=== PATIENT | female | born 2005 | race Caucasian/White ===

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

== ENCOUNTER 2025-02-22 10:50 | Emergency (ER) | payer OTHER, SELFPAY ==
[2025-02-22 10:57] VITALS: BP 148/92; PULSE 100; TEMP 36.8; O2SAT 99; BMI 28.1
--- NOTE | 2025-02-22 11:06 | ED.GENADUL1 ---
HPI HPI - General Adult General Chief complaint: Wound/Laceration Stated complaint: c left thumb puncture, & possible allergic react Time Seen by Provider: 02/22/25 10:55 History of Present Illness HPI narrative: 20-year-old female presents for an injury to her left thumb. She sustained an injury from a sharp metallic blade which she was grinding at work. This happened this morning. Her last tetanus shot was 8 years ago. Related Data Previous Rx's ?Medication ?Instructions ?Recorded cephalexin 250 mg capsule 250 mg PO Q8H #15 caps 02/22/25 Allergies Allergy/AdvReac Type Severity Reaction Status Date / Time codeine Allergy Severe Swelling Verified 02/22/25 10:57 of Lip/Tongue/Throat latex AdvReac Mild Hives Verified 02/22/25 10:57 Opioid HPI Opioid Management Most Recent Opioid Data: Last Pain Scale 7 08/29/24, 06:16 Review of Systems ROS Narrative A ten point review of systems is negative except as noted above. PFSH PFSH Social History Little interest or pleasure in doing things: not at all Feeling down, depressed, or hopeless: not at all Exam Narrative Exam Narrative: Nurses note and vital signs reviewed and patient is not hypoxic. General: The patient appears well and in no apparent distress. Patient is resting comfortably on cart. Skin: Warm, dry, no pallor noted. There is no rash noted. Head: Normocephalic, atraumatic Eye: Normal conjunctiva, no drainage Ears, Nose, Mouth, and Throat: oral mucosa is moist. Nares patent. Cardiovascular: Regular Rate and Rhythm Respiratory: Patient is in no distress, no accessory muscle use Back: non-tender GI: Nontender Musculoskeletal: The left thumb is examined there is a punctate wound at the distal tip. IP joint has intact motion. Neurological: A&O, normal speech Psychiatric: Cooperative Constitutional Vital Signs, click to edit/add: Last Vital Signs Temp 98.3 F 02/22/25 10:57 Pulse 100 H 02/22/25 10:57 Resp 16 02/22/25 10:57 BP 148/92 H 02/22/25 10:57 Pulse Ox 99 02/22/25 10:57 O2 Del Method Room Air 02/22/25 10:57 Course Vital Signs Vital signs: Vital Signs Temperature 98.3 F 02/22/25 10:57 Pulse Rate 100 H 02/22/25 10:57 Respiratory Rate 16 02/22/25 10:57 Blood Pressure 148/92 H 02/22/25 10:57 Pulse Oximetry 99 02/22/25 10:57 Oxygen Delivery Method Room Air 02/22/25 10:57 Temperature 98.3 F 02/22/25 10:57 Pulse Rate 100 H 02/22/25 10:57 Respiratory Rate 16 02/22/25 10:57 Blood Pressure 148/92 H 02/22/25 10:57 Pulse Oximetry 99 02/22/25 10:57 Oxygen Delivery Method Room Air 02/22/25 10:57 Medical Decision Making MDM Narrative Medical decision making narrative: X-ray my interpretation shows no foreign body. Tetanus status is up-to-date and she is placed on a short course of prophylactic Keflex. Treatment diagnosis and follow-up were discussed with the patient. Differential Diagnosis Differential Diagnosis: Puncture wound, 1 by Imaging Data Left hand x-ray: My impression: No foreign body Discharge Plan Discharge Chief Complaint: Wound/Laceration Clinical Impression: Puncture wound Patient Disposition: Home, Self-Care Time of Disposition Decision: 11:31 Condition: Good Mode of Transportation: Private Vehicle Prescriptions / Home Meds: New cephalexin 250 mg capsule 250 mg PO Q8H Qty: 15 0RF Print Language: Citizen Of [place] Instructions: Puncture Wound (ED) Referrals: Physician,Non-Staff, MD [Primary Care Provider] - 1 week
== END 2025-02-22 12:04 | disposition home or self-care (01) ==
PROVIDERS: Emergency Provider Emergency Medicine
DX: S61.032A Puncture wound without foreign body of left thumb without damage to nail, initial encounter (principal); W45.8XXA Other foreign body or object entering through skin, initial encounter
CPT/HCPCS: 73130; 99283

== ENCOUNTER 2025-08-20 08:55 | Emergency (ER) | payer BC, SELFPAY ==
[2025-08-20 09:02] VITALS: BP 156/89; PULSE 104; TEMP 36.7; O2SAT 99; BMI 28.1
--- NOTE | 2025-08-20 09:14 | ED_ITS ---
HPI - Female Genitourinary General Chief complaint: Urogenital-Female Stated complaint: symptoms of UTI Time Seen by Provider: 08/20/25 09:00 Source: patient Mode of arrival: walk-in History of Present Illness HPI Narrative: cc - urinary symptoms Symptoms started yesterday. Pt is about 8 weeks . She has dysuria and frequency and urine was dark, possibly blood in it. Mild suprapubic cramping. No vaginal bleeding or spotting. , LMP 06/25/25, EDC 04/01/26. Related Data Home Medications ?Medication ?Instructions ?Recorded ?Confirmed Vitamin PO DAILY 08/20/25 Previous Rx's ?Medication ?Instructions ?Recorded cephalexin 500 mg capsule 500 mg PO BID 7 days #14 cap s 08/20/25 Allergies Allergy/AdvReac Type Severity Reaction Status Date / Time codeine Allergy Severe Swelling Verified 08/20/25 09:01 of Lip/Tongue/Throat latex AdvReac Mild Hives Verified 08/20/25 09:01 PFSH PFSH Social History Little interest or pleasure in doing things: not at all Feeling down, depressed, or hopeless: not at all Exam Narrative Exam Narrative: Nurses notes and vital signs reviewed and patient is not hypoxic. afebrile General: Well-appearing and in no apparent distress. Skin: Warm, dry, no pallor noted. Eye: Pupils are equal, round and EOMI. No scleral icterus. Ears, Nose, Mouth, and Throat: Oral mucosa is moist Cardiovascular: Regular Rate and Rhythm without murmur, gallop or rub. Respiratory: No accessory muscle use or respiratory distress. Lungs are clear to auscultation, no wheezing, rales or rhonchi Back: No CVA tenderness Musculoskeletal: normal ROM GI: Abdomen is soft, non-distended. Normal bowel sounds. No suprapubic tenderness to palpation. No rebound, guarding, or rigidity noted. Neurological: A&O x4. No cranial nerve dysfunction observed. No truncal ataxia. Moves all extremities. Sensation intact. Psychiatric: Cooperative and interactive. Normal mood and affect. Constitutional Vital Signs, click to edit/add: Last Vital Signs Temp 98.1 F 08/20/25 09:02 Pulse 104 H 08/20/25 09:02 Resp 18 08/20/25 09:02 BP 156/89 H 08/20/25 09:02 Pulse Ox 99 08/20/25 09:02 O2 Del Method Room Air 08/20/25 09:02 Course Vital Signs Vital signs: Vital Signs Temperature 98.1 F 08/20/25 09:02 Pulse Rate 104 H 08/20/25 09:02 Respiratory Rate 18 08/20/25 09:02 Blood Pressure 156/89 H 08/20/25 09:02 Pulse Oximetry 99 08/20/25 09:02 Oxygen Delivery Method Room Air 08/20/25 09:02 Temperature 98.1 F 08/20/25 09:02 Pulse Rate 104 H 08/20/25 09:02 Respiratory Rate 18 08/20/25 09:02 Blood Pressure 156/89 H 08/20/25 09:02 Pulse Oximetry 99 08/20/25 09:02 Oxygen Delivery Method Room Air 08/20/25 09:02 MDM - Female Genitourinary MDM Narrative Medical decision making narrative: Urine obtained and sent for testing. UA reveals findings consistent with acute urinary tract infection. Urine cultu res pending. Patient was discharged home with a prescription for Keflex 500 mg twice daily for 1 week. She will follow-up with her finding fastener. Lab Data Attestation: I reviewed the patient's lab results. Labs: Lab Results 08/20/25 Range/Units 09:00 Urine Color Lt. yellow (YELLOW) Urine Clarity Clear (CLEAR) Urine pH 7.0 (5.0-9.0) Ur Specific [place] 1.010 (1.005-1.025) Urine Protein Negative (NEG/TRACE) mg/dL Urine Glucose (UA) Negative (NEGATIVE) mg/dL Urine Ketones Negative (NEGATIVE) mg/dL Urine Occult Blood Moderate A (NEGATIVE) Urine Nitrite Negative (NEGATIVE) Urine Bilirubin Negative (NEGATIVE) Urine Urobilinogen 1.0 (0.2-1.0) EU/dL Ur Leukocyte Esterase Small A (NEGATIVE) Urine RBC 5-10 A (0-2) #/HPF Urine WBC 2-5 A (NONE SEEN) #/HPF Ur Squamous Epith Cells Few A (NONE/RARE) #/LPF Urine Crystals None seen (None Seen) #/HPF Urine Bacteria Trace A (NONE SEEN) #/HPF Urine Casts None seen (NONE SEEN) #/LPF Urine Mucus None seen (NONE SEEN) Ur Culture Indicated? Yes-[facility] [place] Discharge Plan Discharge Chief Complaint: Urogenital-Female Clinical Impression: Urinary tract infection Patient Disposition: Home, Self-Care Time of Disposition Decision: 09:58 Prescriptions / Home Meds: New cephalexin 500 mg capsule 500 mg PO BID 7 Days Qty: 14 0RF No Action Vitamin tablet PO DAILY Print Language: [place] Instructions: Urinary Tract Infection in (ED) Referrals: Physician,Non-Staff, MD [Primary Care Provider] - 1 week
--- OUTSIDE RECORDS SUMMARY | 2025-08-20 09:16 | XMS_ITS | Patient Health Record ---
Author Organization [facility] in [place] Address [address] [place] [address] Support Name Relationship Address Phone Bassam Padron Emergency Contact Unknown Madie Padron Guarantor Unknown Reason For Referral No Information Plan Of Treatment No Information Insurance Providers Payer Name Payer Address Payer Phone Subscriber Number Group Number Insured Name Patient Relationship to Insured Coverage Start Date Coverage End Date SELF PAY ON PATIENT [employer] Jose Padronelf - patient is the [id number]/[id number]
--- OUTSIDE RECORDS SUMMARY | 2025-08-20 09:16 | XMS_ITS | Clinical Summary ---
Author Organization [facility] Address [address] [place] [address] Care Team Providers Care Supervisor Correspondence Section Name Role Phone Unavailable Primary Care Provider Unavailabl e Family History RelationNameStatusCommentsFatherAliveMotherAlive Social History Tobacco UseTypesPacks/DayYears UsedDateSmoking Tobacco: Never Tobacco Cessation:Counseling Given: Not Answered Alcohol UseStandard Drinks/WeekCommentsNever0 (1 standard drink = 0.6 oz pure alcohol)CommentsUnknownSex and Gender InformationValueDate RecordedSex Assigned at BirthNot on fileLegal OxyHyrztm76/15/2023 7:15 PM EDTGender Identity Not on fileSexual OrientationNot on file Last Filed Vital Signs Vital SignReadingTime TakenCommentsBlood Pressure--Pulse--Temperature-- Respiratory Rate--Oxygen Saturation--Inhaled Oxygen Concentration--Amkiaa44.1 kg (170 lb)02/21/2020 12:00 PM ISEOjoira176.3 cm (5' 9 )02/21/2020 12:00 PM EDTBody Mass Index25. 12:00 PM EDT Plan of Treatment DateTypeDepartmentCare Team (Latest Contact Info)Ywtgaryajnr31/07/2025 9:30 AM ESTAncillary [place] [address] 08/25/2025 10:00 [place] [address] Insurance
--- OUTSIDE RECORDS SUMMARY | 2025-08-20 09:16 | XMS_ITS | CCD ---
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 above:Performed By: #### CDP, BMP #### [facility] [address] [place] [address] Internet Marketing Director: Dionicio Bojorquez MDGFR/1.73 sq M.predicted among non-blacks MDRD (S/P/Bld) [Vol rate/Area]mL/min/{1.73_m2}Normal>60[facility] Community HospitalComment on above:Result Comment: These results are not intended for use in patients <18 years of age. eGFR results are calculated without a race factor using the 2020 CKD-EPI equation. Careful clinical correlation is recommended, particularly when comparing to results calculated using previous equations. The CKD-EPI equation is less accurate in patients with extremes of muscle mass, extra-renal metabolism of creatine, excessive creatine ingestion, or following therapy that affects renal tubular secretion.Performed By: #### CDP, BMP #### [facility] [address] [place] [address] Internet Marketing Director: Dionicio Bojorquez MDGlucose [Mass/Vol]124 mg/sKFmij48-24AfahuEnloe Medical CenterComment on above:Performed By: #### CDP, BMP #### [facility] [address] [place] [address] Internet Marketing Director: FRANCISCA Mayootassium [Moles/Vol]4.7 mmol/LNormal3.7-5.3 [facility] Community HospitalComment on above:Result Comment: Specimen hemolysis has exceeded the interference as defined by Michelle. Value may be falsely increased. Suggest recollection if clinically indicated.Performed By: #### CDP, BMP #### [facility] [address] [place] [address] Internet Marketing Director: HAROLDO Mayoodium [Moles/Vol]138 mmol/UFcuuuh450-493AbpbxHarrison Community HospitalComment on above:Performed By: #### CDP, BMP #### [facility] [address] [place] [address] Internet Marketing Director: Dionicio Bojorquez MDUrea nitrogen [Mass/Vol]16 mg/dLNormal6-20[facility] HospitalComment on above:Performed By: #### CDP, BMP #### [facility] [address] [place] [address] Internet Marketing Director: Dionicio Bojorquez [facility] with Auto Differentialon 02-33-3159Uicpnyerg (Bld) [#/Vol][facility] HealthBasophils/100 WBC (Bld)0 %0 - 2 %[facility] HealthEosinophils (Bld) [#/Vol][facility] Eosinophils/100 WBC (Bld)0 %Low1 - 4 %[facility] HealthErythrocyte distribution width (RBC) [Ratio]13.4 %11.8 - 14.4 %[facility] Hematocrit (Bld) [Volume fraction]37.9 %36.3 - 47.1 %[facility] Hemoglobin (Bld) [Mass/Vol]12.8 g/dL11.9 - 15.1 g/dLBon Secours [facility] Immature granulocytes (Bld) [#/Vol]0.05 10*3/uLBon Secours Mercy HealthImmature granulocytes/100 WBC (Bld)0 %0[facility] HealthInterpretation and review of laboratory resultsAbnormalBon Secours Mercy HealthLymphocytes/100 WBC (Bld)12 %Low25 - 45 %[facility] SecMain Campus Medical CenterLymphocytes/100 WBC (Bld)1.50 %[facility] SecOhioHealth Hardin Memorial HospitalH (RBC) [Entitic mass]28.5 pg25.2 - 33.5 pgBon SecOhioHealth Hardin Memorial HospitalHC (RBC) [Mass/Vol]33.8 g/dL28.4 - 34.8 g/dLBon SecOhioHealth Hardin Memorial HospitalV (RBC) [Entitic vol]84.4 fL82.6 - 102.9 fLBon SecHuey P. Long Medical Center HealthMonocytes/100 WBC (Bld)3 %2 - 8 %[facility] SecMain Campus Medical CenterMonocytes/100 WBC (Bld)0.38 %Bon SecMain Campus Medical CenterNeutrophils/100 WBC (Bld)85 %High34 - 64 %Bon SecMain Campus Medical CenterNucleated RBC/100 WBC (Bld) [Ratio]0.0 %0.0 per 100 WBCBon [facility] HealthPlatelet mean volume (Bld) [Entitic vol]10.3 fL8.1 - 13.5 fLBon SecHuey P. Long Medical Center HealthPlatelets (Bld) [#/Vol]248 10*3/uLBon SecHuey P. Long Medical Center HealthRBC (Bld) [#/Vol]4.49 10*6/uL3.95 - 5.11 m/uLBon [facility] Ment[facility] HospitalSegmented neutrophils/100 WBC (Bld)10.19 %HighBon [facility] Clinic [facility] HospitalWBC other (Bld) [#/Vol]12.1Bon SecAscension All Saints Hospital SatelliteCBC with Diffon [id number]. Basophil<0.69Qzbqao6.00-0.20[facility] Comment on above:Performed By: #### CDP, BMP #### [facility] [address] [place] [address] Internet Marketing Director: Boy Mayo. Eosinophil<0.02Hhmufj2.00-0.44Harrison Community HospitalComment on above:Performed By: #### CDP, BMP #### [facility] [address] [place] [address] Internet Marketing Director: MDAbs. Maria EstherImm.Granulocyte0.05 k/uLNormal0.00-0.30[facility] Community HospitalComment on above:Performed By: #### CDP, BMP #### [address] [address] Internet Marketing Director: Boy Mayo.Neutrophil (Seg)10.19 k/uLHigh1.80-8.00Harrison Community HospitalComment on above:Performed By: #### CDP, BMP #### [address] [address] Internet Marketing Director: Dionicio Bojorquez MDBasophils/100 WBC (Bld)0 %Normal0-2MEnloe Medical CenterComment on above:Performed By: #### AMELIE, BMP #### [address] [address] Internet Marketing Director: Dionicio Bojorquez MDEosinophils/100 WBC (Bld)0 %Low1-4[facility] Community HospitalComment on above:Performed By: #### AMELIE, BMP #### [address] [address] Internet Marketing Director: Dionicio Bojorquez MDErythrocyte distribution width (RBC) [Ratio]13.4 %Gmmmib04.8-14.4[facility] Community HospitalComment on above:Performed By: #### CDP, BMP #### [facility] [address] [place] [address] Internet Marketing Director: Dionicio Bojorquez MDHematocrit (Bld) [Volume fraction]37.9 %Normal 36.3-47.1MEnloe Medical CenterComment on above:Performed By: #### CDP, BMP #### [address] [address] Internet Marketing Director: Dionicio Bojorquez MDHemoglobin (Bld) [Mass/Vol]12.8 g/dLNormal 11.9-15.1MEnloe Medical CenterComment on above:Performed By: #### AMELIE, BMP #### [address] [address] Internet Marketing Director: Dionicio Bojorquez MDImmature granulocytes/100 WBC (Bld)0 %Normal0 Harrison Community HospitalComment on above:Performed By: #### AMELIE, BMP #### [address] [address] Internet Marketing Director: Dionicio Bojorquez MDLymphocytes (Bld) [#/Vol]1.50 10*3/uLNormal 1.20-5.20[facility] HospitalComment on above:Performed By: #### AMELIE, BMP #### [address] [address] Internet Marketing Director: Ruddy Mayomphocytes/100 WBC (Bld)12 %Erk16-57ImpalHarrison Community HospitalComment on above:Performed By: #### AMELIE, BMP #### [address] [address] Internet Marketing Director: THANH MayoCH (RBC) [Entitic mass]28.5 mbAdrigy11.2-33.5 [facility] Community HospitalComment on above:Performed By: #### AMELIE, BMP #### [address] [address] Internet Marketing Director: THANH MayoCHC (RBC) [Mass/Vol]33.8 g/xSGpkkyh68.4-34.8 [facility] HospitalComment on above:Performed By: #### CDP, BMP #### [address] [address] Internet Marketing Director: HTANH MayoCV (RBC) [Entitic vol]84.4 dRKhabwo47.6-102.9 [facility] HospitalComment on above:Performed By: #### CDP, BMP #### [address] [address] Internet Marketing Director: Dionicio Bojorquez MDMonocytes (Bld) [#/Vol]0.38 10*3/uLNormal 0.10-1.40[facility] Community HospitalComment on above:Performed By: #### CDP, BMP #### [address] [address] Internet Marketing Director: THANH Mayoonocytes/100 WBC (Bld)3 %Normal2-8[facility] Community HospitalComment on above:Performed By: #### AMELIE, BMP #### [place] [address] Internet Marketing Director: Michelle Mayoophil (Seg)85 %Zofv15-93BpihoHarrison Community HospitalComment on above:Performed By: #### AMELIE, BMP #### [address] [address] Internet Marketing Director: Dionicio Bojorquez MDNRBC Automated0.0 per 100 WBCNormal0.0H[facility] Community HospitalComment on above:Performed By: #### AMELIE, BMP #### [place] [address] Internet Marketing Director: Brooks Mayotelet mean volume (Bld) [Entitic vol]10.3 fL Normal8.1-13.5H[facility] Community HospitalComment on above:Performed By: #### CDP, BMP #### [address] [address] Internet Marketing Director: Dionicio Bojorquez MDPlatelets (Bld) [#/Vol]248 10*3/nZKwcovd315-198 [facility] HospitalComment on above:Performed By: #### AMELIE, BMP #### [facility] [address] [place] [address] Internet Marketing Director: OLLIE Mayo ([facility]) [#/Vol]4.49 10*6/uLNormal3.95-5.11 [facility] HospitalComment on above:Performed By: #### AMELIE, BMP #### [facility] [address] [place] [address] Internet Marketing Director: GLEN Mayo ([facility]) [#/Vol]12.1 10*3/uLNormal4.5-13.5[facility] HospitalComment on above:Performed By: #### AMELIE, BMP #### [facility] [address] [place] [address] Internet Marketing Director: Lashonda Mayo Panel InformationOrdered By: Radha Ortega on 69-13-5155Csrqf Strep (POC)[facility] HospitalCOVID + FLU Quick Testingon [id number]-CoV-2 (COVID-19) RNA OSCAR+probe Ql (Unsp spec)Negative [employer] Other COVID + FLU Quick TestingNegativeHenderson ClientShow Other Quick Strepon 10-26-2023S. pyogenes Org specific cx Ql (Throat)NegativeHenderson ClientShow Other Quick StrepTopTechPhoto ClientShow Other CARDIAC MATIAS ADMITon [id number] [Catalytic activity/Vol]200 U/LCritically xowq50-072MizMercy Health Urbana HospitalComment on above: Performed By: #### TOM RAMOS #### [facility] [address] [place], [place] [address] Dr. Alex Savage.MB [Mass/Vol]1.00 ng/mLNormal<=3.60The [facility] Comment on above:Performed By: #### TOM RAMOS #### [facility] [address] [place] [address] [address] Alex DuqueOP<4.7Ezkqsq3.0-51.3The [facility] HospitalComment on above: Result Comment: CUT-OFF POINTS HAVE BEEN ESTABLISHED BASED ON THE FOURTH UNIVERSAL DEFINITIONS OF MYOCARDIAL INFARCTION. THE UPPER REFERENCE LIMIT (URL) OF TROPONIN, DEFINED THE 99TH PERCENTILE OF cTnI DISTRIBUTION IN A REFERENCE POPULATION, HAS BEEN CONFIRMED THE DECISION THRESHOLD FOR SD DIAGNOSIS.Performed By: #### BMP, CMADM #### [facility] [address] [place] [address] Dr. Alex NamMYO37 ng/mLNormal9-82The [facility] HospitalComment on above: Performed By: #### BMP, CMADM #### [facility] [address] [place] [address] Dr. Alex Barber AUTO DIFFon [id number] #0.0 103/ulNormal0.0-0.1The [facility] HospitalComment on above:Performed By: #### CBC #### [facility] [address] [place] [address] Dr. Alex Obandosophils/100 WBC (Bld)0.4 %Normal0.2-2.0The [facility] Comment on above:Performed By: #### CBC #### [facility] [address] [place] [address] Dr. Alex Stayc #0.1 103/ulNormal0.0-0.7The [facility] HospitalComment on above: Performed By: #### CBC #### [facility] [address] [place] [address] Dr. Alex Nicoleosinophils/100 WBC (Bld)0.5 %Critically low0.9-7.0The [facility] HospitalComment on above:Performed By: #### CBC #### [facility] [address] [place] [address] Dr. Alex Nicolerythrocyte distribution width (RBC) [Ratio]12.9 %Vgzfbd81.0-15.0 The [facility] HospitalComment on above:Performed By: #### CBC #### [facility] [address] [place] [address] Dr. Alex Finkatocrit (Bld) [Volume fraction]43.5 %Csnpyx56.0-48.0The [facility] HospitalComment on above:Performed By: #### CBC #### [facility] [address] [place] [address] Dr. Alex NamHemoglobin (Bld) [Mass/Vol]13.6 g/jAAgnytt87.0-16.0The [facility] HospitalComment on above:Performed By: #### CBC #### [facility] [address] [place] [address] Dr. Alex Haji #0.03 10e3/ulNormal0.00-0.03The [facility] HospitalComment on above:Performed By: #### CBC #### [facility] [address] [place] [address] Dr. Alex Haji %0.3 %Normal0.0-0.5The [facility] HospitalComment on above: Performed By: #### CBC #### [facility] [address] [place] [address] Dr. Alex Gipson #3.7 103/ulNormal1.2-3.8The [facility] HospitalComharper university hospital on above:Performed By: #### CBC #### [facility] [address] [place] [address] Dr. Alex Molinamphocytes/100 WBC (Bld)37.8 %Ufvkvw50.5-60.0The [facility] HospitalComment on above:Performed By: #### CBC #### [facility] [address] [place] [address] Dr. Alex ReardonUAL DIFF REQNONormalThe [facility] HospitalComment on above: Performed By: #### CBC #### [facility] [address] [place] [address] Dr. Alex Chu (RBC) [Entitic mass]28.5 nuUxaxde74.7-34.0The [facility] HospitalComment on above:Performed By: #### CBC #### [facility] [address] [address] [address] Alex BenitoHC (RBC) [Mass/Vol]31.3 g/zERhqakg23.9-35.2The [facility] HospitalComment on above:Performed By: #### CBC #### [facility] [address] [place] [address] Dr. Alex BenitoV (RBC) [Entitic vol]91.2 yKYckocw02.1-95.6The [facility] HospitalComment on above:Performed By: #### CBC #### [facility] [address] [place] [address] Dr. Alex Javed #0.9 103/ulCritically high0.3-0.8The [facility] Comment on above:Performed By: #### CBC #### [facility] [address] [place] [address] Dr. Alex Denisocytes/100 WBC (Bld)8.9 %Normal1.7-12.0The [facility] Comment on above:Performed By: #### CBC #### [facility] [address] [place] [address] Dr. Alex Foreman #5.1 103/ulNormal1.4-6.5The [facility] HospitalComment on above:Performed By: #### CBC #### [facility] [address] [place] [address] Dr. Alex Anayautrophils/100 WBC (Bld)52.1 %Wfzybv94.0-75.0The [facility] HospitalComment on above:Performed By: #### CBC #### [facility] [address] [place] [address] Dr. Alex Balet mean volume (Bld) [Entitic vol]10.2 fLNormal9.5-13.5The [facility] HospitalComment on above:Performed By: #### CBC #### [facility] [address] [place] [address] Dr. Alex NamPLT288 103/cxTkpkcf822-850Hbc [facility] HospitalComment on above: Performed By: #### CBC #### [facility] [address] [place] [address] [address] Alex NamRBC4.77 106/ulNormal3.40-5.30The [facility] Hospitalment on above:Performed By: #### CBC #### [facility] [address] [place] [address] [address] Alex NamWBC9.8 103/ulNormal4.0-11.0The [facility] HospitalComment on above: Performed By: #### CBC #### [facility] [address] [address] [address] Alex Macario-19 PCR ([facility])on [id number]-CoV-2 (COVID-19) RNA OSCAR+probe Ql (Unsp spec)Not detectedNormalNOT DETECTEDThe [facility] Comment on above:Result Comment: This test is not yet approved or cleared by the [place] FDA. When there are no FDA-approved or cleared tests available, and other criteria are met, FDA can make tests available under an emergency access mechanism called an Emergency Use Authorization (EUA). The EUA for this test is supported by the [place] of Health and Human Service's (HHS's) declaration that circumstances exist to justify the emergency use of in vitro diagnostics for the detection and/or diagnosis of the virus that causes COVID- 19. This EUA will remain in effect (meaning [...] of clinical signs and symptoms consistent with SARS-CoV-2.Performed By: #### DDIM #### [facility] [address] [place] [address] Dr. Alex Garrido-DIMERon [id number]-DIMER<0.19Normal<=0.59[facility] Comment on above:Performed By: #### DDIM #### [facility] [address] [place] [address] Dr. Alex Moore [facility] on above:Result Comment: Increases in D-Dimer concentration observed with thromboembolic events [...] stress, and generalized hospitalization. Performed By: #### DDIM #### [facility] [address] [place] [address] Dr. Alex Buenrostro AND B AGon [id number] North Health Center on above:Result Comment: Negative for Flu A protein angiten. Infection due to Flu A cannot be ruled out. FluA angiten in the sample may be below the detection limit of the test.Performed By: #### DDIM #### [facility] [address] [place] [address] Dr. Alex MooreUBNEGSamaritan North Health Center on above: Result Comment: Negative for Flu B protein antigen. Infection due to Flu B cannot be ruled out. FluB antigen in the sample may be below the detection limit of the test.Performed By: #### DDIM #### [facility] [address] [place] [address] Dr. Alex Buenrostro AGNegativeNormalNEGATIVE SEE COMMENTThe [facility] on above:Performed By: #### DDIM #### [facility] [address] [place] [address] Dr. Alex Cruz AGNegativeNormalNEGATIVE SEE COMMENTThe [facility] on above:Performed By: #### DDIM #### [facility] [address] [place] [address] Dr. Alex Marinelli URon [id number], QUALNegativeNormalNEGATIVEThe [facility] HospitalComment on above:Performed By: #### PREGU #### [facility] [address] [place] [address] [address] Alex Odom CHEM 8 (BAS METB)on [id number] [facility] Comment on above:Performed By: #### BMP, CMADM #### [facility] [address] [place] [address] [address] Alex Hayon gap [Moles/Vol]11.6 mmol/LNormalMercy Health Urbana Hospital Comment on above:Performed By: #### BMP, CMADM #### [facility] [address] [place] [address] Dr. Alex NamCalcium [Mass/Vol]9.9 mg/dLNormal8.5-10.1[facility] Comment on above:Performed By: #### BMP, CMADM #### [facility] [address] [place] [address] [address] Alex NamChloride [Moles/Vol]103 mmol/PHxbiuf23-111QitMercy Health Urbana Hospital Comment on above:Performed By: #### BMP, CMADM #### [facility] [address] [place] [address] Dr. Alex NamCO2 [Moles/Vol]29.2 mmol/YUpkmok09.0-32.0The [facility] Comment on above:Performed By: #### BMP, CMADM #### [facility] [address] [place] [address] Dr. Alex NamCreatinine [Mass/Vol]0.94 mg/dLNormal0.55-1.02The [facility] HospitalComment on above:Performed By: #### BMP, CMADM #### [facility] [address] [place] [address] Dr. Alex NicoleGFR-AF AMERICANNormal>=60The [facility] HospitalComment on above: Performed By: #### BMP, CMADM #### [facility] [address] [place] [address] Dr. Alex NicoleGFR-NON AF AMERICANNormal>=60The [facility] HospitalComment on above:Performed By: #### BMP, CMADM #### [facility] [address] [place] [address] [address] Alex NamGlucose [Mass/Vol]95 mg/sGKbhktz29-702FnnMercy Health Urbana Hospital Comment on above:Performed By: #### BMP, CMADM #### [facility] [address] [place] [address] [address] Alex NamPotassium [Moles/Vol]3.8 mmol/LNormal3.5-5.1[facility] Comment on above:Performed By: #### RICHARD, CMADM #### [facility] [address] [place] [address] Dr. Alex NamSodium [Moles/Vol]140 mmol/RObengv006-337EcnMercy Health Urbana Hospital Comment on above:Performed By: #### RICHARD, CMADM #### [facility] [address] [place] [address] Dr. Alex NamUrea nitrogen [Mass/Vol]18.0 mg/dLNormal6.4-19.3TKettering Health TroyComment on above:Performed By: #### RICHARD, CMADM #### [facility] [address] [place] [address] Dr. Alex Kirkland nitrogen/Creatinine [Mass ratio]19.1 mg/mgNoDayton Osteopathic HospitalComment on above:Performed By: #### RICHARD, CMADM #### [facility] [address] [place] [address] Dr. Alex NamXR CHEST 1 Von [id number] CHEST 1 VEXAMINATION: XR CHEST 1 V HISTORY: Shortness of breath COMPARISON: None available. TECHNIQUE: Portable chest FINDINGS: The lung parenchyma is free of consolidation or infiltrate. No pneumothorax or pleural effusion. The cardiac, mediastinal and hilar contours are normal. The visualized osseous structures exhibit no gross abnormality. IMPRESSION: No acute cardiopulmonary abnormality. Electronically authenticated by: CHRIS WONG Date: 2022-11-12 22:43[facility] - DublinCULTURE URINEon [id number] URINEIsolate 1 Escherichia coli >100,000 cfu/mL of ORGANISM 1 Escherichia coli ANTIBIOTIC M.I.C RX STATUS Ampicillin 4 S F Ampicillin/Sulbactam <=2 S F Piperacillin/Tazobactam <=4 S F Cefazolin <=4 S F Ceftazidime <=1 S F Ceftriaxone <=1 S F Ertapenem <=0.5 S F Imipenem <=0.25 S F Amikacin <=2 S F Gentamicin <=1 S F Tobramycin <=1 S F Ciprofloxacin <=0.25 S F Levofloxacin <=0.12 S F Nitrofurantoin <=16 S F Trimethoprim/Sulfamethoxazole <=20 S FNormalMercy Health Urbana HospitalComment on above:Performed By: #### URCX #### [facility] [address] [place] [address] Dr. Alex Watson URINE PROFILEon [id number] Ql (U)NegativeNormal NEGATIVEMercy Health Urbana HospitalComment on above:Performed By: #### UMICRO, ERUR, PREGU #### [facility] [address] [place] [address] Dr. Alex Bowles (U)CLEARNormalCLEARMercy Health Urbana HospitalComharper university hospital on above: Performed By: #### UMICRO, ERUR, PREGU #### [facility] [address] [place] [address] Dr. Alex Gasca (U)YELLOWNormalYELLOWMercy Health Urbana HospitalComment on above: Performed By: #### UMICRO, ERUR, PREGU #### [facility] [address] [place] [address] Dr. Alex Vang micrscopic examination will be performed if indicated. NormalMercy Health Urbana HospitalComment on above:Performed By: #### UMICRO, ERUR, PREGU #### [facility] [address] [place] [address] Dr. Alex Mendozaose Ql (U)NegativeNormalNEGATIVEMercy Health Urbana HospitalComment on above:Performed By: #### UMICRO, ERUR, PREGU #### [facility] [address] [place] [address] [address] Alex NamHemoglobin Ql (U)NegativeNormalNEGATIVEMercy Health Urbana Hospital Comment on above:Performed By: #### UMICRO, ERUR, PREGU #### [facility] [address] [place] [address] [address] Alex NamKetones Ql (U)NegativeNormalNEGATIVEThe [facility] HospitalComment on above:Performed By: #### UMICRO, ERUR, PREGU #### [facility] [address] [place] [address] [address] Alex NamLEUKOCYTESNegativeNormalNEGATIVEMercy Health Urbana HospitalComment on above:Performed By: #### UMICRO, ERUR, PREGU #### [facility] [address] [place] [address] Dr. Alex NamNitrite Ql (U)PositiveAbnormalNEGATIVEMercy Health Urbana Hospital Comment on above:Performed By: #### UMICRO, ERUR, PREGU #### [facility] [address] [place] [address] Dr. Alex NampH (U)7.5 [pH]Normal5-9The [facility] HospitalComment on above: Performed By: #### UMICRO, ERUR, PREGU #### [facility] [address] [place] [address] Dr. Alex NamSPEC GRAVITY1.864Hqokdp3.005-<=1.025The [facility] HospitalComment on above:Performed By: #### UMICRO, ERUR, PREGU #### [facility] [address] [address] [address] Alex NamUA PROTEINNegativeNormalNEGATIVE/ TRACEMercy [facility] Comment on above:Performed By: #### UMICRO, ERUR, PREGU #### [facility] [address] [address] [address] Alex NamUR MICRO INDINDICATEDNormalThe [facility] HospitalComment on above: Performed By: #### UMICRO, ERUR, PREGU #### [facility] [address] [place] [address] Dr. Alex Grigsby Qn (U)1.0 {Colin'U}/dLNormal0.2 - 1.0The [facility] Hospitalment on above:Performed By: #### UMICRO, ERUR, PREGU #### [facility] [address] [place] [address] Dr. Alex WilsonGNANCY URon 44-41-9703MEFKMIHSM, QUALNegativeNormalNEGATIVEThe [facility] HospitalComment on above:Performed By: #### UMICRO, ERUR, PREGU #### [facility] [address] [place] [address] Dr. Alex Hamlin MICROSCOPIC ONLYon 74-97-1961XYMOLQFHEOLLRBwnzbxliRRSO SEEN The [facility] HospitalComharper university hospital on above:Performed By: #### UMICRO, ERUR, PREGU #### [facility] [address] [place] [address] Dr. Alex Gary identified Cx Nom (U)INDICATEDSt. Louis Va Medical CenteralThParkview Health Bryan HospitalComharper university hospital on above:Performed By: #### UMICRO, ERUR, PREGU #### [facility] [address] [place] [address] Dr. Alex Valencia SEENNormalNONE SEENMercy Health Urbana HospitalComharper university hospital on above:Performed By: #### UMICRO, ERUR, PREGU #### [facility] [address] [place] [address] Dr. Alex Bess LM Nom (Urine sed)NONE SEENNormalNONE SEENMercy Health Urbana HospitalComharper university hospital on above:Performed By: #### UMICRO, ERUR, PREGU #### [facility] [address] [place] [address] Dr. Johnson ChangEpithelial cells LM Ql (Urine sed)FEWAbnormalNONE SEEN /RAREThe [facility] HospitalComment on above:Performed By: #### UMICRO, ERUR, PREGU #### [facility] [address] [place], [place] [address] Dr. Alex NamMUCOUSTRACEAbnormalNONE SEENMercy Health Urbana HospitalComment on above:Performed By: #### UMICINA, ERUR, PREGU #### [facility] [address] [place], [place] [address] Dr. Alex NamRBCNONE SEENAbnormal0-2[facility] HospitalComment on above: Performed By: #### UMICINA, ERUR, PREGU #### [facility] [address] [place], [place] [address] Dr. Alex NamWBC5-10AbnormalNONE SEENThe [facility] HospitalComment on above: Performed By: #### BELEMICINA, ERUR, PREGU #### [facility] [address] [place], [place] [address] Dr. Alex Nam Vital Signs Date TimeVital SignValuePerforming HgxznaftyWxoiamkf79-47-2186 11:00-0500Body wldkhefoanx06.9 [degF]Manjit Frey MD Work Phone: [facility]01-06-2025 11:00-0500Diastolic blood odjsrayp19 mm[Hg]Manjit Frey MD Work Phone: [facility]01-06-2025 11:00-0500Heart rate90 /Uli Frey MD Work Phone: [facility]01-06-2025 11:00-0500 Respiratory rate16 /minManjit Frey MD Work Phone: [facility]01-06-2025 11:00-9429YiG0% (BldA) [Mass fraction]99 %Manjit Frey MD Work Phone: Bon [facility]01-06-2025 11:00-0500Systolic blood mm[Hg]Manjit Frey MD Work Phone: [facility]01-06-2025 07:53-0500Body .3 cmCameron Tk MD Work Phone: [facility]ronT2 BiosystemsLeovmi02-32-9650 07:53-0500Body mass index (BMI) [Ratio]28.06 kg/u6OjrtuqiManjit Frey MD Work Phone: [facility]ronT2 BiosystemsUrdmqk70-26-3695 07:53-0500Body iyxach08.18 kgManjit Frey MD Work Phone: [facility]ronT2 BiosystemsXawzvd12-22-2267 07:22-0500Body ttovkbbgsuu98.7 [degF]Angelica Arora I, DO Work Phone: [facility]ronT2 BiosystemsKdsdll37-98-2028 07:22-0500Diastolic blood nmkacibq07 mm[Hg]Angelica Arora I, DO Work Phone: [facility]ronT2 BiosystemsGafyfy04-69-9017 07:22-0500Heart rate51 /Carlajadon Maite Barboza, DO Work Phone: [facility] [employer]11-12-2024 07:22-0500 Respiratory rate18 /Kelsey Arora I, DO Work Phone: [facility]ronT2 BiosystemsHndoix03-07-1034 07:22-5978GrS3% (BldA) [Mass fraction]99 %Angelica Arora I, DO Work Phone: [facility]ronT2 BiosystemsIqehix17-60-3638 07:22-0500Systolic blood uyfrezol016 mm[Hg]Angelica Arora I, DO Work Phone: [facility] [employer] [facility]ronT2 BiosystemsHhrefk29-20-0546 08:00-0500Body kdzwac839 cmAlejandracitlallijadon Grantdionicioawilda I, DO Work Phone: [facility]ronT2 BiosystemsXtxouh95-32-0730 08:00-0500Body mass index (BMI) [Ratio]30.11 kg/c7Nleojvat Grantdionicioawilda Barboza, DO Work Phone: [facility]11-11-2024 08:00-0500Body uvwhtm78.11 kgMoeusebio Arora I, DO Work Phone: bon [facility]09-14-2024 12:12-0400Body xvinrr407.48 cmC[facility]09-14-2024 12:12-0400Body mass index (BMI) [Percentile] Per age and sex84.7 %[facility] 07-02-2024 12:12-0400Body mass index (BMI) [Ratio]26.2 kg/y3UnhbpcrfzC[facility] Clinic [facility]09-14-2024 12:12-0400Body vlaikhofefr23.2 [degF][facility]09-14-2024 12:12-0400Body pylgyk27.09 kgC[facility]09-14-2024 12:12-0400Diastolic blood xohhbhri67 mm[Hg][facility]09-14-2024 12:12-0400Heart llhp845 /[facility]09-14-2024 12:12-0400Respiratory rate16 /[facility]09-14-2024 12:12-6284CrC4% (BldA) [Mass fraction]99 %[facility]09-14-2024 12:12-0400Systolic blood dfdnzsju521 mm[Hg] [facility]01-08-2024 15:40-0500Body cehauq515.72 Charles Nicole Other [employer] Other 01-08-2024 15:40-0500Body mass index (BMI) [Ratio] 36.18 kg/x5FynxumMireille Nicole Other [employer] Other 01-08-2024 15:40-0500Body jvgglgwgdji111 [degF]Mireille Nicole Other [employer] Other 01-08-2024 15:40-0500Body ujqtpg409.96 kgMireille Nicole Other [employer] Other 01-08-2024 15:40-0500Respiratory rate18 /minAleklandonasif Bonnie Other [employer] Other 01-08-2024 15:40-4515PgS9% (BldA) [Mass fraction]98 % Mireille Tilleymond Other [employer] Other Encounters Encounter DateEncounter TypeCare ProviderFacilityStart: 04-16-2025 End: 18-94-0168Mwonoythn department patient visitNO PCP NO PCPProMedica St. [facility] Medical Centertart: 10-24-2024 End: 60-51-6053symumlenraLPYIDZE C [facility] Hospitaltart: 10-24-2024 End: 55-62-3104Gqyiotjfdd hospital visit by physicianManjit Frey MD Work Phone: stvz ORComment on above:Post-op pain (Primary Dx); Recurrent peritonsillar abscessStart: 04-28-5459vrhjmligunLIGDHKA C SHEEHANFirelands Regional Medical Centertart: 08-29-2024 End: 00-25-9219Pgmpcbxkfw and management of inpatientMohammad Maite DO Work Phone: stvz Observation UnitStart: 77-29-8923Hfkwbfhfhy and management of inpatientSLANRE OVALLEFirelands Regional Medical Centertart: 07-02-2024 End: 65-98-0959njghuaryscWapfdvkliUK [facility] Work Phone: Start: 07-02-2024 End: 94-14-5747Zyjinns encounter procedurePending Sale To [facility] Suraj Work Phone: Start: 10-26-2023 End: 53-76-9316mqhbnmkwqwEmdzrk Dymond Other [facility] [employer] Other Start: 15-71-6694Fsyybg outpatient new 20 minutes Mireille NicoleMERRILLG Urgent Care ClydeStart: 11-12-2022 End: 21-97-3703wwabekyxxeJCUDHC DIABFacility:O6Aceuh: 02-21-2022 End: 02-14-5058synfjujqlzPQ KANU G REINECKFacility:N5Hdduk: 01-17-2022 End: 24-91-8290xuootjjfsvDE KANU G REINECKFacility:H1 Procedures DateProcedureProcedure DetailPerforming ClinicianStart: 48-97-4317Wlyqm test visual color cmprsn Mira Frey MD Work Phone: Start: 77-07-7908Tzc prsmptv pthgnc organism scrn w/colony estimjSlanre Ovalle MD Work Phone: Start: 52-14-5523Rymiy metabolic panel calcium total Mark Ovalle MD Work Phone: Start: 61-40-7535Ugced Strep (POC) Plan of Treatment DateCare ActivityDetailAuthorStart: 44-01-1631CAcP/Tdap/Td vaccine (2 - Td or Tdap)DTaP/Tdap/Td vaccine (2 - Td or Tdap)[facility] CenterStart: 10-24-2024 End: 08-04-4978Unavilcutdjsn & adenoidectomyTONSILLECTOMY ADENOIDECTOMY Recurrent peritonsillar abscess 10/24/2024 9:13 AM [facility] Troytart: 54-06-2715TGZRF-19 Vaccine ( season)COVID-19 Vaccine ( season)[facility] CenterStart: 66-38-2352Plxcbvalx vaccinationFlu vaccine (#1)[facility] CenterStart: 27-77-4331Flnitsyhi B vaccine (1 of 3 - 19+ 3-dose series)Hepatitis B vaccine (1 of 3 - 19+ 3-dose series)[facility]BreakTheCrates.comR[place]: 93-79-4898Iykkpdqez C screeningHepatitis C screenBon [facility]: 91-43-2204Rinfbqrqz for Chlamydia trachomatisChlamydia/GC screenReston Hospital Center [employer]: 32-03-3662CFK vaccine (2 - 3-dose series)HPV vaccine (2 - 3-dose series)[facility] HospitalBreakTheCrates.comR[place]: 27-52-6357EWC screeningHIV [facility] [employer]: 95-80-3881Adzfbwkjs vaccine (1 of 2 - 13+ 2-dose series)Varicella vaccine (1 of 2 - 13+ 2-dose series)[facility] HospitalBreakTheCrates.comR[place]: 01-53-5972Xmfgobxxkq Screen Depression [facility] HospitalBreakTheCrates.comBlue Ridge Regional Hospitaltinuous pulse oximetryPulse oximetry, continuous Respiratory Care Routine Every 4hr until discontinued starting 08/29/2024 FrontstartComment on above:Every 4hr until discontinued starting 08/29/2024 End: 59-45-8928Jqqqkkw, Anaerobic and AerobicRiverside Walter Reed HospitalWidespace Phone: comment on above:One Time for 1 Occurrences starting 08/29/2024 until 08/29/2024 End: 70-40-9856OPBLAXDH PACU OXYGEN THERAPY PROTOCOLInitiate PACU Oxygen Therapy Protocol Respiratory Care Routine Continuous until discontinued starting 10/24/2024 [facility] Phone: comment on above:Continuous until discontinued starting 10/24/2024Oxygen therapy [Minimum Data Set]Initiate Oxygen Therapy Protocol Respiratory Care Routine As Needed until discontinued starting 08/19 [facility] Phone: Comment on above:As Needed until discontinued starting 08/29/2024athology studySurgical Pathology Lab Routine Recurrent peritonsillar abscess Release Upon Ordering for 1 Occurrences starting 10/24/2024 [facility] Phone: Comment on above:Release Upon Ordering for 1 Occurrences starting 10/24/2024 End: 55-93-3959JFBPJGDC PATHOLOGY REPORTSURGICAL PATHOLOGY REPORT Lab Routine Once for 1 Occurrences starting 10/24/2024 until 10/24/2024on [facility]3 HealthComment on above:Once for 1 Occurrences starting 10/24/2024 until 10/24/2024Vaginal pathogens panel - Vaginal fluid by OSCAR with probe detection [facility] Payers DatePayer CategoryPayerPolicy [id number] Cross Blue [id number] [id number] [id number] Social History DateTypeDetailFacilityUnknown if ever smokedNost. luke's hospital ClientShow Other Start: 08-29-2024 End: 11-90-0919Kxu Assigned At [facility] HospitalCuralate [facility] AkronDigit Wireless [facility] CenterStart: 07-02-2024 End: 72-73-8695Nztfely smoking status NHISNever smoked tobacco (finding) [facility] Hospitaltart: 49-25-9490Izc Assigned At [facility] HospitalTobacco smoking status NHISTobacco smoking consumption unknownBon [facility]sonOpt[facility]3 [facility] CenterStart: 08-29-2024 End: 82-77-1945Dcikmxo of Social functionBon [facility]sonCuralate [facility] HealthPhysical abuse DeniesRiverside [facility] Reed HospitalCuralate [facility] AkronDigit Wireless HealthStart: 77-26-0253Wxg assigned at birthNot on file [facility] CenterStart: 67-07-2043Xyyafat use and exposureSmokeless tobacco non-userJohn Randolph Medical CenterStart: 98-79-4703Xxqnmbyqk beverage intakeLifetime non-drinker (finding)[facility] CenterNEGATED: Highlighted rowStart: NINFHistory of tobacco usePassive smokerJohn Randolph Medical Center History of Present illness Narrative 10-24-2024 Note Date & LawwOefzMovftjiz95-32-2622 History of Present illness Narrative* Marla Mejia RN - 10/24/2024 10:41 AM EST Patient tolerating ice water and popsicle PO. Ambulated to restroom and voided spontaneously. OK todischarge per anesthesia so long as she tolerates PO pain medication prescribed on discharge. Family and patient informed of plan. * Corina Arias RN - 10/24/2024 7:28 AM EST Utility Aircrew[employer] reached out to patient. She is on her way. documented in this encounterJohn Randolph Medical Center Hospital Discharge instructions 09-23-2024 Note Date & KpiyHhejQkjpxhnm85-83-3310 Hospital Discharge instructions* Discharge Instructions* Angela Tabares APRN - CNP - 09/23/2024 12:10 AM EST ENT ~ Discharge Instructions You have undergone a TOTAL TONSILLECTOMY What to Expect During Recovery: - You will: - have a sore throat that can last up to 14 days - have bad breath that can last up to 14 days - You may: - snore - have ear pain and nasal congestion - have a low grade fever (100-101 F) for 1-3 days - have mild nausea/vomiting for 1-3 days - The area where your tonsils were removed will appear duran/ashen in color for 10-14 days after surgery - You may experience an increase in pain between days 5-10. This is typically when the scabs fall away from their throat. This may require more frequent pain medications during this time. The throat should appear pink (without bleeding) once the scabs fall off. When to Call ENT Nurse Line: - If you: - have a nosebleed that will not stop - show signs of dehydration such as dark colored urine or dry lips - have excessive vomiting that lasts more than 12 hours - have a fever higher than 101 F - If you have any questions about medications or your recovery When to Come to the Emergency Room or Call 911: - If you are bleeding from their mouth or throat (up to 14 days after surgery) - If you are having difficulty breathing - If you are not able to stay awake - If your become very sick and feel that you need immediate medical attention Return to Work and Activity Restrictions: - Home: quiet activities for 7 days after surgery - Work: may return in 7 days - Sports Participation or strenuous activity: no participation until 14 days after surgery - NO flying or long-distance travel away from home for 2 weeks Diet: - Regular diet. Foods that are crunchy may be uncomfortable but may be consumed if desired. Medications: Pain: - Tylenol (acetaminophen) & Motrin (ibuprofen) have been prescribed. - We recommend alternating pain medications so that you receive a dose every 3 hours for the first 2 days after surgery. For example: Take Tylenol at 8 am. Then 3 hours later administer Motrin at 11am. Then 3 hours later administer Tylenol at 2pm. Then 3 hours later administer Motrin at 5pm. After 2 days, you may administer the medications as needed. Tramadol, 50mg every 6 hours as needed for pain for up to 7 days - Common side effects of opioid medications are nausea, vomiting, and constipation. - Opioids may also cause sleepiness and slowed breathing. Slowed breathing (respiratory depression)is a serious side effect and may be life threatening. If you think that this is happening to you, call 911 immediately. - Opioid medicines can be addictive. They should be used only to control your pain. Do not share this medicine with others. Do not keep left over medicine. - As soon as you no longer need opioid pain medicine, you should discard the remainder. Prior to disposing, you should mix it in used coffee grounds or old rony litter. You may also return it to your pharmacy or to a shadow graph weight operator's office for disposal if they have a medication drop box. If these options are not available, the remaining opioid medication can be poured down the sink. - NEVER take more than the prescribed dose of your medication. - ALWAYS follow instructions on the label. - As needed: Saline [place] may be purchased uzme-doo-rfyzjkl for congestion and secretions in your nose. You can use 1-2 sprays or drops to each nostril as needed. Follow-up: You will be contacted by the ENT nurses following surgery to evaluate your recovery in approximately 4-6 weeks. If you have any questions, please call the numbers below Useful Numbers: ENT Nurse triage line [phone] option 3 (ENT-related questions or concerns, 8am-4pm, Thursday through Thursday) Main Office [phone] (to schedule routine appointments) After hours contact number [phone] (After 4pm Thursday through Thursday and weekends; ask to speakwith ENT provider secondary english teacher) documented in this encounterBon [facility] Evaluation note 10-26-2023 Note Date & XvgvGjybJkgarslv49-03-3318 Evaluation note* Encounter Date Diagnosis Assessment Notes Treatment Notes Treatment Clinical Notes Oct, Sore throat (ICD-10 - J02.9) Oct,cute sinusitis, recurrence not specified, unspecified location (ICD-10 - J01.90)Drink plenty fluids, get plenty of rest. Take the amoxicillin with clavulanate and prednisone as prescribed until gone. Use the fluticasone nasal spray until your symptoms improved. You may take Mucinex and/or Sudafed for congestion. Take Tylenol or Motrin for aches pains or fevers. Follow-up with your family physician if no improvement in 2 to 3 days [employer] Other Evaluation note Note Date & TypeNoteFacilityEvaluation noteNo assessment information available [facility] Work Phone: Evaluation note Note Date & TypeNoteFacilityEvaluation note* Diagnosis Peritonsillar abscess- Primary Obesity Obesity, unspecified documented in this encounter [facility] Access Information Management [facility] Evaluation note Note Date & TypeNoteFacilityEvaluation note* Diagnosis Recurrent peritonsillar abscess- Primary Post-op pain Other acute postoperative pain documented in this encounter [place] History general Narrative - Reported Note Date & TypeNoteFacilityHistory general Narrative - Reported* Type Description Date Medical History Primary insomnia Medical HistoryAttention deficit hyperactivity disorder (ADHD), unspecified ADHD typeSurgical HistoryPE tubesSurgical Historycyst removalHospitalization History see above [employer] Other Summary Purpose Family History No Family History Records FoundNo Family History Records FoundNo Family History Records FoundNo Family History Records Found Advance Directives No Advanced Directives Records Found Advance Directive Response Recorded Date/ Time Advance Directives No June 11:54am Date ActivatedDate VixygvcxsslRuhvwhnq08/11/2024 9:25 AMDate ActivatedDate BhhwfvkvsziAqjzqqft58/11/2024 9:25 AM08/30/2024 2:34 PM Chief Complaint and Reason for Visit Chief Complaint sore throat Additional Source Comments INFORMATION SOURCE (unrecogn ized section and content) DATE CREATED AUTHOR 11/14/2022 [facility] DATE CREATED AUTHOR AUTHOR'S ORGANIZ ATION 10/30/2024 [facility] DATE CREATED AUTHOR AUTHOR'S ORGANIZ ATION 01/23/2025 [facility] DATE CREATED AUTHOR AUTHOR'S ORGANIZ ATION 04/17/2025 [facility] REASON FOR VISIT (unrecogniz ed section and content) SpecialtyDiagnoses / ProceduresReferred By ContactReferred To Contact Diagnoses 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 [J36] Procedures [place] TONSILLECTOMY & ADENOIDECTOMY <AGE 12 TOTAL TONSILLECTOMY Manjit Frey MD [address] [address] [facility] [address] [place] [address] Referral IDStatusReasonStart DateExpiration DateVisits RequestedVisits [id number] Care Teams (unrecognized sec tion and content) Team Status: Active Member Role Status Dates PHYSICIAN NO FAMILY Primary Care Provider Active Team Status: Inactive Member Role Status Dates PHYSICIAN NO FAMILY Primary Care Provider Active Start: July 02, 2024 End: July 02, 2024Ki Arrington ProviderActiveStart: July 02, 2024 End: July 02, 2024Team MemberRelationshipSpecialtyStart DateEnd Date No, Pcp PCP - General07/04/24Team MemberRelationshipSpecialtyStart DateEnd Date No, Pcp PCP - General07/04/24 Goals (unrecognized section and content) Goals may be documented in a n alternate section Ordered Prescriptions (unrec ognized section and content) PrescriptionSigDispensedRefillsStart DateEnd Date amoxicillin-clavulanate (AUGMENTIN) 875-125 MG per tablet Take 1 tablet by mouth 2 times daily for 14 days 28 tablet rescriptionSigDispensedRefillsStart DateEnd Date traMADol (ULTRAM) 50 MG tablet Indications:Post-op painTake 1 tablet by mouth every 6 hours as needed for Pain for up to 7 days. Intended supply: 5 days. Take lowest dose possible to manage pain Max Daily Amount: 200 mg 20 tablet Scheduled Active and Recently Administ ered Medications (unrecognized section and content) Medication Order ampicillin-sulbactam (UNASYN) 3,000 mg in sodium chloride 0.9 % 100 mL IVPB (mini-bag) 3,000 mg, IntraVENous, EVERY 6 HOURS, First dose on Thu08/29/24 at 0945, Until Discontinued, Antimicrobial Indications: Skin and Soft Tissue Infection, Skin duration of therapy: 7 days * 1058 (New Bag - Provider: Michaela Jacobs RN - Comment: med not avail) * 1130 (Stopped - Provider: Michaela Jacobs RN) * 1656 (New Bag - Provider: Michaela Jacobs RN) * 1726 (Stopped - Provider: Michaela Jacobs RN) * 2200 (New Bag - Provider: Julianna Brown RN) * 2230 (Stopped - Provider: Julianna Brown RN) * 0355 (New Bag - Provider: Julianna Brown RN) * 0728 (Stopped - Provider: Julianna Brown RN) * 0820 (New Bag - Provider: Ray Mayer, PACO) * 0953 (Stopped - Provider: Ray Mayer RN) * 1545 (Due) * 2145 (Due) lidocaine-EPINEPHrine 1 %-1:888429 injection 20 mL (COMPLETED) 20 mL, IntraDERmal, ONCE, 1 dose, On Thu08/29/24 at 1145 * 1227 (Given - Provider: Michaela Jacobs RN - Comment: throat/Procedure) sodium chloride flush 0.9 % injection 5-40 mL 5-40 mL, IntraVENous, EVERY 12 HOURS SCHEDULED (2 times per day), First dose on Thu08/29/24 at 0945, Until Discontinued, For Line Patency: Peripheral IV = 5 mL; Midline or Central Line = 10 mL/lumen. If following IV push medication, administer flush at same rate as the IV push. Flush volume is determined by type of infusion therapy being given. For non-viscous solutions use: Peripheral IV = 5 mLMidline or Central Line = 10 mL/lumen For viscous solutions (i.e. blood components, parenteral nutrition, contrast media, or after obtaining blood sample) use: Peripheral IV = 10 mL Midline or Central Line = 20 mL/lumen * 0931 (Given - Provider: Michaela Jacobs RN) * 2201 (Given - Provider: Julianna Brown RN) * 0821 (Given - Provider: Ray Mayer, PACO) * 2100 (Due) Medication Order 0.9 % sodium chloride infusion IntraVENous, at 5-250 mL/hr, PRN, if patient receiving piggyback infusions and maintenance fluids are not ordered, Starting on Thu08/29/24 at 0925, For piggyback infusion, administer at same rate aspiggyback for a total of 25 mL. Enter 25 mL into dose field and piggyback rate into rate field of order. If piggyback is infusing at a rate less than 100 mL/hr, enter 25 mL into dose field and 100 mL/hr into rate field of order. * 0939 (New Bag - Provider: Michaela Jacobs RN) acetaminophen (TYLENOL) suppository 650 mg(Linked Group 1) 650 mg, Rectal, EVERY 6 HOURS PRN, Starting on Thu08/29/24 at 0925, Until Discontinued, Pain Mild (1-3), Fever, For temp greater than 100.4 F (38 C), Administer if oral route cannot be used. acetaminophen (TYLENOL) tablet 650 mg(Linked Group 1) 650 mg, Oral, EVERY 6 HOURS PRN, Starting on Thu08/29/24 at 0925, Until Discontinued, Pain Mild (1-3), Fever, For temp greater than 100.4 F (38 C), Maximum dose of acetaminophen is 4000 mg from all sources in 24 hours. magnesium sulfate 1000 mg in dextrose 5% 100 mL IVPB 1,000 mg, IntraVENous, at 100 mL/hr, Administer over 1 Hours, PRN, Other, Per IV Magnesium Replacement Protocol, Starting on Thu08/29/24 at 0925, Mg Lab Replacement Action 1.4-1.6 1 gram IVPB x 2 doses (2 gram Total) 1.0-1.3 1 gram IVPB x 4 doses (4 gram Total) <1.0 CALL PHYSICIAN and 1 gram IVPB x 4 doses (4 gram Total) Infuse at 1 gram/hr Repeat Mag level next AM Protocol not for use in Patients with CrCl<30ml/min morphine (PF) injection 2 mg 2 mg, IntraVENous, EVERY 4 HOURS PRN, Starting on Thu08/29/24 at 1221, Until Discontinued, Pain Moderate (4-6), Pain Severe (7-10), If oral and IV narcotics ordered, use oral first and only use IV if oral is ineffective or cannot take oral. Do Not give oral and IV within 1 hour of each other unless specifically ordered. * 1239 (Given - Provider: Michaela Jacobs, RN) * 1656 (Given - Provider: Michaela Jacobs, PACO) * 2201 (Given - Provider: Julianna Brown RN) ondansetron (ZOFRAN) injection 4 mg(Linked Group 2) 4 mg, IntraVENous, EVERY 6 HOURS PRN, Starting on Thu08/29/24 at 0925, Until Discontinued, Nausea,Vomiting, Administer if oral route cannot be used. * 0942 (Given - Provider: Michaela Jacobs RN) ondansetron (ZOFRAN-ODT) disintegrating tablet 4 mg(Linked Group 2) 4 mg, Oral, EVERY 8 HOURS PRN, Starting on Thu08/29/24 at 0925, Until Discontinued, Nausea, Vomiting * 0942 (See Alternative - Provider: Michaela Jacobs RN) polyethylene glycol (GLYCOLAX) packet 17 g 17 g, Oral, DAILY PRN, Starting on Thu08/29/24 at 0925, Until Discontinued, Constipation, First line therapy for constipation potassium bicarb-citric acid (EFFER-K) effervescent tablet 40 mEq(Linked Group 3) 40 mEq, Oral, PRN, Starting on Thu08/29/24 at 0925, Until Discontinued, Per Potassium Replacement Protocol, Administer as alternative if patient unable to tolerate oral tablet. K Lab Replacement Action 3.1 to 3.5 40 mEq ORAL x 1 Under 3.1 Refer to IV replacement protocol Recheck K level in AM. Protocol not for use in patients with CrCl less than 30 mL/min. Do not chew or crush. Dissolve flavoredtablets completely in 3 to 4 ounces of cold water; unflavored tablets may be dissolved in 3 to 4 ounces of cold juice. Patient to sip slowly over a 5 to 10 minute period. May further dilute if GI adverse effects occur. potassium chloride (KLOR-CON M) extended release tablet 40 mEq(Linked Group 3) 40 mEq, Oral, PRN, Starting on Thu08/29/24 at 0925, Until Discontinued, Potassium Replacement, Maygive alternative linked oral order (ordered as effervescent, packet, or liquid solution) if patientunable to tolerate tablet. K Lab Replacement Action 3.1 to 3.5 40 mEq ORAL x 1 Under 3.1 Refer to IV replacement protocol Recheck K level in AM. Protocol not for use in patients with CrCl less than 30 mL/min. Do not crush, chew, or suck on tablet. Tablet may also be broken in half and each half swallowed separately. potassium chloride 10 mEq/100 mL IVPB (Peripheral Line)(Linked Group 3) 10 mEq, IntraVENous, PRN, Starting on Thu08/29/24 at 0925, Until Discontinued, at 100 mL/hr, Potassium Replacement, K Lab Replacement Action 2.7-3.0 10 mEq IVPB x 6 doses (60 mEq Total) < 2.7 CALL PHYSICIAN and 10 mEq IVPB x 6 doses (60 mEq Total) Infuse at 10 mEq/hr Repeat Potassium lab 1 hourafter final administration. Not for use in patients with CrCl less than 30 mL/min. sodium chloride flush 0.9 % injection 10 mL 10 mL, IntraVENous, PRN, Starting on Thu08/29/24 at 0925, Until Discontinued, Line Care, After every IV line use Order Group 1: acetaminophen (TYLENOL) tablet 650 mgJump to med 650 mg, Oral, EVERY 6 HOURS PRN, Starting on Thu08/29/24 at 0925, Until Discontinued, Pain Mild (1-3), Fever, For temp greater than 100.4 F (38 C), Maximum dose of acetaminophen is 4000 mg from all sources in 24 hours. Or acetaminophen (TYLENOL) suppository 650 mgJump to med 650 mg, Rectal, EVERY 6 HOURS PRN, Starting on Thu08/29/24 at 0925, Until Discontinued, Pain Mild (1-3), Fever, For temp greater than 100.4 F (38 C), Administer if oral route cannot be used. Group 2: ondansetron (ZOFRAN-ODT) disintegrating tablet 4 mgJump to med 4 mg, Oral, EVERY 8 HOURS PRN, Starting on Thu08/29/24 at 0925, Until Discontinued, Nausea, Vomiting Or ondansetron (ZOFRAN) injection 4 mgJump to med 4 mg, IntraVENous, EVERY 6 HOURS PRN, Starting on Thu08/29/24 at 0925, Until Discontinued, Nausea,Vomiting, Administer if oral route cannot be used. Group 3: potassium chloride (KLOR-CON M) extended release tablet 40 mEqJump to med 40 mEq, Oral, PRN, Starting on Thu08/29/24 at 0925, Until Discontinued, Potassium Replacement, Maygive alternative linked oral order (ordered as effervescent, packet, or liquid solution) if patientunable to tolerate tablet. K Lab Replacement Action 3.1 to 3.5 40 mEq ORAL x 1 Under 3.1 Refer to IV replacement protocol Recheck K level in AM. Protocol not for use in patients with CrCl less than 30 mL/min. Do not crush, chew, or suck on tablet. Tablet may also be broken in half and each half swallowed separately. Or potassium bicarb-citric acid (EFFER-K) effervescent tablet 40 mEqJump to med 40 mEq, Oral, PRN, Starting on Thu08/29/24 at 0925, Until Discontinued, Per Potassium Replacement Protocol, Administer as alternative if patient unable to tolerate oral tablet. K Lab Replacement Action 3.1 to 3.5 40 mEq ORAL x 1 Under 3.1 Refer to IV replacement protocol Recheck K level in AM. Protocol not for use in patients with CrCl less than 30 mL/min. Do not chew or crush. Dissolve flavoredtablets completely in 3 to 4 ounces of cold water; unflavored tablets may be dissolved in 3 to 4 ounces of cold juice. Patient to sip slowly over a 5 to 10 minute period. May further dilute if GI adverse effects occur. Or potassium chloride 10 mEq/100 mL IVPB (Peripheral Line)Jump to med 10 mEq, IntraVENous, PRN, Starting on Thu08/29/24 at 0925, Until Discontinued, at 100 mL/hr, Potassium Replacement, K Lab Replacement Action 2.7-3.0 10 mEq IVPB x 6 doses (60 mEq Total) < 2.7 CALL PHYSICIAN and 10 mEq IVPB x 6 doses (60 mEq Total) Infuse at 10 mEq/hr Repeat Potassium lab 1 hourafter final administration. Not for use in patients with CrCl less than 30 mL/min. Medication Order/ scopolamine (TRANSDERM-SCOP) transdermal patch 1 patch 1 patch, TransDERmal, Administer over 72 Hours, EVERY 72 HOURS, First dose on Thu10/24/24 at 0930, delivers 1 mg over 3 days. Apply patch to hairless area behind the ear. * 0834 (Patch Applied - Provider: Corina Arias, PACO) sodium chloride flush 0.9 % injection 5-40 mL 5-40 mL, IntraVENous, EVERY 12 HOURS SCHEDULED (2 times per day), First dose on Thu10/24/24 at 1015,Until Discontinued, For Line Patency: Peripheral IV = 5 mL; Midline or Central Line = 10 mL/lumen. If following IV push medication, administer flush at same rate as the IV push. Flush volume is determined by type of infusion therapy being given. For non-viscous solutions use: Peripheral IV = 5 mL Midline or Central Line = 10 mL/lumen For viscous solutions (i.e. blood components, parenteral nutrition, contrast media, or after obtaining blood sample) use: Peripheral IV = 10 mL Midline or Central Line = 20 mL/lumen, PACU only * 1015 (Due) * 2100 (Due) traMADol (ULTRAM) tablet 50 mg (COMPLETED) 50 mg, Oral, ONCE, 1 dose, On Thu10/24/24 at 1045, PACU only * 1046 (Given - Provider: Marla Mejia RN) Medication Order/ 0.9 % sodium chloride infusion IntraVENous, at 5-250 mL/hr, PRN, if patient receiving piggyback infusions and maintenance fluids are not ordered OR KVO fluids to protect IV site / prevent frequent line interruptions/ long duration, Starting on Thu10/24/24 at 0949, For piggyback infusion, administer at same rate as piggyback for atotal of 25 mL. Enter 25 mL into dose field and piggyback rate into rate field of order. If piggyback is infusing at a rate less than 100 mL/hr, enter 25 mL into dose field and 100 mL/hr into rate field of order. For KVO fluids, enter rate of 20 mL/hr or less into rate field of order., PACU only hydrALAZINE (APRESOLINE) injection 10 mg(Linked Group 1) 10 mg, IntraVENous, EVERY 15 MIN PRN, 2 doses, Starting on Thu10/24/24 at 0949, Until Discontinued, for SBP greater than 180 mmHg for 2 consecutive measurements taken from different sites, If heart rate is greater than 60 bpm, hold hydralazine and use labetalol if ordered, otherwise contact provider. Inform provider if SBP is still greater than 180 mmHg 10 minutes after second antihypertensive dose is administered., PACU only HYDROmorphone (DILAUDID) injection 0.25 mg 0.25 mg, IntraVENous, EVERY 5 MIN PRN, 2 doses, Starting on Thu10/24/24 at 0949, Until Discontinued,Pain Moderate (4-6), For Phase I. If Phase II oral narcotics have been administered in the last 60 minutes, do not administer IV narcotics unless specifically approved by provider., PACU only HYDROmorphone (DILAUDID) injection 0.5 mg 0.5 mg, IntraVENous, EVERY 5 MIN PRN, 2 doses, Starting on Thu10/24/24 at 0949, Until Discontinued, Pain Severe (7-10), For Phase I. If Phase II oral narcotics have been administered in the last 60 minutes, do not administer IV narcotics unless specifically approved by provider., PACU only labetalol (NORMODYNE;TRANDATE) injection 10 mg(Linked Group 1) 10 mg, IntraVENous, EVERY 15 MIN PRN, 2 doses, Starting on Thu10/24/24 at 0949, Until Discontinued, High Blood Pressure, for SBP greater than 180 mmHg for 2 consecutive measurements taken from different sites., If heart rate is 60 bpm or less hold labetalol and use hydralazine if ordered, otherwise contact provider. Inform provider if SBP is still greater than 180 mmHg, 10 minutes after second antihypertensive dose is administered., PACU only naloxone 0.4 mg in 10 mL sodium chloride syringe IntraVENous, PRN, Opioid Reversal, Starting on Thu10/24/24 at 0949, PRN if respiratory rate is less than 6/min and patient is difficult to arouse then notify physician STAT. Mix 9 mL of sodium chloride 0.9% with 0.4 mg (1 mL) of naloxone (NARCAN) in 10 mL syringe. (Note: dilution is 0.04 mg/mL) Give0.08 mg (2 mL of special dilution), slow IV push, repeat up to 0.4 mg (10 mL) or until patient is responsive to physical stimulation and respiratory rate is equal to or greater than 6 breaths/min. Continue to observe, if no response within 3 minutes of administration of 0.4 mg (10 mL) total, repeatdose (0.4 mg as administered previously). Concentration 0.04 mg/mL, PACU only ondansetron (ZOFRAN) injection 4 mg 4 mg, IntraVENous, ONCE PRN, 1 dose, Starting on Thu10/24/24 at 0949, Until Thu10/25/24 at 0949, Nausea, Initial antiemetic therapy., PACU only oxymetazoline (AFRIN) 0.05 % nasal spray (CANCELED) PRN, Starting on Thu10/24/24 at 0933, Until Thu10/24/24 at 0949, Intra-op * 0933 (Given - Provider: Manjit Frey MD - Comment: POURED TO BACK TABLE) sod chloride IRR soln 0.9 % irrigation (CANCELED) CONTINUOUS PRN, Starting on Thu10/24/24 at 0932, Intra-op * 0932 (New Bag - Provider: Manjit Frey MD - Comment: POURED TO BACK TABLE) sodium chloride flush 0.9 % injection 5-40 mL 5-40 mL, IntraVENous, PRN, Starting on Thu10/24/24 at 0949, Until Discontinued, Line Care, After every IV line use, For Line Patency: Peripheral IV = 5 mL; Midline or Central Line = 10 mL/lumen. If following IV push medication, administer flush at same rate as the IV push. Flush volume is determinedby type of infusion therapy being given. For non-viscous solutions use: Peripheral IV = 5 mL Midline or Central Line = 10 mL/lumen For viscous solutions (i.e. blood components, parenteral nutrition, contrast media, or after obtaining blood sample) use: Peripheral IV = 10 mL Midline or Central Line = 20 mL/lumen, PACU only Order Group 1: labetalol (NORMODYNE;TRANDATE) injection 10 mgJump to med 10 mg, IntraVENous, EVERY 15 MIN PRN, 2 doses, Starting on Thu10/24/24 at 0949, Until Discontinued, High Blood Pressure, for SBP greater than 180 mmHg for 2 consecutive measurements taken from different sites., If heart rate is 60 bpm or less hold labetalol and use hydralazine if ordered, otherwise contact provider. Inform provider if SBP is still greater than 180 mmHg, 10 minutes after second antihypertensive dose is administered., PACU only Or hydrALAZINE (APRESOLINE) injection 10 mgJump to med 10 mg, IntraVENous, EVERY 15 MIN PRN, 2 doses, Starting on Thu10/24/24 at 0949, Until Discontinued, for SBP greater than 180 mmHg for 2 consecutive measurements taken from different sites, If heart rate is greater than 60 bpm, hold hydralazine and use labetalol if ordered, otherwise contact provider. Inform provider if SBP is still greater than 180 mmHg 10 minutes after second antihypertensive dose is administered., PACU only FOR RECORDS PERTAINING TO PATIENTS WHO ARE [...] BE BASED ON THE PRIMARY CLINICAL RECORDS. [employer] [facility]. provides no warranty or guarantee of the accuracy or completeness of information in this document.
[2025-08-20 09:18] LABS: Glucose Urine UA NEGATIVE (NEGATIVE)
[2025-08-20 09:26] LABS: Cast Seen? NONE SEEN #/LPF (NONE SEEN); Crystals Seen? None Seen #/HPF (None Seen); Urine Culture Indicated YES-FRMC
== END 2025-08-20 10:13 | disposition home or self-care (01) ==
PROVIDERS: Emergency Provider Emergency Medicine
DX: O23.41 Unspecified infection of urinary tract in pregnancy, first trimester (principal); N39.0 Urinary tract infection, site not specified; Z3A.08 8 weeks gestation of pregnancy
CPT/HCPCS: 81001; 84703; 87086; 99283

== ENCOUNTER 2025-09-21 15:39 | Outpatient (OUT) | payer BC, SELFPAY ==
--- OUTSIDE RECORDS SUMMARY | 2025-09-12 08:02 | XMS_ITS | CCD ---
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 MDHemoglobin (Bld) [Mass/Vol]12.8 g/dLNormal 11.9-15.1MKentfield HospitalComment on above:Performed By: #### CDP, BMP #### [address] [address] Bake Room Worker: Dionicio Bojorquez MDImmature granulocytes/100 WBC (Bld)0 %Normal0 [facility] ShawComment on above:Performed By: #### CDP, BMP #### [address] [place] [address] Bake Room Worker: Ruddy Mayomphocytes (Bld) [#/Vol]1.50 10*3/uLNormal 1.20-5.20[facility] ShawComment on above:Performed By: #### CDP, BMP #### [address] [address] Bake Room Worker: Janice Mayohocytes/100 WBC (Bld)12 %Nex27-58UlrofSelect Medical Cleveland Clinic Rehabilitation Hospital, Edwin ShawComment on above:Performed By: #### AMELIE, BMP #### [place] [address] Bake Room Worker: THANH MayoCH (RBC) [Entitic mass]28.5 wqUuvbkq80.2-33.5 [facility] ShawComment on above:Performed By: #### AMELIE, BMP #### [place] [address] Bake Room Worker: THANH MayoCHC (RBC) [Mass/Vol]33.8 g/sWJbuqll73.4-34.8 [facility] ShawComment on above:Performed By: #### AMELIE, BMP #### [place] [address] Bake Room Worker: THANH MayoCV (RBC) [Entitic vol]84.4 gPOxpmhq28.6-102.9 [facility] ShawComment on above:Performed By: #### CDP, BMP #### [place] [address] Bake Room Worker: THANH Mayoonocytes (Bld) [#/Vol]0.38 10*3/uLNormal 0.10-1.40[facility] ShawComment on above:Performed By: #### CDP, BMP #### [address] [place] [address] Bake Room Worker: THANH Mayoonocytes/100 WBC (Bld)3 %Normal2-8[facility] ShawComment on above:Performed By: #### CDP, BMP #### [address] [address] Bake Room Worker: Dionicio Bojorquez MDNeutrophil (Seg)85 %Hznv61-31PtaokSelect Medical Cleveland Clinic Rehabilitation Hospital, Edwin ShawComment on above:Performed By: #### CDP, BMP #### [address] [address] Bake Room Worker: Dionicio Bojorquez MDNRBC Automated0.0 per 100 WBCNormal0.0[facility] ShawComment on above:Performed By: #### CDP, BMP #### [address] [address] Bake Room Worker: Brooks Mayotelet mean volume (Bld) [Entitic vol]10.3 fL Normal8.1-13.5[facility] ShawComment on above:Performed By: #### CDP, BMP #### [address] [address] Bake Room Worker: FRANCISCA Mayolatelets (Bld) [#/Vol]248 10*3/yWHubjut259-702 [facility] ShawComment on above:Performed By: #### CDP, BMP #### [address] [address] Bake Room Worker: Dionicio Bojorquez MDRBC (Bld) [#/Vol]4.49 10*6/uLNormal3.95-5.11 [facility] ShawComment on above:Performed By: #### CDP, BMP #### [address] [address] Bake Room Worker: GLEN Mayo (Bld) [#/Vol]12.1 10*3/uLNormal4.5-13.5[facility] ShawComment on above:Performed By: #### RICHARD KINSEY #### [facility] [address] [place] [address] Bake Room Worker: Lashonda Mayo Panel InformationOrdered By: Radha Ortega on 29-54-5068Gzcrk Strep (POC)[facility] HospitalCOVID + FLU Quick Testingon [id number]-CoV-2 (COVID-19) RNA OSCAR+probe Ql (Unsp spec)Negative [facility] [employer] Other COVID + FLU Quick TestingNegativeSwedish Medical Center [facility] Other Quick Strepon 10-26-2023S. pyogenes Org specific cx Ql (Throat)NegativeSwedish Medical Center [facility] Other Quick StrepNoFirst [facility] [employer] Other CARDIAC MATIAS ADMITon [id number] [Catalytic activity/Vol]200 U/LCritically ktbq85-636WnqMount St. Mary HospitalComment on above: Performed By: #### RICHARD, CMADM #### [facility] [address] [place] [address] Dr. Alex Savage.MB [Mass/Vol]1.00 ng/mLNormal<=3.60[facility] Comment on above:Performed By: #### RICHARD, CMADM #### [facility] [address] [address] [address] Alex Valenzuela<4.4Cmxfrt6.0-51.3The [facility] HospitalComment on above: Result Comment: CUT-OFF POINTS HAVE BEEN ESTABLISHED BASED ON THE FOURTH UNIVERSAL DEFINITIONS OF MYOCARDIAL INFARCTION. THE UPPER REFERENCE LIMIT (URL) OF TROPONIN, DEFINED THE 99TH PERCENTILE OF cTnI DISTRIBUTION IN A REFERENCE POPULATION, HAS BEEN CONFIRMED THE DECISION THRESHOLD FOR OR DIAGNOSIS.Performed By: #### RICHARD, CMADM #### [facility] [address] [address] [address] Alex NamMYO37 ng/mLNormal9-82The [facility] on above: Performed By: #### BMP, CMADM #### [facility] [address] [address] [address] Alex Barber AUTO DIFFon [id number] #0.0 103/ulNormal0.0-0.1The [facility] HospitalComment on above:Performed By: #### CBC #### [facility] [address] [address] [address] Alex NamBasophils/100 WBC (Bld)0.4 %Normal0.2-2.0The [facility] Comment on above:Performed By: #### CBC #### [facility] [address] [place] [address] Dr. Alex Stacy #0.1 103/ulNormal0.0-0.7The [facility] HospitalComment on above: Performed By: #### CBC #### [facility] [address] [address] [address] Alex Nicoleosinophils/100 WBC (Bld)0.5 %Critically low0.9-7.0The [facility] on above:Performed By: #### CBC #### [facility] [address] [place] [address] Dr. Alex Nicolerythrocyte distribution width (RBC) [Ratio]12.9 %Lvbkvm56.0-15.0 The [facility] HospitalComment on above:Performed By: #### CBC #### [facility] [address] [place] [address] Dr. Alex NamHematocrit (Bld) [Volume fraction]43.5 %Imeyeh40.0-48.0The [facility] on above:Performed By: #### CBC #### [facility] [address] [place] [address] Dr. Alex NamHemoglobin (Bld) [Mass/Vol]13.6 g/sYOzakvd85.0-16.0The [facility] Hospitalment on above:Performed By: #### CBC #### [facility] [address] [address] [address] Alex Haji #0.03 10e3/ulNormal0.00-0.03The [facility] on above:Performed By: #### CBC #### [facility] [address] [place] [address] Dr. Alex Haji %0.3 %Normal0.0-0.5The [facility] HospitalComment on above: Performed By: #### CBC #### [facility] [address] [place] [address] Dr. Alex Gipson #3.7 103/ulNormal1.2-3.8The [facility] HospitalComselect specialty hospital-[facility] on above:Performed By: #### CBC #### [facility] [address] [place] [address] Dr. Alex Swartzhocytes/100 WBC (Bld)37.8 %Tgyblx61.5-60.0The [facility] on above:Performed By: #### CBC #### [facility] [address] [place] [address] Dr. Alex ReardonUAL DIFF REQNONormalThe [facility] HospitalComment on above: Performed By: #### CBC #### [facility] [address] [place] [address] Dr. Alex Benito (RBC) [Entitic mass]28.5 ecIqmphn31.7-34.0The [facility] HospitalComment on above:Performed By: #### CBC #### [facility] [address] [place] [address] Dr. Alex Benito (RBC) [Mass/Vol]31.3 g/sFFdfpnr04.9-35.2The [facility] HospitalComment on above:Performed By: #### CBC #### [facility] [address] [place] [address] Dr. Alex Benito (RBC) [Entitic vol]91.2 pYKnyaqh53.1-95.6The [facility] HospitalComment on above:Performed By: #### CBC #### [facility] [address] [address] [address] Alex Javed #0.9 103/ulCritically high0.3-0.8The [facility] Comment on above:Performed By: #### CBC #### [facility] [address] [address] [address] Alex Denisocytes/100 WBC (Bld)8.9 %Normal1.7-12.0The [facility] Comment on above:Performed By: #### CBC #### [facility] [address] [place] [address] Dr. Alex Foreman #5.1 103/ulNormal1.4-6.5The [facility] HospitalComment on above:Performed By: #### CBC #### [facility] [address] [place] [address] Dr. Alex Anayautrophils/100 WBC (Bld)52.1 %Tqchap31.0-75.0The [facility] HospitalComment on above:Performed By: #### CBC #### [facility] [address] [place] [address] Dr. Alex Gallegos mean volume (Bld) [Entitic vol]10.2 fLNormal9.5-13.5The [facility] HospitalComment on above:Performed By: #### CBC #### [facility] [address] [place] [address] Dr. Alex NamPLT288 103/qrXlusmh984-552Iey [facility] HospitalComment on above: Performed By: #### CBC #### [facility] [address] [place] [address] Dr. Alex NamRBC4.77 106/ulNormal3.40-5.30The [facility] HospitalComment on above:Performed By: #### CBC #### [facility] [address] [place] [address] Dr. Alex NamWBC9.8 103/ulNormal4.0-11.0The [facility] HospitalComment on above: Performed By: #### CBC #### [facility] [address] [place], [place] [address] Dr. Alex Macario-19 PCR ([facility])on 72-91-7106HUSA-CoV-2 (COVID-19) RNA OSCAR+probe Ql (Unsp spec)Not detectedNormalNOT DETECTEDMount St. Mary Hospital Comment on above:Result Comment: This test is not yet approved or cleared by the [place] FDA. When there are no FDA-approved or cleared tests available, and other criteria are met, FDA can make tests available under an emergency access mechanism called an Emergency Use Authorization (EUA). The EUA for this test is supported by the Logistics System Engineer of Health and Human Service's (HHS's) declaration [...] consistent with SARS-CoV-2.Performed By: #### DDIM #### [facility] [address] [place], [place] [address] Dr. Alex Garrido-DIMERon 61-33-0544E-DIMER<0.19Normal<=0.59[facility] Comment on above:Performed By: #### DDIM #### [facility] [address] [place], [place] [address] Dr. Alex Garrido-DIMER COMMENTSSEE BELOWNormalThSouthwest General Health CenterComment on above:Result Comment: Increases in D-Dimer concentration [...] generalized hospitalization. Performed By: #### DDIM #### [facility] [address] [place] [address] Dr. Alex Buenrostro AND B AGon 33-91-7692TACPIOPNFMDSSCentervilleComment on above:Result Comment: Negative for Flu A protein angiten. Infection due to Flu A cannot be ruled out. FluA angiten in the sample may be below the detection limit of the test.Performed By: #### DDIM #### [facility] [address] [place] [address] Dr. Alex GuerinNEGJOSÉ MIGUEL [facility]itan HospitalComment on above: Result Comment: Negative for Flu B protein antigen. Infection due to Flu B cannot be ruled out. FluB antigen in the sample may be below the detection limit of the test.Performed By: #### DDIM #### [facility] [address] [place] [address] Dr. Alex Buenrostro AGNegativeNormalNEGATIVE SEE COMMENTThe [facility] HospitalComment on above:Performed By: #### DDIM #### [facility] [address] [place] [address] Dr. Alex Cruz AGNegativeNormalNEGATIVE SEE COMMENTThe [facility] HospitalComment on above:Performed By: #### DDIM #### [facility] [address] [place] [address] Dr. Alex GaoANCY URon [id number], QUALNegativeNormalNEGATIVEThe [facility] HospitalComment on above:Performed By: #### PREGU #### [facility] [address] [place] [address] Dr. Alex Odom CHEM 8 (BAS METB)on [id number] [facility] Comment on above:Performed By: #### BMP, CMADM #### [facility] [address] [place] [address] Dr. Yilan ChangAnion gap [Moles/Vol]11.6 mmol/LNormalMount St. Mary Hospital Comment on above:Performed By: #### BMP, CMADM #### [facility] [address] [address] [address] Alex NamCalcium [Mass/Vol]9.9 mg/dLNormal8.5-10.1The [facility] Comment on above:Performed By: #### BMP, CMADM #### [facility] [address] [address] [address] Alex NamChloride [Moles/Vol]103 mmol/NJjuxsb31-092Fko [facility] Comment on above:Performed By: #### BMP, CMADM #### [facility] [address] [place] [address] Dr. Alex NamCO2 [Moles/Vol]29.2 mmol/TQrcdmq96.0-32.0[facility] Comment on above:Performed By: #### BMP, CMADM #### [facility] [address] [place] [address] Dr. Alex NamCreatinine [Mass/Vol]0.94 mg/dLNormal0.55-1.02The [facility] HospitalComment on above:Performed By: #### RICHARD, CMADM #### [facility] [address] [place] [address] Dr. Alex NicoleGFR-AF AMERICANNormal>=60The [facility] HospitalComment on above: Performed By: #### BMP, CMADM #### [facility] [address] [place] [address] Dr. Alex NicoleGFR-NON AF AMERICANNormal>=60The [facility] HospitalComment on above:Performed By: #### BMP, CMADM #### [facility] [address] [place] [address] Dr. Alex NamGlucose [Mass/Vol]95 mg/iTEmpcqn16-748JbpMount St. Mary Hospital Comment on above:Performed By: #### BMP, CMADM #### [facility] [address] [place] [address] Dr. Alex NamPotassium [Moles/Vol]3.8 mmol/LNormal3.5-5.1[facility] Comment on above:Performed By: #### BMP, CMADM #### [facility] [address] [address] [address] Alex NamSodium [Moles/Vol]140 mmol/VVesklc718-796WbvMount St. Mary Hospital Comment on above:Performed By: #### BMP, CMADM #### [facility] [address] [address] [address] Alex aNmUrea nitrogen [Mass/Vol]18.0 mg/dLNormal6.4-19.3TKettering Health Greene MemorialComment on above:Performed By: #### BMP, CMADM #### [facility] [address] [place] [address] Dr. Alex Kirkland nitrogen/Creatinine [Mass ratio]19.1 mg/mgNoPaulding County HospitalComment on above:Performed By: #### RICHARD, CMADM #### [facility] [address] [place] [address] Dr. Alex NamXR CHEST 1 Von [id number] CHEST 1 VEXAMINATION: XR CHEST 1 V HISTORY: Shortness of breath COMPARISON: None available. TECHNIQUE: Portable chest FINDINGS: The lung parenchyma is free of consolidation or infiltrate. No pneumothorax or pleural effusion. The cardiac, mediastinal and hilar contours are normal. The visualized osseous structures exhibit no gross abnormality. IMPRESSION: No acute cardiopulmonary abnormality. Electronically authenticated by: CHRIS WONG Date: 2022-11-12 22:43NoPaulding County HospitalCULTURE URINEon [id number] URINEIsolate 1 Escherichia coli >100,000 cfu/mL of [...] Nitrofurantoin <=16 S F Trimethoprim/Sulfamethoxazole <=[address] Mary HospitalComment on above:Performed By: #### URCX #### [facility] [address] [place] [address] Dr. Alex Watson URINE PROFILEon [id number] Ql (U)NegativeNormal NEGATIVEMount St. Mary HospitalComment on above:Performed By: #### UMICRO, ERUR, PREGU #### [facility] [address] [place] [address] Dr. Alex NamClarity (U)CLEARNormalCLEARMount St. Mary HospitalComment on above: Performed By: #### UMICRO, ERUR, PREGU #### [facility] [address] [place] [address] Dr. Alex Aragonlor (U)YELLOWNormalYELLOWMount St. Mary HospitalComment on above: Performed By: #### UMICRO, ERUR, PREGU #### [facility] [address] [place] [address] Dr. Alex Vang micrscopic examination will be performed if indicated. NormalMount St. Mary HospitalComment on above:Performed By: #### UMICRO, ERUR, PREGU #### [facility] [address] [place] [address] Dr. Alex NamGlucose Ql (U)NegativeNormalNEGATIVEMount St. Mary HospitalComment on above:Performed By: #### UMICRO, ERUR, PREGU #### [facility] [address] [place] [address] Dr. Alex NamHemoglobin Ql (U)NegativeNormalNEGATIVEWood County Hospital on above:Performed By: #### UMICRO, ERUR, PREGU #### [facility] [address] [place] [address] Dr. Alex NamKetones Ql (U)NegativeNormalNEGATIVEMount St. Mary HospitalComment on above:Performed By: #### UMICRO, ERUR, PREGU #### [facility] [address] [address] [address] Alex NamLEUKOCYTESNegativeNormalNEGATIVEThe [facility] HospitalComment on above:Performed By: #### UMICRO, ERUR, PREGU #### [facility] [address] [address] [address] Alex Adkinstrite Ql (U)PositiveAbnormalNEGATIVEThe [facility] Comment on above:Performed By: #### UMICRO, ERUR, PREGU #### [facility] [address] [address] [address] Alex NampH (U)7.5 [pH]Normal5-9The [facility] HospitalComment on above: Performed By: #### UMICRO, ERUR, PREGU #### [facility] [address] [place] [address] Dr. Alex NamSPEC GRAVITY1.370Eurapn8.005-<=1.025The [facility] HospitalComment on above:Performed By: #### UMICRO, ERUR, PREGU #### [facility] [address] [address] [address] Alex NamUA PROTEINNegativeNormalNEGATIVE/ TRACEThe [facility] Comment on above:Performed By: #### UMICRO, ERUR, PREGU #### [facility] [address] [place] [address] Dr. Alex Salcido MICRO INDINDICATEDNormalThe [facility] HospitalComment on above: Performed By: #### UMICRO, ERUR, PREGU #### [facility] [address] [address] [address] Alex Desaibilinogen Qn (U)1.0 {Colin'U}/dLNormal0.2 - 1.0The [facility] HospitalComment on above:Performed By: #### UMICRO, ERUR, PREGU #### [facility] [address] [place] [address] Dr. Alex NamPREGNANCY URon [id number], QUALNegativeNormalNEGATIVEThe [facility] HospitalComment on above:Performed By: #### UMICRO, ERUR, PREGU #### [facility] [address] [address] [address] Alex Hamlin MICROSCOPIC ONLYon [id number]Q SEEN The [facility] HospitalComment on above:Performed By: #### UMICRO, ERUR, PREGU #### [facility] [address] [address] [address] Alex Gary identified Cx Nom (U)INDICATEDNoalThe [facility] HospitalComment on above:Performed By: #### UMICRO, ERUR, PREGU #### [facility] [address] [place] [address] Dr. Alex Valencia SEENNormalNONE SEENMount St. Mary HospitalComment on above:Performed By: #### UMICRO, ERUR, PREGU #### [facility] [address] [place] [address] Dr. Alex Christieystals LM Nom (Urine sed)NONE SEENNormalNONE SEENThe [facility] HospitalComselect [facility] on above:Performed By: #### UMICRO, ERUR, PREGU #### [facility] [address] [place] [address] Dr. Johnson ChangEpithelial cells LM Ql (Urine sed)FEWAbnormalNONE SEEN /RAREThe [facility] HospitalComselect specialty hospital-[facility] on above:Performed By: #### UMICRO, ERUR, PREGU #### [facility] [address] [place] [address] Dr. Alex MoranUSTRACEAbnormalNONE SEENMount St. Mary HospitalComselect specialty hospital-[facility] on above:Performed By: #### UMICRO, ERUR, PREGU #### [facility] [address] [place] [address] Dr. Alex Hugo SEENAbnormal0-2The [facility] HospitalComment on above: Performed By: #### UMICRO, ERUR, PREGU #### [facility] [address] [address] [address] Alex NamWBC5-10AbnormalNONE SEENThe [facility] HospitalComment on above: Performed By: #### TANISHA JIMENEZ PREGU #### [facility] [address] [address] [address] Alex Nam Vital Signs Date TimeVital SignValuePerforming ObennjrdyPcmjhexm74-18-3111 10:23-0500Body puijos429.05 [facility]2025 10:23-0500Diastolic blood neegxwnh12 mm[Hg][facility]11-07-2025 10:23-0500Systolic blood drvdoiwy749 mm[Hg][facility]01-06-2025 11:00-0500Body temperature 97.9 [degF]Manjit Frey MD Work Phone: [phone] [facility]01-06-2025 11:00-0500Diastolic blood wlrnclay24 mm[Hg]Manjit Frey MD Work Phone: [facility]01-06-2025 11:00-0500Heart rate90 /minManjit Frey MD Work Phone: [facility]01-06-2025 11:00-0500 Respiratory rate16 /minManjit Frey MD Work Phone: [phone] [facility]01-06-2025 11:00-4667WrI5% (BldA) [Mass fraction]99 %Manjit Frey MD Work Phone: [facility]01-06-2025 11:00-0500Systolic blood eeylwnbw916 mm[Hg]Manjit Frey MD Work Phone: [facility]01-06-2025 07:53-0500Body zygpzf067.3 Leny Frey MD Work Phone: [phone]- [facility]01-06-2025 07:53-0500Body mass index (BMI) [Ratio]28.06 kg/a4HuazxmrManjit Frey MD Work Phone: [facility] CenterLetsdecco [facility] H[phone] 07:53-0500Body gykdeg04.18 kgManjit Frey MD Work Phone: [employer] RubyLetsdecco [facility] H[phone] 07:22-0500Body hirapvqzvwa08.7 [degF]Angelica Arora I, DO Work Phone: B[facility] CenterLetsdecco [facility] H[phone] 07:22-0500Diastolic blood uuvuxttu54 mm[Hg]Angelica Arora I, DO Work Phone: [facility] CenterCodealike11-12-2024 07:22-0500Heart rate51 /minAngelica Arora I, DO Work Phone: [facility] CenterLetsdecco [facility] HospitalItsPlatonicTjsjgw07-39-0538 07:22-0500 Respiratory rate18 /minAngelica Arora I, DO Work Phone: [facility] CenterLetsdecco [facility] HospitalItsPlatonicQsicdn19-33-5370 07:22-9608HsM2% (BldA) [Mass fraction]99 %Angelica Arora I, DO Work Phone: [facility] CenterLetsdecco [facility] HospitalItsPlatonicKekkhs53-41-4017 07:22-0500Systolic blood uvtcgcuf137 mm[Hg]Angelica Arora I, DO Work Phone: [facility] CenterLetsdecco [facility] HospitalItsPlatonicChkvic72-68-4417 08:00-0500Body cmAngelica Arora I, DO Work Phone: [facility] CenterCode[facility]ike11-11-2024 08:00-0500Body mass index (BMI) [Ratio]30.11 kg/i6HbmfeinvAngelica Arora I, DO Work Phone: [employer]11-11-2024 08:00-0500Body hiznzf30.11 kgMoeusebio Arora I, DO Work Phone: [employer] [facility]09-14-2024 12:12-0400Body .48 cm[facility]09[facility]14-2024 12:12-0400Body mass index (BMI) [Percentile] Per age and sex84.7 %[facility] 07-02-2024 12:12-0400Body mass index (BMI) [Ratio]26.2 kg/m5UyutxpeuhMary [facility] Hospital09-14-2024 12:12-0400Body fxghvvcvuby74.2 [degF][facility]09-14-2024 12:12-0400Body morzoh99.09 kg[facility]09-14-2024 12:12-0400Diastolic blood nioummup32 mm[Hg][facility]09-14-2024 12:12-0400Heart anep925 /[facility]09-14-2024 12:12-0400Respiratory rate16 /[facility]09-14-2024 12:12-2855VsH7% (BldA) [Mass fraction]99 %[facility]09-14-2024 12:12-0400Systolic blood mm[Hg] [facility]01-08-2024 15:40-0500Body kowxak351.72 cmPdorianasif TilleyBonnie Other [employer] Other 01-08-2024 15:40-0500Body mass index (BMI) [Ratio] 36.18 kg/x8Ltjnue Bonnie Other [employer] Other 01-08-2024 15:40-0500Body irkxrqosxkq046 [degF]Mireille Bonnie Other [employer] Other 01-08-2024 15:40-0500Body pxucpq172.96 kgMireille Tilleymond Other [employer] Other 01-08-2024 15:40-0500Respiratory rate18 /minMireille Nicole Other [facility] [employer] Other 01-08-2024 15:40-7992FdB0% (BldA) [Mass fraction]98 % Mireille Nicole Other [facility] [employer] Other Encounters Encounter DateEncounter TypeCare ProviderFacilityStart: 08-25-2025 End: 26-59-5143gkrewfdbuuCsdqy Nurse Noms Bcp ObNOMS [place] OBGYNComment on above:GA: 7m7yAmcdb: 08-20-2025 End: 75-16-4459umyxnbndiaIrfj E Hay-LAB [facility] [place] HospStart: 08-20-2025 End: 53-37-0995Aulcunyj ReferredAba Hernandez DO-LAB [facility] HospStart: 04-16-2025 End: 93-92-8365Mdydovbjl department patient visitNO PCP NO PCPCleveland Clinic [facility] Hospitaltart: 10-24-2024 End: 43-42-9502tglxfsoqilEOWPBQU C [facility] Centertart: 10-24-2024 End: 37-97-5195Osvcunbptf hospital visit by physicianManjit Frey MD Work Phone: stvz ORComment on above:Post-op pain (Primary Dx); Recurrent peritonsillar abscessStart: 00-43-9332mrnozmbkafKGJRIPUBakari [facility] Sanitariumtart: 08-29-2024 End: 17-92-2334Jucoaivujg and management of inpatientMohammad Grantdionicioawilda DO Work Phone: stvz Observation UnitStart: 29-80-4680Riduikxtyr and management of inpatientSLANRE MusaHemet Global Medical Centertart: 07-02-2024 End: 46-21-3993xqjhskhhakEmohmuxqcMary [facility]an Hospital Work Phone: Start: 07-02-2024 End: 43-41-4442Ajuhxpc encounter procedureFirelands Physician Group-[facility] Suraj Work Phone: Start: 10-26-2023 End: 03-91-9927hqzpkbrvphXkesqc Dymond Other [place] [employer] Other Start: 58-00-9552Tbmgwt outpatient new 20 minutes Mireille NicoleFPG Urgent Care ClydeStart: 11-12-2022 End: 79-25-5525cvyexdcfcpRSDHKF DIABFacility:B3Ezfnh: 02-21-2022 End: 50-66-5785nhpgswqprdKX KANU Navarro REINECKFacility:O8Uqooe: 01-17-2022 End: 29-70-1857jbxihdmjqjQJ KANU Navarro REINECKFacility:H1 Procedures DateProcedureProcedure DetailPerforming ClinicianStart: 04-52-5559Akboj dip stick/tablet rgnt non-auto w/o micrscpCorey Bell DO Work Phone: Start: 89-89-7835Froiv test visual color cmprsn Mira Frey MD Work Phone: Start: 94-26-4471Hqn prsmptv pthgnc organism scrn w/colony estimJose Ovalle MD Work Phone: Start: 02-24-7617Pzmtx metabolic panel calcium total Mark Ovalle MD Work Phone: Start: 05-03-5990Yjtht Strep (POC) Plan of Treatment DateCare ActivityDetailAuthorStart: 86-81-7496YIsU/Tdap/Td vaccine (2 - Td or Tdap)DTaP/Tdap/Td vaccine (2 - Td or Tdap)[facility] CenterStart: 09-27-2025 End: 57-65-3138Cipmoem encounter bihrntoev66/10/2025 11:30 AM EST Routine NOMS Robyn OBGYGiovanna [address] [place] [address] [place] [address] Soto Luu, DO [address] [place] [address] [place] [address] DIANELYS [place] OBGYNStart: 08-25-2025 End: 59-00-6396YWH/RhABO/Rh Lab Routine Missed menses , unspecified gestational age ([facility]) Expected: 08/25/2025 (Approximate), Expires: 08/25/2026[facility] HealthcareComment on above:Expected: 08/25/2025 (Approximate), Expires: 08/25/2026Start: 08-25-2025 End: 62-65-3424Gmhpf type and Indirect antibody screen panel - BloodType and screen Lab Routine Missed menses , unspecified gestational age ([facility]) Expected: 08/25/2025 (Approximate), Expires: 08/25/2026[facility] Healthcare Comment on above:Expected: 08/25/2025 (Approximate), Expires: 08/25/2026Start: 08-25-2025 End: 86-54-0236Imihd of abuse panel - Urine by Screen methodRapid drug screen, urine Lab Routine , unspecified gestational age ([facility]) Encounter for supervision of normal first in first trimester ([facility]) Expected: 08/25/2025 (Approximate), Expires: 08/25/2026[facility] HealthcareComment on above: Expected: 08/25/2025 (Approximate), Expires: 08/25/2026Start: 74-95-0316Zjjfdnge identified in Urine by CultureCommunity Memorial Hospital Start: 30-44-0036Bfcgr [facility] Hospitaltart: 08-15-2025 End: 60-08-0335FE Pelvis transvaginalUS OB transvaginal Imaging Routine Missed menses Positive urine test [facility]) Expected: 08/15/2025, Expires: 11/15/2025[facility] Healthcare Work Phone: comment on above:Expected: 08/15/2025, Expires: 11/15/2025Start: 10-24-2024 End: 65-28-5937Wlfwyotmrwann & adenoidectomyTONSILLECTOMY ADENOIDECTOMY Recurrent peritonsillar abscess 10/24/2024 9:13 AM [facility] Hospitaltart: 70-12-3585XJPGQ-19 Vaccine ( season)COVID-19 Vaccine ( season)[facility]: 46-05-1782Lvalfglvm vaccinationFlu vaccine (#1)[facility]: 01-31-7166Rhqbooyrh B vaccine (1 of 3 - 19+ 3-dose series)Hepatitis B vaccine (1 of 3 - 19+ 3-dose series)[facility]: 03-01-3547Dweqzzdws C screeningHepatitis C screenBon [facility]: 14-83-7295Rkmuzccgw for Chlamydia trachomatisChlamydia/GC screenBon [facility]: 39-42-0853WDA vaccine (2 - 3-dose series)HPV vaccine (2 - 3-dose series)[facility]: 08-35-4934KWN screeningHIV screenBon [facility]: 54-26-3176Zljmhrrni vaccine (1 of 2 - 13+ 2-dose series)Varicella vaccine (1 of 2 - 13+ 2-dose series)[facility]: 89-06-8776Dimnqzuxnm Screen Depression ScreenBon [facility] CenterBacteria identified in Urine by Culture Urine culture Microbiology Routine Missed menses Ordered: 08/25/2025[facility] HealthcareComment on above:Ordered: 08/25/2025BC W Auto Differential panel - BloodCBC and differential Lab Routine Missed menses , unspecified gestational age ([facility]) Ordered: 08/25/2025[facility] HealthcareComment on above: Ordered: 08/25/2025ontinuous pulse oximetryPulse oximetry, continuous Respiratory Care Routine Every 4hr until discontinued starting 08/29/2024on [facility] CenterComment on above:Every 4hr until discontinued starting 08/29/2024 End: 98-15-9981Kqdxjcw, Anaerobic and AerobicBon [facility] Work Phone: comment on above:One Time for 1 Occurrences starting 08/29/2024 until 08/29/2024Hemoglobin A1c/Hemoglobin.total in BloodHemoglobin A1c Lab Routine Missed menses , unspecified gestational age ([facility]) Ordered: 08/25/2025[facility] HealthcareComment on above:Ordered: 08/25/2025Hepatitis B virus surface Ag [Presence] in Serum or Plasma by ImmunoassayHepatitis B surface antigen Lab Routine Missed menses , unspecified gestational age ([facility]) Ordered: 08/25/2025[facility] HealthcareComment on above:Ordered: 08/25/2025Hepatitis C virus Ab [Presence] in Serum or Plasma by Immunoassay Hepatitis C antibody Lab Routine Missed menses , unspecified gestational age ([facility]) Ordered: 08/25/2025[facility] HealthcareComment on above: Ordered: 08/25/2025HIV-1/HIV-2 antigen/antibody combination immunoassayHIV-1 and HIV-2 antibodies Lab Routine Missed menses , unspecified gestational age ([facility]) Ordered: 08/25/2025[facility] HealthcareComment on above:Ordered: 08/25/2025 End: 77-44-8669UWVCGLOR PACU OXYGEN THERAPY PROTOCOLInitiate PACU Oxygen Therapy Protocol Respiratory Care Routine Continuous until discontinued starting 10/24/2024 [employer] Phone: comment on above:Continuous until discontinued starting 10/24/2024Oxygen therapy [Minimum Data Set]Initiate Oxygen Therapy Protocol Respiratory Care Routine As Needed until discontinued starting 08/19 [employer] Phone: Comment on above:As Needed until discontinued starting 08/29/2024athology studySurgical Pathology Lab Routine Recurrent peritonsillar abscess Release Upon Ordering for 1 Occurrences starting 10/24/2024 [employer] Phone: Comment on above:Release Upon Ordering for 1 Occurrences starting 10/24/2024Reagin Ab [Presence] in Serum by RPRRPR Lab Routine Missed menses , unspecified gestational age ([facility]) Ordered: 08/25/2025[facility] HealthcareComment on above:Ordered: 08/25/2025Rubella antibody, IgGRubella antibody, IgG Lab Routine Missed menses , unspecified gestational age ([facility]) Ordered: 08/25/2025[facility] CenterComment on above: Ordered: 08/25/2025 End: 84-37-4818YKCPBNZG PATHOLOGY REPORTSURGICAL PATHOLOGY REPORT Lab Routine Once for 1 Occurrences starting 10/24/2024 until 10/24/2024on [facility] CenterComment on above:Once for 1 Occurrences starting 10/24/2024 until 10/24/2024US Pelvis transvaginalUS OB transvaginal Imaging Routine Missed menses Positive urine test ([facility]) 0:01 AM [facility] Vaginal pathogens panel - Vaginal fluid by OSCAR with probe detectionMary [facility]an Hospital Payers DatePayer CategoryPayerPolicy [id number] Cross Blue ShieldBC ..[id number] County General Hospital [id number] .[id number] .[id number] .[id number] 2.1.097087.3.57[id number] 2..840.1.187624.3.57[id number] 2.16.840.1.763025.3.57[id number] 2.0.1.445155.3.57[id number] 2.0.1.736621.3.57[id number] 2.0.1.653361.3.579.[id number] 2.0.1.068520.3.579.2.531 Social History DateTypeDetailFacilityUnknown if ever smokedNosaint francis hospital & [facility] services [employer] Other Start: 08-29-2024 End: 12-97-6936Iyc Assigned At BirthWellmont Health SystemLetsdecco [facility] HospitalStart: 04-24-2023 End: 49-63-6189Hsxzcke smoking status NHISNever smoked tobacco (finding) [facility] Hospitaltart: 56-58-3216Vbr Assigned At BirthFemale [facility] HospitalTobacco smoking status NHISTobacco smoking consumption unknownBon [facility] CenterStart: 08-29-2024 End: 37-22-5071Trorjyv of Social functionBon [facility] CenterStart: 85-63-4795Fsamqboi abuseDeniesBon [facility] Depaul Medical CenterStart: 43-05-2157Wzo assigned at birthNot on fileBon Secours Depaul Medical CenterStart: 59-70-6753Sxinurd use and exposureSmokeless tobacco non-userWellmont Health SystemLetsdecco [facility] HospitalStart: 10-24-2024 End: 82-90-3453Qcwetdssr beverage intakeLifetime non-drinker (finding)[facility] HealthSexFemale (finding)[facility] Hospitaltart: 82-79-2606GljlvjyvbBVGX HealthcareNEGATED: Highlighted rowStart: NINFHistory of tobacco usePassive smokerKelechi [facility] History of Present illness Narrative 08-25-2025 Note Date & NyioEyogDpprmllv82-05-8157 History of Present illness Narrative* Hillary BranchSHREYA - 08/25/2025 10:00 AM EST Reason for Appointment: Patient ID: Jess Padron is a 20 y.o. female who presents for Amenorrhea Patient presents today for a Nurse OB Intake appointment. Patient is 6w5d with a Estimated Date of Delivery: 04/15/26 OB History Para Term AB Living 1 SAB IAB Ectopic Multiple Live Births # Outcome Date GA Lbr Shady/2nd Weight Sex Type Anes PTL Lv 1 Current Current Medications: has a current medication list which includes the following prescription(s): ondansetron odt. Medical History: Active Ambulatory Problems Diagnosis Date Noted No Active Ambulatory Problems Resolved Ambulatory Problems Diagnosis Date Noted No Resolved Ambulatory Problems Past Medical History: Diagnosis Date Anxiety Bipolar disorder (HCC) No family history on file. Social History Tobacco Use Smoking status: Never Smokeless tobacco: Not on file Substance Use Topics Alcohol use: Never Drug use: Not on file Past Surgical History: Procedure Laterality Date CYST REMOVAL Right thigh Allergies Allergen Reactions Codeine Hives Other Reaction(s): Other (See Comments) Latex Hives Other Reaction(s): Unknown Reaction Vitals: Estimated body mass index is 25.1 kg/m as calculated from the following: Height as of 02/21/20: 5' 9 . Weight as of 02/21/20: 170 lb. BP: 122/74 Patient's last menstrual period was 06/25/2025. Assessment/Plan Diagnoses and all orders for this visit: Missed menses - US OB transvaginal; Future - Type and screen; Future - ABO/Rh; Future - CBC and differential - Hemoglobin A1c - RPR - Rubella antibody, IgG - Hepatitis B surface antigen - Hepatitis C antibody - HIV-1 and HIV-2 antibodies - Urine culture - POCT , urine manually resulted - POCT urinalysis dipstick manually resulted Positive urine test ([facility]) - OB transvaginal; Future Amenorrhea 6 weeks gestation of ([facility]) , unspecified gestational age ([facility]) - Type and screen; Future - ABO/Rh; Future - CBC and differential - Hemoglobin A1c - RPR - Rubella antibody, IgG - Hepatitis B surface antigen - Hepatitis C antibody - HIV-1 and HIV-2 antibodies - Rapid drug screen, urine; Future Encounter for supervision of normal first in first trimester ([facility]) - Rapid drug screen, urine; Future Nurse Note: Pt unsure of Matlock billion to one. Pt was advised if she desires to do Matlock to make sure labs are done together at [facility]. Pt was advised to have labs drawn at 9 weeks gestation. Pt is 6 weeks 5 days today. Follow Up: Patient is to have labs drawn at directed and return to office for initial OB appointment with provider. Patient may call office as needed with any concerns or questions. Nurse Visit Completed by: Hillary Branch MA documented in this encounterNOEx[facility]ior [facility] History of Present illness Narrative 10-24-2024 Note Date & YhcyYgueFhsgzpzz14-70-4230 History of Present illness Narrative* Marla Mejia RN - 10/24/2024 10:41 AM EST Patient tolerating ice water and popsicle PO. Ambulated to restroom and voided spontaneously. OK todischarge per anesthesia so long as she tolerates PO pain medication prescribed on discharge. Family and patient informed of plan. * Corina Arias RN - 10/24/2024 7:28 AM EST Box Lining Machine Operator reached out to patient. She is on her way. documented in this encounterBon [facility] Discharge instructions 09-23-2024 Note Date & CsgyIjvtHspxtvfn21-19-6426 Hospital Discharge instructions* Discharge Instructions* Angela Tabares DITCHING MACHINE ENGINEER - ANNIE - 09/23/2024 12:10 AM EST ENT ~ [...] it to your pharmacy or to a mattress finisher's office for disposal if they have a medication drop box. If these options are not available, the remaining opioid medication can be poured down the sink. - NEVER take more than the prescribed dose of your medication. - ALWAYS follow instructions on the label. - As needed: Saline [place] may be purchased ntgp-gmb-wqoxtch for congestion and secretions in your nose. You can use 1-2 sprays or drops to each nostril as needed. Follow-up: You will be contacted by the ENT nurses following surgery to evaluate your recovery in approximately 4-6 weeks. If you have any questions, please call the numbers below Useful Numbers: ENT Nurse triage line [phone] option 3 (ENT-related questions or concerns, 8am-4pm, Thursday through Thursday) Main Office [phone] (to schedule routine appointments) After hours contact number [phone] (After 4pm Thursday through Thursday and weekends; ask to speakwith ENT provider power plant operations manager) documented in this encounterBon [facility] Evaluation note 10-26-2023 Note Date & IhvyMvysEgbswlva03-20-7097 Evaluation note* Encounter Date Diagnosis Assessment Notes [...] no improvement in 2 to 3 days [employer] Other Evaluation note Note Date & TypeNoteFacilityEvaluation noteNo assessment information available [facility] Work Phone: Evaluation note Note Date & TypeNoteFacilityEvaluation note* Diagnosis Peritonsillar abscess- Primary Obesity Obesity, unspecified documented in this encounter [facility] note Note Date & TypeNoteFacilityEvaluation note* Diagnosis Recurrent peritonsillar abscess- Primary Post-op pain Other acute postoperative pain documented in this encounter [facility] note Note Date & TypeNoteFacilityEvaluation note* Diagnosis Missed menses Positive urine test ([facility]) Amenorrhea Absence of menstruation 6 weeks gestation of ([facility]) , unspecified gestational age ([facility]) Encounter for supervision of normal first in first trimester ([facility]) documented in this encounter [facility] History general Narrative - Reported Note Date & TypeNoteFacilityHistory general Narrative - Reported* Type Description Date Medical History Primary insomnia Medical HistoryAttention deficit hyperactivity disorder (ADHD), unspecified ADHD typeSurgical HistoryPE tubesSurgical Historycyst removalHospitalization History see above [employer] Other Reason for referral (narrative) Note Date & TypeNoteFacilityReason for referral (narrative)No reason for referral information availableMain Campus Medical Center Work Phone: Summary Purpose Family History No Family History Records FoundNo Family History Records FoundNo Family History Records FoundNo Family History Records FoundNo Family History Records FoundNo Family History Records Found Advance Directives No Advanced Directives Records Found Advance Directive Response Recorded Date/ Time Advance Directives No June 11:54am Date ActivatedDate FlnhjcwwdliUedgpydy32/11/2024 9:25 AMDate ActivatedDate ThpjiliicbrQdfqrzdz17/11/2024 9:25 AM08/30/2024 2:34 PM Advance Directive Response Recorded Date/ Time Advance Directives No June 10:54am Chief Complaint and Reason for Visit Chief Complaint sore throat Chief Complaint Admit Date Unknown August 20, 2025 9 :00am Additional Source Comments INFORMATION SOURCE (unrecogn ized section and content) DATE CREATED AUTHOR 11/14/2022 [facility] DATE CREATED AUTHOR AUTHOR'S ORGANIZ ATION 10/30/2024 [facility] DATE CREATED AUTHOR AUTHOR'S ORGANIZ ATION 01/23/2025 [facility] DATE CREATED AUTHOR AUTHOR'S ORGANIZ ATION 04/17/2025 [facility] DATE CREATED AUTHOR AUTHOR'S ORGANIZ ATION 08/23/2025 [facility] DATE CREATED AUTHOR AUTHOR'S ORGANIZ ATION 08/31/2025 [facility] EPIC REASON FOR VISIT (unrecogniz ed section and content) SpecialtyDiagnoses / ProceduresReferred By ContactReferred To Contact Diagnoses 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 [J36] Procedures [facility] TONSILLECTOMY & ADENOIDECTOMY <AGE 12 TOTAL TONSILLECTOMY Manjit Frey MD [address] [address] [facility] [address] [place] [address] Referral IDStatusReasonStart DateExpiration DateVisits RequestedVisits [id number] Care Teams (unrecognized sec tion and content) [...] DateEnd Date No, Pcp PCP - General07/04/24 Team Status: Inactive Member Role/Relationship Status Dates Aba Hernandez DO Attending Provider Active Start: August 20, 2025 End: August 20, 2025 Goals (unrecognized section and content) Goals may [...] Max Daily Amount: 200 mg 20 tablet / Scheduled Active and Recently Administ ered Medications (unrecognized section and content) Medication Order/ ampicillin-sulbactam (UNASYN) 3,000 mg in sodium chloride [...] * 0820 (New Bag - Provider: Ray Mayer RN) * 0953 (Stopped - Provider: Ray Mayer RN) * 1545 (Due) * 2145 (Due) lidocaine-EPINEPHrine 1 %-1:101094 injection 20 mL (COMPLETED) 20 mL, IntraDERmal, [...] RN) * 0821 (Given - Provider: Ray Mayer RN) * 2100 (Due) Medication Order/ 0.9 % sodium chloride infusion [...] ordered. * 1239 (Given - Provider: Michaela Jacosb, RN) * 1656 (Given - Provider: Michaela Jacobs, PACO) * 2201 (Given - Provider: Julianna Brown RN) ondansetron (ZOFRAN) injection 4 mg(Linked Group 2) 4 mg, IntraVENous, EVERY 6 HOURS PRN, Starting on Thu08/29/24 at 0925, Until Discontinued, Nausea,Vomiting, Administer if oral route cannot be used. * 0942 (Given - Provider: Michaela Jacobs, PACO) ondansetron (ZOFRAN-ODT) disintegrating tablet 4 mg(Linked Group [...] with CrCl less than 30 mL/min. Medication Order//03/2025 scopolamine (TRANSDERM-SCOP) transdermal patch 1 patch 1 [...] (Given - Provider: Marla Mejia RN) Medication Order501/501/03/2025 0.9 % sodium chloride infusion IntraVENous, at [...] BE BASED ON THE PRIMARY CLINICAL RECORDS. [employer] provides no warranty or guarantee of the accuracy or completeness of information in this document.
[2025-09-21 16:00] LABS: Hematocrit 37.9 % (36.0-48.0); Hemoglobin 12.9 g/dL (12.0-16.0); Immature Granulocytes Abs Auto 0.04 10^3/uL (0.00-0.03); Immature Granulocytes Pct Auto 0.4 % (0.0-0.5); Lymphocytes Absolute Auto 2.2 10^3/uL (1.2-3.8); Mean Corpuscular HGB Conc 34.0 g/dL (29.9-35.2); Mean Corpuscular Hemoglobin 29.1 pg (26.7-34.0); Mean Corpuscular Volume 85.4 fL (81.0-99.0); Platelet Count 238 10^3/uL (150-450); Red Blood Count 4.44 10^6/uL (4.20-5.40); White Blood Count 10.9 10^3/uL (4.0-11.0)
[2025-09-21 16:21] LABS: Cannabinoid Screen Urine NEGATIVE (NEGATIVE); Methamphetamines Screen Urine NEGATIVE (NEGATIVE); Tricyclic Antidepressant Urine NEGATIVE (NEGATIVE)
[2025-09-23 05:07] LABS: Rubella Antibodies, IgG 2.27 index (Immune >0.99)
[2025-09-23 13:08] LABS: Rapid Plasma Reagin, Quant Non Reactive titer (NonRea<1:1)
== END 2025-09-21 15:40 | disposition home or self-care (01) ==
LOC: LAB 15:39
PROVIDERS: Visit Provider Obstetrics & Gynecology
DX: Z34.01 Encounter for supervision of normal first pregnancy, first trimester (principal); N92.6 Irregular menstruation, unspecified
CPT/HCPCS: 36415; 80307; 83036; 85025; 86592; 86762; 86803; 86850; 86900; 86901; 87086; 87340; 87389

== ENCOUNTER 2025-09-29 16:45 | Emergency (ER) | payer BC, OTHER, SELFPAY ==
--- OUTSIDE RECORDS SUMMARY | 2025-09-21 19:33 | XMS_ITS | Continuity of Care Document ---
Author Organization [facility] Address [address] [place] [address] Phone Care Team Providers Care Field Services Analyst Name Role Phone Aba Hernandez DO Attending Provider [phone] Soto Luu DO Attending Provider [phone] Care Teams Visit Care Team Team Status: Inactive Member Role/Relationship Status Dates Aba Hernandez DO Attending Provider Active Start: August 20, 2025 End: August 20, 2025 Patient Care Team Team Status: Inactive Member Role/Relationship Status Dates Soto Luu DO Attending Provider Active Start : September 21, 2025 End: September 21, 2025 Chief Complaint and Reason for Visit Chief Complaint Admit Date Unknown August 20, 2025 9 :00am Allergies, Adverse Reactions, Alerts Allergen Type Severity Reaction Last Updated Verified Status codeine Allergy Unknown hives June 10:55am Yes Active latex Allergy Unknown Unknown Reaction Septembe 2023 10:55am Yes Active Social History Smoking Status Status Start Date End Date Date of Observa tion Never smoked tobacco (finding) July 02, 2024 11:51am Observation Status Observation Response Date of Response Legal Sex Female (finding) Sex Assigned At [facility] 2004 Problems Active Problems Problem Diagnosis/Recorded Date Onset Date Stat us Acute pharyngitis July 02, 2024 11:56am Unknown Active Medications Medication Status Dose Units Route Directions Qty Days Refills S tart Date Stop Date End Date Reason(s) Instructions Adherence Amoxicillin 500 mg capsule Active 500 MG PO Every 12 hours 20 10 0 S maki 2023 11:00pm Unknown Procedures Procedure Date Performed Status Urine Culture August 20, 2025 completed Urine Culture September 21, 2025 active Relevant Diagnostic Tests and/or Laboratory Data Microbiology Results Procedure Source Result Collection Date/Time Result Date/Time Result Comment Performing Site Urine Culture Urine 2 Days August 20, 2025 9:00am August 22, 2025 8:56am [facility] [id number] [address] [place] [id number] Advance Directives Advance Directive Response Recorded Date/ Time Advance Directives No June 10:54am Insurance Providers Guarantor Jess Padron Address [address] [facility] [id number] Info.Home Phone: Payer Group Member ID Coverage Type Subscriber Relationship to Subscriber Effective Date Expiration Date Vito CHRISTENSEN/CORBIN [id number] White Id: [id number] [address] [facility] [address] Home Phone: Email: [email or web address] Encounters Encounter Location(s) Arrival/Admit Date Discharge/Departure Date Discharge/Departure Disposition Provider(s) Departed Referred -[facility] August 20, 2025 9:00am August 20, 2025 9:01am Discharged to home care or self care (routine discharge) Aba Hernandez DO Departed Referred -[facility] September 21, 2025 3:40pm September 21, 2025 3:41pm Discharged to home care or self care (routine discharge) Soto Luu Plan of Treatment Future Tests Future scheduled test information is unavailable Pending Tests Test Name Ordered Date Scheduled Date Urine Culture September 21, 2025 3:40pm Future Visits Future appointment information is unavailable Future Procedures Procedure Name Ordered Date Scheduled Date Urine Culture September 21, 2025 9:01pm [facility] er 2024 3:40pm Future Medications Future medication information is unavailable Patient Instructions Patient instructions are unavailable
--- OUTSIDE RECORDS SUMMARY | 2025-09-27 11:30 | XMS_ITS | Encounter Summary ---
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 Name Role Phone Unavailable Primary Care Provider Unavailabl e Reason for Visit * ReasonCommentsRoutine Visit Encounter Details DateTypeDepartmentCare Team (Latest Contact Info)Hyiciovkejd68/10/2025 11:30 AM ESTRoutine [facility] [address] [place] [phone] Soto Luu DO [address] [place] [address] 11 weeks gestation of ([facility]); Short cervix affecting ([facility]); First trimester ([facility]); Nausea and vomiting in ([facility]) Social History Tobacco UseTypesPacks/DayYears UsedDateSmoking Tobacco: NeverAlcohol UseStandard Drinks/WeekCommentsNever0 (1 standard drink = 0.6 oz pure alcohol) Estimated Date of JszxfbwrZinhhxheMfe45/28/2026Based on UltrasoundSex and Gender InformationValueDate RecordedSex Assigned at BirthNot on fileLegal SexFemale 12/31/2022 7:15 PM EDTGender IdentityNot on fileSexual OrientationNot on file documented as of this encounter Last Filed Vital Signs Vital SignReadingTime TakenCommentsBlood Wqsiowue222/80111/28/2024 11:40 AM EST Pulse--Temperature--Respiratory Rate--Oxygen Saturation--Inhaled Oxygen Concentration--Soundj014 kg (230 lb 6.4 oz)09/27/2025 11:40 AM ESTHeight--Body Mass Index--documented in this encounter Progress Notes * Mojgan RuffinRUBY - 09/27/2025 11:30 AM EST Reason for Appointment: Patient ID: Jess Padron is a 20 y.o. female who presents for Routine Visit Patient presents today for Return OB appointment. MEDICATIONS Current Outpatient Medications Medication Instructions ondansetron ODT (ZOFRAN-ODT) 4 mg, Oral, Every 6 hours PRN promethazine (PHENERGAN) 12.5 mg, Oral, Every 6 hours PRN, Take 1 tablet by mouth every 6 hours as needed for nausea. ALLERGIES Allergies Allergen Reactions Codeine Hives Other Reaction(s): Other (See Comments) Latex Hives Other Reaction(s): Unknown Reaction PROBLEMS Active Ambulatory Problems Diagnosis Date Noted Short cervix affecting ([facility]) 08/31/2025 Resolved Ambulatory Problems Diagnosis Date Noted No Resolved Ambulatory Problems Past Medical History: Diagnosis Date Anxiety Bipolar disorder ([facility]) HISTORY PAST MEDICAL HISTORY SOCIAL HISTORY Past Medical History: Diagnosis Date Anxiety Bipolar disorder ([facility]) Social History Tobacco Use Smoking status: Never Smokeless tobacco: Not on file Substance Use Topics Alcohol use: Never Drug use: Not on file FAMILY HISTORY No family history on file. SURGICAL HISTORY Past Surgical History: Procedure Laterality Date CYST REMOVAL Right thigh REVIEW OF SYSTEMS Review of Systems: Review of Systems Constitutional: Negative. HENT: Negative. Eyes: Negative. Respiratory: Negative. Cardiovascular: Negative. Gastrointestinal: Negative. Genitourinary: Negative. Musculoskeletal: Negative. Skin: Negative. Neurological: Negative. All other systems reviewed and are negative. Hematological: Negative. Endocrine: Negative. Allergic/Immunologic: Negative. OBJECTIVE Objective: Physical Exam Constitutional: Appearance: Normal appearance. She is well-developed. Cardiovascular: Rate and Rhythm: Normal rate and regular rhythm. Pulmonary: Effort: Pulmonary effort is normal. Breath sounds: Normal breath sounds. Abdominal: General: Bowel sounds are normal. There is no distension. Palpations: Abdomen is soft. Tenderness: There is no abdominal tenderness. There is no guarding or rebound. Musculoskeletal: General: No swelling. Normal range of motion. Right lower leg: No edema. Left lower leg: No edema. Neurological: Mental Status: She is alert and oriented to person, place, and time. Skin: General: Skin is warm and dry. Psychiatric: Mood and Affect: Mood normal. Behavior: Behavior normal. Vitals and nursing note reviewed. Exam conducted with a certified physical therapist assistant present. Vitals: Estimated body mass index is 25.1 kg/m?? as calculated from the following: Height as of 02/21/20: 5' 9 . Weight as of 02/21/20: 170 lb. BP: 120/80 Patient's last menstrual period was 06/25/2025. Assessment/Plan ICD-10-CM 1. 11 weeks gestation of ([facility]) Z3A.11 POCT urinalysis dipstick manually resulted US OB transvaginal 2. Short cervix affecting ([facility]) O26.879 POCT urinalysis dipstick manually resulted US OB transvaginal 3. First trimester ([facility]) Z34.91 POCT urinalysis dipstick manually resulted US OB transvaginal 4. Nausea and vomiting in ([facility]) O21.9 promethazine (Phenergan) 12.5 MG tablet Assessment/Plan New OB: Patient presents today for 1st time obstetrics appointment with provider. Patient is currently 11w3d . Patients history has been reviewed in great detail including any potential risks. Patient stated she currently has no complaints. Expectations throughout regarding labs, ultrasounds, and appointments have been discussed with the patient in detail. It was reiterated that the patient is to drink 6-8 glasses of water a day, eat 6 small meals a day, do not consume raw or undercooked meat, and stay away from [facility]. Patient has been consulted regarding any further do's and don'tsof . Patient voiced understanding and all questions and concerns were answered. Orders Placed This Encounter Procedures US OB transvaginal POCT urinalysis dipstick manually resulted Follow Up: Patient is to return in 4 weeks for routine OB appointment. Documented by Mojgan Ruffin LPN on behalf of: Soto Luu DO documented in this encounter Plan of Treatment DateTypeDepartmentCare Team (Latest Contact Info)Kzfkjmzfrdd85/22/2025 10:00 AM ESTAncillary Procedure [facility] [address] [place] [phone] 10/25/2025 10:30 AM ESTRoutine [facility] [address] [place] [phone] Anushka [place], [place] [address] [place] [phone] NameTypePriorityAssociated DiagnosesOrder ScheduleUS OB transvaginalImaging Routine 11 weeks gestation of ([facility]) Short cervix affecting ([facility]) First trimester ([facility]) Expected: 09/27/2025, Expires: 12/26/2025documented as of this encounter Procedures Procedure NamePriorityDate/TimeAssociated DiagnosisCommentsPOCT URINALYSIS YBYFVJMCOskioqs93/10/2025 11:48 AM EST 11 weeks gestation of ([facility]) Short cervix affecting ([facility]) First trimester ([facility]) documented in this encounter Results * (ABNORMAL) POCT urinalysis dipstick manually resulted (09/27/2025 11:48 AM EST)ComponentValueRef RangeTest MethodAnalysis TimePerformed AtPathologist SignatureColor, UAYellowClarity, UAClearGlucose, UANegativeNegative - 2000(110) ++++ mg/dLBilirubin, UANegativeNegative - 4(70) +++ mg/dLKetones, UA NegativeNegative - 160(16) ++++ mg/dLSpec Grav, UA1.0101 - 1.03Blood, UA PositiveNegative - 50 Denny/mcLpH, UA7.05 - 9Protein, UANegativeNegative - 2000(20) ++++ mg/dLUrobilinogen, UA1.00.2 - 12 mg/dLLeukocytes, UA2+Negative - 500+++ Mitchell/mcLNitrite, UANegativeNegative - PositiveSpecimen (Source) Anatomical Location / LateralityCollection Method / VolumeCollection Time Received OeknXjlck16/10/2025 11:48 AM EST Narrative Authorizing ProviderResult TypeResult StatusCorey Bell DOPOINT OF CARE TEST ENTER/EDIT ORDERABLESFinal Result documented in this encounter Visit Diagnoses Diagnosis 11 weeks gestation of ([facility]) Short cervix affecting ([facility]) Cervical shortening, unspecified as to episode of care or not applicable First trimester ([facility]) state, incidental Nausea and vomiting in ([facility]) Unspecified vomiting of , unspecified as to episode of care documented in this encounter
[2025-09-29 17:00] VITALS: BP 135/82; PULSE 102; TEMP 37.2; O2SAT 99; BMI 28.1
[2025-09-29 17:30] LABS: Glucose Urine UA NEGATIVE (NEGATIVE)
[2025-09-29 17:38] LABS: Cast Seen? NONE SEEN #/LPF (NONE SEEN); Crystals Seen? None Seen #/HPF (None Seen); Urine Culture Indicated YES-FRMC
[2025-09-29] MEDS: 0.9 % SODIUM CHLORIDE 1,000 ML 1000 ML IV (17:39)
[2025-09-29 18:08] LABS: Hematocrit 36.4 % (36.0-48.0); Hemoglobin 12.3 g/dL (12.0-16.0); Immature Granulocytes Abs Auto 0.03 10^3/uL (0.00-0.03); Immature Granulocytes Pct Auto 0.3 % (0.0-0.5); Lymphocytes Absolute Auto 1.8 10^3/uL (1.2-3.8); Mean Corpuscular HGB Conc 33.8 g/dL (29.9-35.2); Mean Corpuscular Hemoglobin 28.7 pg (26.7-34.0); Mean Corpuscular Volume 84.8 fL (81.0-99.0); Platelet Count 214 10^3/uL (150-450); Red Blood Count 4.29 10^6/uL (4.20-5.40); White Blood Count 9.5 10^3/uL (4.0-11.0)
[2025-09-29] MEDS: PROCHLORPERAZINE 10 MG/2 ML VIAL 5 MG IV (18:13)
[2025-09-29 18:23] LABS: Alanine Aminotransferase 21 U/L (14-59); Albumin Globulin Ratio 1.0; Albumin Level 3.4 g/dL (3.4-5.0); Alkaline Phosphatase 49 U/L (46-116); Anion Gap 10.8; Aspartate Amino Transferase 12 U/L (15-37); Blood Urea Nitrogen 6.0 mg/dL (7.0-18.0); Calcium 8.9 mg/dL (8.5-10.1); Carbon Dioxide 23.8 mmol/L (21.0-32.0); Chloride 103 mmol/L (98-107); Estimated GFR (African America >60 (>=60 mL/min/1.73m^2); Estimated GFR (Non-African Ame >60 (>=60 mL/min/1.73m^2); Globulin 3.3 g/dL; Glucose 75 mg/dL (74-106); Potassium 3.6 mmol/L (3.5-5.1); Sodium 134 mmol/L (136-145); Total Protein 6.7 g/dL (6.4-8.2)
--- OUTSIDE RECORDS SUMMARY | 2025-09-29 18:32 | XMS_ITS | CCD ---
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 Medical CenterComment on above:Performed By: #### CDP, BMP #### [address] [address] Center Manager: GLEN Mayo (Bld) [#/Vol]12.1 10*3/uLNormal4.5-13.5[facility] Atrium Medical CenterComment on above:Performed By: #### RICHARD KINSEY #### [facility] [address] [place] [address] Center Manager: Lashonda Mayo Panel InformationOrdered By: Radha Ortega on 04-48-4866Uorhh Strep (POC)[facility]ittman HospitalCOVID + FLU Quick Testingon [id number]-CoV-2 (COVID-19) RNA OSCAR+probe Ql (Unsp spec)Negative [facility] Other COVID + FLU Quick TestingNegativeEvergreenhealth [facility] Other Quick Strepon 10-26-2023S. pyogenes Org specific cx Ql (Throat)NegativeEvergreenhealth Monroe [facility]ocrative Other Quick StrepNoVal[facility]ge [facility] Other CARDIAC MATIAS ADMITon [id number] [Catalytic activity/Vol]200 U/LCritically qhkq97-441YcsMercy Health St. Charles HospitalComment on above: Performed By: #### RICHARD, CMADM #### [facility] [address] [place] [address] Dr. Alex Savage.MB [Mass/Vol]1.00 ng/mLNormal<=3.60The [facility] Comment on above:Performed By: #### RICHARD, CMADM #### [facility] [address] [address] [address] Alex Valenzuela<4.8Punrgd9.0-51.3The [facility] HospitalComment on above: Result Comment: CUT-OFF POINTS HAVE BEEN ESTABLISHED BASED ON THE FOURTH UNIVERSAL DEFINITIONS OF MYOCARDIAL INFARCTION. THE UPPER REFERENCE LIMIT (URL) OF TROPONIN, DEFINED THE 99TH PERCENTILE OF cTnI DISTRIBUTION IN A REFERENCE POPULATION, HAS BEEN CONFIRMED THE DECISION THRESHOLD FOR [place] DIAGNOSIS.Performed By: #### RICHARD, CMADM #### [facility] [address] [address] [address] Alex NamMYO37 ng/mLNormal9-82[facility] on above: Performed By: #### BMP, CMADM #### [facility] [address] [address] [address] Alex Barber AUTO DIFFon [id number] #0.0 103/ulNormal0.0-0.1The [facility] HospitalComment on above:Performed By: #### CBC #### [facility] [address] [address] [address] Alex NamBasophils/100 WBC (Bld)0.4 %Normal0.2-2.0The [facility] Comment on above:Performed By: #### CBC #### [facility] [address] [place] [address] Dr. Alex Stacy #0.1 103/ulNormal0.0-0.7The [facility] HospitalComment on above: Performed By: #### CBC #### [facility] [address] [address] [address] Alex Nicoleosinophils/100 WBC (Bld)0.5 %Critically low0.9-7.0[facility] on above:Performed By: #### CBC #### [facility] [address] [place] [address] Dr. Alex Nicolerythrocyte distribution width (RBC) [Ratio]12.9 %Ipgzbz64.0-15.0 The [facility] HospitalComment on above:Performed By: #### CBC #### [facility] [address] [place] [address] Dr. Alex NamHematocrit (Bld) [Volume fraction]43.5 %Kivjjl31.0-48.0[facility] on above:Performed By: #### CBC #### [facility] [address] [place] [address] Dr. Alex NamHemoglobin (Bld) [Mass/Vol]13.6 g/pEXsiqal69.0-16.0The [facility] Hospitalment on above:Performed By: #### CBC #### [facility] [address] [address] [address] Alex Haji #0.03 10e3/ulNormal0.00-0.03[facility] on above:Performed By: #### CBC #### [facility] [address] [place] [address] Dr. Alex Haji %0.3 %Normal0.0-0.5The [facility] HospitalComment on above: Performed By: #### CBC #### [facility] [address] [place] [address] Dr. Alex Gipson #3.7 103/ulNormal1.2-3.8The [facility] HospitalCommclaren caro region on above:Performed By: #### CBC #### [facility] [address] [place] [address] Dr. Alex Swartzhocytes/100 WBC (Bld)37.8 %Agmqsu76.5-60.0[facility] on above:Performed By: #### CBC #### [facility] [address] [place] [address] Dr. Alex ReardonUAL DIFF REQNONormalThe [facility] HospitalComment on above: Performed By: #### CBC #### [facility] [address] [place] [address] Dr. Alex Benito (RBC) [Entitic mass]28.5 exYnrrup28.7-34.0The [facility] HospitalComment on above:Performed By: #### CBC #### [facility] [address] [place] [address] Dr. Alex Benito (RBC) [Mass/Vol]31.3 g/uCRlfuma72.9-35.2The [facility] HospitalComment on above:Performed By: #### CBC #### [facility] [address] [place] [address] Dr. Alex Benito (RBC) [Entitic vol]91.2 wGWumbxk64.1-95.6The [facility] HospitalComment on above:Performed By: #### CBC #### [facility] [address] [address] [address] Alex Javed #0.9 103/ulCritically high0.3-0.8The [facility] Comment on above:Performed By: #### CBC #### [facility] [address] [address] [address] Alex Denisocytes/100 WBC (Bld)8.9 %Normal1.7-12.0The [facility] Comment on above:Performed By: #### CBC #### [facility] [address] [place] [address] Dr. Alex Foreman #5.1 103/ulNormal1.4-6.5The [facility] HospitalComment on above:Performed By: #### CBC #### [facility] [address] [place] [address] Dr. Alex Anayautrophils/100 WBC (Bld)52.1 %Bejwak61.0-75.0The [facility] HospitalComment on above:Performed By: #### CBC #### [facility] [address] [place] [address] Dr. Alex Gallegos mean volume (Bld) [Entitic vol]10.2 fLNormal9.5-13.5The [facility] HospitalComment on above:Performed By: #### CBC #### [facility] [address] [place] [address] Dr. Alex NamPLT288 103/hvNdhoiv918-885Tbo [facility] HospitalComment on above: Performed By: #### CBC #### [facility] [address] [place] [address] Dr. Alex NamRBC4.77 106/ulNormal3.40-5.30The [facility] HospitalComment on above:Performed By: #### CBC #### [facility] [address] [place] [address] Dr. Alex NamWBC9.8 103/ulNormal4.0-11.0The [facility] HospitalComment on above: Performed By: #### CBC #### [facility] [address] [place], [place] [address] Dr. Alex Macario-19 PCR ([facility])on 23-82-2688CDSS-CoV-2 (COVID-19) RNA OSCAR+probe Ql (Unsp spec)Not detectedNormalNOT DETECTEDMercy Health St. Charles Hospital Comment on above:Result Comment: This test is not yet approved or cleared by the [place] FDA. When there are no FDA-approved or cleared tests available, and other criteria are met, FDA can make tests available under an emergency access mechanism called an Emergency Use Authorization (EUA). The EUA for this test is supported by the Environmental Permitting Specialist of Health and Human Service's (HHS's) declaration [...] consistent with SARS-CoV-2.Performed By: #### DDIM #### [facility] [address] [place], [place] [address] Dr. Alex Garrido-DIMERon 15-70-3465X-DIMER<0.19Normal<=0.59[facility] Comment on above:Performed By: #### DDIM #### [facility] [address] [place], [place] [address] Dr. Alex Garrido-DIMER COMMENTSSEE BELOWNormalThOhioHealth O'Bleness HospitalComment on above:Result Comment: Increases in D-Dimer concentration [...] generalized hospitalization. Performed By: #### DDIM #### [facility] [address] [place] [address] Dr. Alex Buenrostro AND B AGon 67-02-5978WLGKLEFKZCNKGBlanchard Valley Health System Bluffton HospitalComment on above:Result Comment: Negative for Flu A protein angiten. Infection due to Flu A cannot be ruled out. FluA angiten in the sample may be below the detection limit of the test.Performed By: #### DDIM #### [facility] [address] [place] [address] Dr. Alex GuerinNEGJOSÉ MIGUEL [facility] Osteopathic ClinicComment on above: Result Comment: Negative for Flu B protein antigen. Infection due to Flu B cannot be ruled out. FluB antigen in the sample may be below the detection limit of the test.Performed By: #### DDIM #### [facility] [address] [place] [address] Dr. Alex Buenrostro AGNegativeNormalNEGATIVE SEE COMMENTThe [facility] HospitalComment on above:Performed By: #### DDIM #### [facility] [address] [place] [address] Dr. Alex Cruz AGNegativeNormalNEGATIVE SEE COMMENTThe [facility] HospitalComment on above:Performed By: #### DDIM #### [facility] [address] [place] [address] Dr. Alex GaoANCY URon [id number], QUALNegativeNormalNEGATIVEThe [facility] HospitalComment on above:Performed By: #### PREGU #### [facility] [address] [place] [address] Dr. Alex Odom CHEM 8 (BAS METB)on 63-75-1611TOKDbaydsRqe [facility] Comment on above:Performed By: #### BMP, CMADM #### [facility] [address] [place] [address] Dr. Yilan ChangAnion gap [Moles/Vol]11.6 mmol/LNormalMercy Health St. Charles Hospital Comment on above:Performed By: #### BMP, CMADM #### [facility] [address] [address] [address] Alex NamCalcium [Mass/Vol]9.9 mg/dLNormal8.5-10.1The [facility] Comment on above:Performed By: #### BMP, CMADM #### [facility] [address] [address] [address] Alex NamChloride [Moles/Vol]103 mmol/WDnuquq18-966Ffk [facility] Comment on above:Performed By: #### BMP, CMADM #### [facility] [address] [place] [address] Dr. Alex NamCO2 [Moles/Vol]29.2 mmol/PTerafj65.0-32.0[facility] Comment on above:Performed By: #### BMP, CMADM #### [facility] [address] [place] [address] Dr. Alex NamCreatinine [Mass/Vol]0.94 mg/dLNormal0.55-1.02The [facility] HospitalComment on above:Performed By: #### RICHARD, CMADM #### [facility] [address] [place] [address] Dr. Alex NicoleGFR-AF AMERICANNormal>=60The [facility] HospitalComment on above: Performed By: #### BMP, CMADM #### [facility] [address] [place] [address] Dr. Alex NicoleGFR-NON AF AMERICANNormal>=60The [facility] HospitalComment on above:Performed By: #### BMP, CMADM #### [facility] [address] [place] [address] Dr. Alex NamGlucose [Mass/Vol]95 mg/pIZbelrl43-535QjaMercy Health St. Charles Hospital Comment on above:Performed By: #### BMP, CMADM #### [facility] [address] [place] [address] Dr. Alex NamPotassium [Moles/Vol]3.8 mmol/LNormal3.5-5.1[facility] Comment on above:Performed By: #### BMP, CMADM #### [facility] [address] [address] [address] Alex NamSodium [Moles/Vol]140 mmol/LLsitls524-988IemMercy Health St. Charles Hospital Comment on above:Performed By: #### BMP, CMADM #### [facility] [address] [address] [address] Alex NamUrea nitrogen [Mass/Vol]18.0 mg/dLNormal6.4-19.3TPremier HealthComment on above:Performed By: #### BMP, CMADM #### [facility] [address] [place] [address] Dr. Alex Kirkland nitrogen/Creatinine [Mass ratio]19.1 mg/mgNoSelect Medical Cleveland Clinic Rehabilitation Hospital, Edwin ShawComment on above:Performed By: #### RICHARD, CMADM #### [facility] [address] [place] [address] Dr. Alex NamXR CHEST 1 Von [id number] CHEST 1 VEXAMINATION: XR CHEST 1 V HISTORY: Shortness of breath COMPARISON: None available. TECHNIQUE: Portable chest FINDINGS: The lung parenchyma is free of consolidation or infiltrate. No pneumothorax or pleural effusion. The cardiac, mediastinal and hilar contours are normal. The visualized osseous structures exhibit no gross abnormality. IMPRESSION: No acute cardiopulmonary abnormality. Electronically authenticated by: CHRIS WONG Date: 2022-11-12 22:43NoSelect Medical Cleveland Clinic Rehabilitation Hospital, Edwin ShawCULTURE URINEon [id number] URINEIsolate 1 Escherichia coli >100,000 cfu/mL of [...] S F Trimethoprim/Sulfamethoxazole <=[address] Charles HospitalComment on above:Performed By: #### URCX #### [facility] [address] [place] [address] Dr. Alex Watson URINE PROFILEon [id number] Ql (U)NegativeNormal NEGATIVEMercy Health St. Charles HospitalComment on above:Performed By: #### UMICRO, ERUR, PREGU #### [facility] [address] [place] [address] Dr. Alex NamClarity (U)CLEARNormalCLEARMercy Health St. Charles HospitalComment on above: Performed By: #### UMICRO, ERUR, PREGU #### [facility] [address] [place] [address] Dr. Alex Aragonlor (U)YELLOWNormalYELLOWMercy Health St. Charles HospitalComment on above: Performed By: #### UMICRO, ERUR, PREGU #### [facility] [address] [place] [address] Dr. Alex Vang micrscopic examination will be performed if indicated. NormalMercy Health St. Charles HospitalComment on above:Performed By: #### UMICRO, ERUR, PREGU #### [facility] [address] [place] [address] Dr. Alex NamGlucose Ql (U)NegativeNormalNEGATIVEMercy Health St. Charles HospitalComment on above:Performed By: #### UMICRO, ERUR, PREGU #### [facility] [address] [place] [address] Dr. Alex NamHemoglobin Ql (U)NegativeNormalNEGATIVERiverview Health Institute on above:Performed By: #### UMICRO, ERUR, PREGU #### [facility] [address] [place] [address] Dr. Alex NamKetones Ql (U)NegativeNormalNEGATIVEMercy Health St. Charles HospitalComment on above:Performed By: #### UMICRO, ERUR, PREGU #### [facility] [address] [address] [address] Alex NamLEUKOCYTESNegativeNormalNEGATIVEThe [facility] HospitalComment on above:Performed By: #### UMICRO, ERUR, PREGU #### [facility] [address] [address] [address] Alex Adkinstrite Ql (U)PositiveAbnormalNEGATIVEThe [facility] Comment on above:Performed By: #### UMICRO, ERUR, PREGU #### [facility] [address] [address] [address] Alex NampH (U)7.5 [pH]Normal5-9The [facility] HospitalComment on above: Performed By: #### UMICRO, ERUR, PREGU #### [facility] [address] [place] [address] Dr. Alex NamSPEC GRAVITY1.080Egjaeg2.005-<=1.025The [facility] HospitalComment on above:Performed By: #### UMICRO, ERUR, PREGU #### [facility] [address] [address] [address] Alex NamUA PROTEINNegativeNormalNEGATIVE/ TRACEThe [facility] Comment on above:Performed By: #### UMICRO, ERUR, PREGU #### [facility] [address] [place] [address] Dr. Alex Salcido MICRO INDINDICATEDNormalThe [facility] HospitalComment on above: Performed By: #### UMICRO, ERUR, PREGU #### [facility] [address] [address] [address] Alex Desaibilinogen Qn (U)1.0 {Colin'U}/dLNormal0.2 - 1.0The [facility] HospitalComment on above:Performed By: #### UMICRO, ERUR, PREGU #### [facility] [address] [place] [address] Dr. Alex NamPREGNANCY URon [id number], QUALNegativeNormalNEGATIVEThe [facility] HospitalComment on above:Performed By: #### UMICRO, ERUR, PREGU #### [facility] [address] [address] [address] Alex Hamlin MICROSCOPIC ONLYon [id number]U SEEN The [facility] HospitalComment on above:Performed By: #### UMICRO, ERUR, PREGU #### [facility] [address] [address] [address] Alex Gary identified Cx Nom (U)INDICATEDNoalThe [facility] HospitalComment on above:Performed By: #### UMICRO, ERUR, PREGU #### [facility] [address] [place] [address] Dr. Alex Valencia SEENNormalNONE SEENMercy Health St. Charles HospitalComment on above:Performed By: #### UMICRO, ERUR, PREGU #### [facility] [address] [place] [address] Dr. Alex Christieystals LM Nom (Urine sed)NONE SEENNormalNONE SEENThe [facility] HospitalCommclaren caro region on above:Performed By: #### UMICRO, ERUR, PREGU #### [facility] [address] [place] [address] Dr. Johnson ChangEpithelial cells LM Ql (Urine sed)FEWAbnormalNONE SEEN /RAREThe [facility] HospitalCommclaren caro region on above:Performed By: #### UMICRO, ERUR, PREGU #### [facility] [address] [place] [address] Dr. Alex MoranUSTRACEAbnormalNONE SEENMercy Health St. Charles HospitalCommclaren caro region on above:Performed By: #### UMICRO, ERUR, PREGU #### [facility] [address] [place] [address] Dr. Alex Hugo SEENAbnormal0-2The [facility] HospitalComment on above: Performed By: #### UMICRO, ERUR, PREGU #### [facility] [address] [address] [address] Alex NamWBC5-10AbnormalNONE SEENThe [facility] HospitalComment on above: Performed By: #### TANISHA JIMENEZ PREGU #### [facility] [address] [address] [address] Alex Nam Vital Signs Date TimeVital SignValuePerforming JmazgodqvXbtzrebn14-89-5053 10:23-0500Body .05 [facility]Mon[facility]11-07-2025 10:23-0500Diastolic blood mblmdfbi90 mm[Hg][facility]11-07-2025 10:23-0500Systolic blood mm[Hg][facility]01-06-2025 11:00-0500Body temperature 97.9 [degF]Manjit Frey MD Work Phone: [phone] [facility]01-06-2025 11:00-0500Diastolic blood sisdlpvt62 mm[Hg]Manjit Frey MD Work Phone: [facility]01-06-2025 11:00-0500Heart rate90 /minManjit Frey MD Work Phone: [facility]01-06-2025 11:00-0500 Respiratory rate16 /minManjit Frey MD Work Phone: [phone]01-06-2025 11:00-5264UnO4% (BldA) [Mass fraction]99 %Manjit Frey MD Work Phone: [facility]01-06-2025 11:00-0500Systolic blood bhghxidi023 mm[Hg]Manjit Frey MD Work Phone: [facility]01-06-2025 07:53-0500Body .3 Leny Fery MD Work Phone: [phone]- [facility]01-06-2025 07:53-0500Body mass index (BMI) [Ratio]28.06 kg/z3SzopjdhManjit Frey MD Work Phone: [facility] CenterMediaPhy [facility] HospitalmyinfoQKsjzyx21-89-0013 07:53-0500Body goaehm35.18 kgManjit Frey MD Work Phone: [employer] RubyMediaPhy St[facility] HospitalmyinfoQApdkew59-21-3279 07:22-0500Body msbtfbfuqdg26.7 [degF]Angelica Arora I, DO Work Phone: [facility] CenterMediaPhy [facility] HospitalmyinfoQJpxucs05-35-7396 07:22-0500Diastolic blood vxmqmwao35 mm[Hg]Angelica Arora I, DO Work Phone: [facility] CenterDolphin11-12-2024 07:22-0500Heart rate51 /minAngelica Arora I, DO Work Phone: [facility] CenterMediaPhy [facility] HospitalmyinfoQWbcbsd84-64-7634 07:22-0500 Respiratory rate18 /minAngelica Arora I, DO Work Phone: [facility] CenterMediaPhy [facility] HospitalmyinfoQHeevjb06-82-3942 07:22-4242VvZ3% (BldA) [Mass fraction]99 %Angelica Arora I, DO Work Phone: [facility] CenterMediaPhy [facility] HospitalmyinfoQDxubwi98-00-1415 07:22-0500Systolic blood fsdtolpm502 mm[Hg]Angelica Arora I, DO Work Phone: [employer] [facility] CenterMediaPhy [facility] HospitalmyinfoQNwzozi24-05-8137 08:00-0500Body ypywrk824 cmAngelica Arora I, DO Work Phone: [facility] CenterDolphin11-11-2024 08:00-0500Body mass index (BMI) [Ratio]30.11 kg/f2SvvlzcuaAngelica Arora I, DO Work Phone: [employer]11-11-2024 08:00-0500Body xxjapc24.11 kgMoeusebio Arora I, DO Work Phone: [employer] [facility]09-14-2024 12:12-0400Body juyaxt963.48 cmWadsworth-Rittman Hospital09-14-2024 12:12-0400Body mass index (BMI) [Percentile] Per age and sex84.7 %[facility] 07-02-2024 12:12-0400Body mass index (BMI) [Ratio]26.2 kg/t0AlkgxacxxWadsworth-Rittman Hospital09-14-2024 12:12-0400Body dawttrgfrqf27.2 [degF][facility]09-14-2024 12:12-0400Body unxzun23.09 kgWadsworth-Rittman Hospital09-14-2024 12:12-0400Diastolic blood yrrrxdjk20 mm[Hg][facility] [facility]09-14-2024 12:12-0400Heart hkyr189 /[facility]09-14-2024 12:12-0400Respiratory rate16 /[facility]09-14-2024 12:12-4391ZkC7% (BldA) [Mass fraction]99 %[facility]09-14-2024 12:12-0400Systolic blood edygekss077 mm[Hg] [facility]01-08-2024 15:40-0500Body edwaga789.72 cmPdorianasif TilleyBonnie Other [employer] Other 01-08-2024 15:40-0500Body mass index (BMI) [Ratio] 36.18 kg/q1Zfpwnv Bonnie Other [employer] Other 01-08-2024 15:40-0500Body [degF]Mireille Bonnie Other [employer] Other 01-08-2024 15:40-0500Body jpdkvo492.96 kgMireille Tilleymond Other [employer] Other 01-08-2024 15:40-0500Respiratory rate18 /minMireille Niocle Other [facility] [employer] Other 01-08-2024 15:40-0316GfK1% (BldA) [Mass fraction]98 % Mireille Nicole Other [facility] [employer] Other Encounters Encounter DateEncounter TypeCare ProviderFacilityStart: 08-25-2025 End: 87-96-1481vornkslfnrYaldh Nurse Noms Bcp ObNOMS [place] OBGYNComment on above:GA: 2s6vNydhu: 08-20-2025 End: 24-42-6782vqksrctekpCfzg E Hay-LAB Path Spec [place] HospStart: 08-20-2025 End: 90-53-0092Szxctsau ReferredAba Hernandez DO-LAB Path Spec [place] HospStart: 04-16-2025 End: 51-90-4410Twfuwltjm department patient visitNO PCP NO PCPChillicothe VA Medical Centertart: 10-24-2024 End: 49-70-1103eodorpxwvrQOQCJKU C [facility]art: 10-24-2024 End: 74-08-3779Yuufgxawmw hospital visit by physicianManjit Frey MD Work Phone: stvz ORComment on above:Post-op pain (Primary Dx); Recurrent peritonsillar abscessStart: 88-58-2837ikheqcfwoeZCDEIICBakari Ridley [facility] Hospitaltart: 08-29-2024 End: 40-59-9941Fwlsubftbb and management of inpatientMohammad Grantdionicioawilda DO Work Phone: stvz Observation UnitStart: 22-79-3155Mkctdxeshx and management of inpatientSLANRE MusaLoma Linda University Children's Hospitaltart: 07-02-2024 End: 83-17-6438fybxjyddsfQuzjrqqecFirelands [facility] Center Work Phone: Start: 07-02-2024 End: 49-48-6970Qsqwkbb encounter procedureFirelands Physician Group-[facility] Suraj Work Phone: Start: 10-26-2023 End: 39-98-4124fbrgdesdmxMooqxj Dymond Other [employer] Other Start: 70-76-7954Symqmp outpatient new 20 minutes Mireille NicoleFPG Urgent Care ClydeStart: 11-12-2022 End: 45-95-7002qekxcueakhNOCBRQ DIABFacility:J6Lnide: 02-21-2022 End: 32-39-0170ianqtqvixsEY KANU Navarro REINECKFacility:H8Jnear: 01-17-2022 End: 98-65-4093dohmseyxbnOQ KANU Navarro REINECKFacility:H1 Procedures DateProcedureProcedure DetailPerforming ClinicianStart: 42-03-1092Ygqmu dip stick/tablet rgnt non-auto w/o micrscpCorey Bell DO Work Phone: Start: 34-90-8777Kokla test visual color cmprsn Mira Frey MD Work Phone: Start: 47-21-7414Wzo prsmptv pthgnc organism scrn w/colony estimJose Ovalle MD Work Phone: Start: 04-70-4034Cvzuy metabolic panel calcium total Mark Ovalle MD Work Phone: Start: 88-86-6237Zszso Strep (POC) Plan of Treatment DateCare ActivityDetailAuthorStart: 12-16-2640IBxY/Tdap/Td vaccine (2 - Td or Tdap)DTaP/Tdap/Td vaccine (2 - Td or Tdap)[facility]Start: 09-27-2025 End: 28-06-9554Kxhbcsu encounter absgmwxtf70/10/2025 11:30 AM EST Routine NOMS Robyn OBGYGiovanna [address] [place] [address] [place] [address] Soto Luu, DO [address] [place] [address] [place] [address] DIANELYS [place] OBGYNStart: 08-25-2025 End: 52-50-8756DDS/RhABO/Rh Lab Routine Missed menses , unspecified gestational age ([facility]) Expected: 08/25/2025 (Approximate), Expires: 08/25/2026[facility] HealthcareComment on above:Expected: 08/25/2025 (Approximate), Expires: 08/25/2026Start: 08-25-2025 End: 58-95-9635Ruilp type and Indirect antibody screen panel - BloodType and screen Lab Routine Missed menses , unspecified gestational age ([facility]) Expected: 08/25/2025 (Approximate), Expires: 08/25/2026[facility] Healthcare Comment on above:Expected: 08/25/2025 (Approximate), Expires: 08/25/2026Start: 08-25-2025 End: 14-16-4881Kzvda of abuse panel - Urine by Screen methodRapid drug screen, urine Lab Routine , unspecified gestational age ([facility]) Encounter for supervision of normal first in first trimester ([facility]) Expected: 08/25/2025 (Approximate), Expires: 08/25/2026[facility] HealthcareComment on above: Expected: 08/25/2025 (Approximate), Expires: 08/25/2026Start: 76-89-2020Ebkpglxv identified in Urine by CultureMercy Health [facility] Start: 84-22-1028Pfgrc [facility] Systemtart: 08-15-2025 End: 51-04-0091QN Pelvis transvaginalUS OB transvaginal Imaging Routine Missed menses Positive urine test [facility]) Expected: 08/15/2025, Expires: 11/15/2025[facility] Healthcare Work Phone: comment on above:Expected: 08/15/2025, Expires: 11/15/2025Start: 10-24-2024 End: 50-68-7729Lchokjcreljvo & adenoidectomyTONSILLECTOMY ADENOIDECTOMY Recurrent peritonsillar abscess 10/24/2024 9:13 AM [facility]: 59-52-7299GOYAF-19 Vaccine ( season)COVID-19 Vaccine ( season)[facility]: 86-91-6315Zqkztbxfd vaccinationFlu vaccine (#1)[facility]: 46-76-9999Eazxkmdkf B vaccine (1 of 3 - 19+ 3-dose series)Hepatitis B vaccine (1 of 3 - 19+ 3-dose series)[facility]: 66-06-8796Yvmsibylu C screeningHepatitis C screenBon [facility]: 83-29-5514Rphzooufv for Chlamydia trachomatisChlamydia/GC screenBon [facility]: 81-07-9684BXT vaccine (2 - 3-dose series)HPV vaccine (2 - 3-dose series)[facility]: 76-83-9287YCF screeningHIV screenBon [facility]: 50-28-8165Jgpsomtpd vaccine (1 of 2 - 13+ 2-dose series)Varicella vaccine (1 of 2 - 13+ 2-dose series)[facility]: 80-36-2588Uuvobfsvhi Screen Depression ScreenBon [facility] HospitalBacteria identified in Urine by Culture Urine culture Microbiology Routine Missed menses Ordered: 08/25/2025[facility] HealthcareComment on above:Ordered: 08/25/2025BC W Auto Differential panel - BloodCBC and differential Lab Routine Missed menses , unspecified gestational age ([facility]) Ordered: 08/25/2025[facility] HealthcareComment on above: Ordered: 08/25/2025ontinuous pulse oximetryPulse oximetry, continuous Respiratory Care Routine Every 4hr until discontinued starting 08/29/2024on [facility] HospitalComment on above:Every 4hr until discontinued starting 08/29/2024 End: 61-88-6398Hcnxfow, Anaerobic and AerobicBon [facility] Work Phone: comment on above:One Time for 1 Occurrences starting 08/29/2024 until 08/29/2024Hemoglobin A1c/Hemoglobin.total in BloodHemoglobin A1c Lab Routine Missed menses , unspecified gestational age ([facility]) Ordered: 08/25/2025[facility] HealthcareComment on above:Ordered: 08/25/2025Hepatitis B virus surface Ag [Presence] in Serum or Plasma by ImmunoassayHepatitis B surface antigen Lab Routine Missed menses , unspecified gestational age ([facility]) Ordered: 08/25/2025[facility] HealthcareComment on above:Ordered: 08/25/2025Hepatitis C virus Ab [Presence] in Serum or Plasma by Immunoassay Hepatitis C antibody Lab Routine Missed menses , unspecified gestational age ([facility]) Ordered: 08/25/2025[facility] HealthcareComment on above: Ordered: 08/25/2025HIV-1/HIV-2 antigen/antibody combination immunoassayHIV-1 and HIV-2 antibodies Lab Routine Missed menses , unspecified gestational age ([facility]) Ordered: 08/25/2025[facility] HealthcareComment on above:Ordered: 08/25/2025 End: 46-52-8237BDZZJWFE PACU OXYGEN THERAPY PROTOCOLInitiate PACU Oxygen Therapy Protocol Respiratory Care Routine Continuous until discontinued starting 10/24/2024 [employer] Phone: comment on above:Continuous until discontinued starting 10/24/2024Oxygen therapy [Minimum Data Set]Initiate Oxygen Therapy Protocol Respiratory Care Routine As Needed until discontinued starting 08/19 [employer] Phone: Comment on above:As Needed until discontinued starting 08/29/2024athology studySurgical Pathology Lab Routine Recurrent peritonsillar abscess Release Upon Ordering for 1 Occurrences starting 10/24/2024 [employer] Phone: Comment on above:Release Upon Ordering for 1 Occurrences starting 10/24/2024Reagin Ab [Presence] in Serum by RPRRPR Lab Routine Missed menses , unspecified gestational age ([facility]) Ordered: 08/25/2025[facility] HealthcareComment on above:Ordered: 08/25/2025Rubella antibody, IgGRubella antibody, IgG Lab Routine Missed menses , unspecified gestational age ([facility]) Ordered: 08/25/2025[facility] CenterComment on above: Ordered: 08/25/2025 End: 26-44-0635LOIZGTDG PATHOLOGY REPORTSURGICAL PATHOLOGY REPORT Lab Routine Once for 1 Occurrences starting 10/24/2024 until 10/24/2024on [facility] HospitalComment on above:Once for 1 Occurrences starting 10/24/2024 until 10/24/2024US Pelvis transvaginalUS OB transvaginal Imaging Routine Missed menses Positive urine test ([facility]) 0:01 AM [facility] Vaginal pathogens panel - Vaginal fluid by OSCAR with probe detectionWadsworth-Rittman Hospital Payers DatePayer CategoryPayerPolicy [id number] Cross Blue ShieldBC ..[id number] Valley Hospital [id number] .[id number] .[id number] .[id number] 2.1.686682.3.57[id number] 2..840.1.815321.3.57[id number] 2.16.840.1.580903.3.57[id number] 2.0.1.947000.3.57[id number] 2.0.1.743522.3.57[id number] 2.0.1.754786.3.579.[id number] 2.0.1.963490.3.579.2.531 Social History DateTypeDetailFacilityUnknown if ever smokedNochildren's mercy hospital [employer] Other Start: 08-29-2024 End: 37-02-4630Idm Assigned At BirthInova Mount Vernon HospitalMediaPhy Flower HospitalStart: 04-24-2023 End: 36-26-6015Tfhnmzr smoking status NHISNever smoked tobacco (finding) [facility] Hospitaltart: 95-71-5371Rbt Assigned At BirthFemale [facility]itt[facility] HospitalTobacco smoking status NHISTobacco smoking consumption unknownBon [facility] HospitalStart: 08-29-2024 End: 80-88-0005Vejfxzg of Social functionBon [facility] HospitalStart: 73-08-9965Tlkkhuiu abuseDeniesFort Belvoir Community HospitalStart: 32-06-5788Iol assigned at birthNot on fileFort Belvoir Community HospitalStart: 91-25-7553Epdjmjc use and exposureSmokeless tobacco non-userInova Mount Vernon HospitalMediaPhy Flower HospitalStart: 10-24-2024 End: 89-08-1791Hbniabuyo beverage intakeLifetime non-drinker (finding)[facility] HealthSexFemale (finding)[facility] Hospitaltart: 19-98-8655FeauixjrlTJNT HealthcareNEGATED: Highlighted rowStart: NINFHistory of tobacco usePassive smokerKelechi [facility] History of Present illness Narrative 08-25-2025 Note Date & AbvrLzfzEamusgch86-64-1032 History of Present illness Narrative* Hillary BranchSHREYA [...] urinalysis dipstick manually resulted Positive urine test ([facility]) - OB transvaginal; Future Amenorrhea 6 weeks gestation of ([facility]) , unspecified gestational age ([facility]) - Type and screen; Future - ABO/Rh; Future - CBC and differential - Hemoglobin A1c - RPR - Rubella antibody, IgG - Hepatitis B surface antigen - Hepatitis C antibody - HIV-1 and HIV-2 antibodies - Rapid drug screen, urine; Future Encounter for supervision of normal first in first trimester ([facility]) - Rapid drug screen, urine; Future Nurse Note: Pt unsure of [place] billion to one. Pt was advised if she desires to do [place] to make sure labs are done together at [facility]. Pt was advised to have labs drawn at 9 weeks gestation. Pt is 6 weeks 5 days today. Follow Up: Patient is to have labs drawn at directed and return to office for initial OB appointment with provider. Patient may call office as needed with any concerns or questions. Nurse Visit Completed by: Hillary Branch MA documented in this encounterNOUniversity Hospital History of Present illness Narrative 10-24-2024 Note Date & SeuzMfyyBmkmbsqo62-70-3004 History of Present illness Narrative* Marla Mejia RN - 10/24/2024 10:41 AM EST Patient tolerating ice water and popsicle PO. Ambulated to restroom and voided spontaneously. OK todischarge per anesthesia so long as she tolerates PO pain medication prescribed on discharge. Family and patient informed of plan. * Corina Arias RN - 10/24/2024 7:28 AM EST Irrigationist reached out to patient. She is on her way. documented in this encounterBon [facility] 09-23-2024 Note Date & MwupWkyjKhiuawpw74-20-8654 Hospital Discharge instructions* Discharge Instructions* Angela Tabares RESEARCH LIBRARIAN - ANNIE - 09/23/2024 12:10 AM EST [...] it to your pharmacy or to a ecology professor's office for disposal if they have a medication drop box. If these options are not available, the remaining opioid medication can be poured down the sink. - NEVER take more than the prescribed dose of your medication. - ALWAYS follow instructions on the label. - As needed: Saline [place] may be purchased wvit-nkc-vzfdocs for congestion and secretions in your nose. You can use 1-2 sprays or drops to each nostril as needed. Follow-up: You will be contacted by the ENT nurses following surgery to evaluate your recovery in approximately 4-6 weeks. If you have any questions, please call the numbers below Useful Numbers: ENT Nurse triage line [phone] option 3 (ENT-related questions or concerns, 8am-4pm, Thursday through Thursday) Main Office [phone] (to schedule routine appointments) After hours contact number [phone] (After 4pm Thursday through Thursday and weekends; ask to speakwith ENT provider exploration engineer) documented in this encounterFort Belvoir Community Hospital Evaluation note 10-26-2023 Note Date & JlnwVanqLrrkimce84-42-5267 Evaluation note* Encounter Date Diagnosis Assessment Notes [...] no improvement in 2 to 3 days [employer] Other Evaluation note Note Date & TypeNoteFacilityEvaluation noteNo assessment information available [facility] Work Phone: Evaluation note Note Date & TypeNoteFacilityEvaluation note* Diagnosis Peritonsillar abscess- Primary Obesity Obesity, unspecified documented in this encounter [facility] note Note Date & TypeNoteFacilityEvaluation note* Diagnosis Recurrent peritonsillar abscess- Primary Post-op pain Other acute postoperative pain documented in this encounter [facility] note Note Date & TypeNoteFacilityEvaluation note* Diagnosis Missed menses Positive urine test ([facility]) Amenorrhea Absence of menstruation 6 weeks gestation of ([facility]) , unspecified gestational age ([facility]) Encounter for supervision of normal first in first trimester ([facility]) documented in this encounter [facility] History general Narrative - Reported Note Date & TypeNoteFacilityHistory general Narrative - Reported* Type Description Date Medical History Primary insomnia Medical HistoryAttention deficit hyperactivity disorder (ADHD), unspecified ADHD typeSurgical HistoryPE tubesSurgical Historycyst removalHospitalization History see above [employer] Other Reason for referral (narrative) Note Date & TypeNoteFacilityReason for referral (narrative)No reason for referral information availableCincinnati Va Medical Center Work Phone: Summary Purpose Family History No Family History Records FoundNo Family History Records FoundNo Family History Records FoundNo Family History Records FoundNo Family History Records FoundNo Family History Records Found Advance Directives No Advanced Directives Records Found Advance Directive Response Recorded Date/ Time Advance Directives No June 11:54am Date ActivatedDate GvufvrkqcxdIkuuqkyx08/11/2024 9:25 AMDate ActivatedDate GkejmmcqcjzMovdswyo96/11/2024 9:25 AM08/30/2024 2:34 PM Advance Directive Response Recorded Date/ Time Advance Directives No June 10:54am Chief Complaint and Reason for Visit Chief Complaint sore throat Chief Complaint Admit Date Unknown August 20, 2025 9 :00am Additional Source Comments INFORMATION SOURCE (unrecogn ized section and content) DATE CREATED AUTHOR 11/14/2022 [facility] DATE CREATED AUTHOR AUTHOR'S ORGANIZ ATION 10/30/2024 [facility] DATE CREATED AUTHOR AUTHOR'S ORGANIZ ATION 01/23/2025 [facility] DATE CREATED AUTHOR AUTHOR'S ORGANIZ ATION 04/17/2025 [facility] DATE CREATED AUTHOR AUTHOR'S ORGANIZ ATION 08/23/2025 [facility] DATE CREATED AUTHOR AUTHOR'S ORGANIZ ATION 08/31/2025 [facility] EPIC REASON FOR VISIT (unrecogniz ed section and content) SpecialtyDiagnoses / ProceduresReferred By ContactReferred To Contact Diagnoses 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 [J36] Procedures MS TONSILLECTOMY & ADENOIDECTOMY <AGE 12 TOTAL TONSILLECTOMY Manjit Frey MD [address] [address] [facility] [address] [place] [address] Referral IDStatusReasonStart DateExpiration DateVisits RequestedVisits [id number] Care Teams (unrecognized sec tion and content) [...] RN) * 2230 (Stopped - Provider: Julianna rBown RN) * 0355 (New Bag - Provider: Julianna Brown RN) * 0728 (Stopped - Provider: Julianna Brown RN) * 0820 (New Bag - Provider: Ray Mayer RN) * 0953 (Stopped - Provider: Ray Mayer RN) * 1545 (Due) * 2145 (Due) lidocaine-EPINEPHrine 1 %-1:568454 injection 20 mL (COMPLETED) 20 mL, IntraDERmal, [...] BE BASED ON THE PRIMARY CLINICAL RECORDS. [employer] provides no warranty or guarantee of the accuracy or completeness of information in this document.
--- OUTSIDE RECORDS SUMMARY | 2025-09-29 18:33 | XMS_ITS | Clinical Summary ---
Author Organization [facility] Healthcare Address [address] [place] [address] Care Team Providers Care General Teller Name Role Phone Unavailable Primary Care Provider Unavailabl e Allergies Active AllergyReactionsCriticalityNoted WaegHphtuktnBvmcgrpGyeedWbnqzp11/01/2017 Other Reaction(s): Other (See Comments) BmxccLdngsYmjhmc48/01/2017 Other Reaction(s): Unknown Reaction Medications MedicationSigDispense QuantityRefillsLast FilledStart DateEnd DateStatus ondansetron ODT (Zofran-ODT) 4 MG disintegrating tablet Indications:Nausea and vomiting in ([facility])Take 1 tablet (4 mg) by mouth every 6 (six) hours if needed for nausea or vomiting 30 tablet 5Active promethazine (Phenergan) 12.5 MG tablet Indications:Nausea and vomiting in ([facility])Take 1 tablet (12.5 mg) by mouth every 6 (six) hours if needed for nausea or vomiting for up to 30 doses Take 1 tablet by mouth every 6 hours as needed for nausea. 30 tablet 5Active ondansetron ODT (Zofran-ODT) 4 MG disintegrating tablet Take 4 mg by mouth every 8 (eight) hours if xkqaqc84 Discontinued Active Problems ProblemNoted DateDiagnosed DateShort cervix affecting ([facility]) 08/31/2025Estimated Date of WycdksftYxddbzgyBpl98/28/2026Based on Ultrasound Encounters DateTypeDepartmentCare GzdgCqugpqnsqnu13/12/2025Clinisync Result Encounter [facility] External Department Unsolicited Anyi Kelly PA 09/27/2025 11:30 AM ESTRoutine [facility] [address] [place] [phone] Soto Luu, DO 11 weeks gestation of ([facility]); Short cervix affecting ([facility]); First trimester ([facility]); Nausea and vomiting in ([facility])09/27/2025amboo flowsheet [facility] [address] [place] [phone] Soto Luu, DO 09/22/2025bstract [facility] [address] [phone] Soto Luu, DO 09/21/2025External Result Encounter NOMS External Department Unsolicited Soto Luu, DO 09/21/2025linisync Result Encounter NOMS External Department Unsolicited Soto Luu, DO 09/20/2025bstract [facility] [address] [place] [phone] Soto Luu, DO 09/18/2025Telephone [facility] [address] [address] Evie Jacobo MA 5Clinisync Result Encounter NOMS External Department Unsolicited Soto Luu, DO 08/31/2025Telephone [facility] [address] [place] [address] Yusra Hernandez LPN 08/25/2025 10:00 AM ESTInitial [facility] [address] [place] [phone] GA: 6w5d110/25/2024 9:30 AM ESTAncillary Procedure [facility] [address] [place] [address] Missed menses; Positive urine test ([facility])08/21/2025Telephone [facility] [address] [place] [address] Soto Luu DO from Last 3 Months Family History RelationNameStatusCommentsFatherAliveMotherAlive Social History Tobacco UseTypesPacks/DayYears UsedDateSmoking Tobacco: Never Tobacco Cessation:Counseling Given: Not Answered Alcohol UseStandard Drinks/WeekCommentsNever0 (1 standard drink = 0.6 oz pure alcohol)Estimated Date of TwsuscbrJridokyfNmh17/28/2026ased on UltrasoundSex and Gender InformationValueDate RecordedSex Assigned at BirthNot on fileLegal OsfKgjfdn10/15/2023 7:15 PM EDTGender IdentityNot on fileSexual OrientationNot on file Last Filed Vital Signs Vital SignReadingTime TakenCommentsBlood Iurwmebo529/80111/28/2024 11:40 AM EST Pulse--Temperature--Respiratory Rate--Oxygen Saturation--Inhaled Oxygen Concentration--Qbjxvj959 kg (230 lb 6.4 oz)09/27/2025 11:40 AM FCBPflxhg851.3 cm (5' 9 )02/21/2020 12:00 PM EDTBody Mass Index-- Plan of Treatment DateTypeDepartmentCare Team (Latest Contact Info)Xzmgtknzflo21/22/2025 10:00 AM ESTAncillary Procedure [facility] [address] [place] [address] 10/25/2025 10:30 AM ESTRoutine [facility] [address] [place] [address] Anushka Chandler, PURCHASE ORDER CHECKER [address] [place] [address] Procedures Procedure NamePriorityDate/TimeAssociated DiagnosisCommentsURINE [facility] Aoongvw2509/29/2025 5:20 PM ESTPOCT URINALYSIS CFCIMWLKOgxoixi24/10/2025 11:48 AM EST 11 weeks gestation of ([facility]) Short cervix affecting ([facility]) First trimester ([facility]) HBSAG SEUIAUWrxwqrh09/04/2025 3:54 PM EST RAPID PLASMA REAGIN, UPBSGXakhoij38/04/2025 3:54 PM EST HCV ANTIBODY RFX TO QUANT WDLWutrdum70/04/2025 3:54 PM EST ALL RUBELLA IGG PNVkgolmi35/04/2025 3:54 PM EST HIV AB/P24 AG WITH PEVVWKMzhpsmj24/04/2025 3:54 PM EST ALL TYPE AND TNBGEYGqzvpni68/04/2025 3:54 PM EST MLR HEMOGLOBIN F4YHimcnmr63/04/2025 3:54 PM EST ALL CBC WITH AUTO LWPLFijvzuq09/04/2025 3:54 PM EST URINE CULTURE - ORGZQhhtdke66/04/2025 3:40 PM EST TBH DRUG SCREEN RAPID (URINE)Zfodhmh3309/21/2025 3:40 PM EST CULTURE, URINE, YZUKWKKXkokhqd70/04/2025 3:40 PM EST BOX YEAADfuzsnv15/25/2025 8:20 AM EST POCT URINALYSIS JMWXCSNMHuarlaz01/07/2025 10:03 AM EST Missed menses POCT , JJXCFKzmrrvr20/07/2025 10:03 AM EST Missed menses US OB XOPMTWSNIJACWzabttn23/07/2025 10:01 AM EST Missed menses Positive urine test ([facility]) from Last 3 Months Results * (ABNORMAL) POCT urinalysis dipstick manually resulted (09/27/2025 11:48 AM EST) Only the most recent of2 resultswithin the time period is included. ComponentValueRef RangeTest MethodAnalysis TimePerformed AtPathologist Signature Color, UAYellowClarity, UAClearGlucose, UANegativeNegative - 2000(110) ++++ mg/dLBilirubin, UANegativeNegative - 4(70) +++ mg/dLKetones, UANegativeNegative - 160(16) ++++ mg/dLSpec Grav, UA1.0101 - 1.03Blood, UAPositiveNegative - 50 Denny/mcLpH, UA7.05 - 9Protein, UANegativeNegative - 2000(20) ++++ mg/dL Urobilinogen, UA1.00.2 - 12 mg/dLLeukocytes, UA2+Negative - 500+++ Mitchell/mcL Nitrite, UANegativeNegative - PositiveSpecimen (Source)Anatomical Location / LateralityCollection Method / VolumeCollection TimeReceived WrycCrknw59/10/2025 11:48 AM EST Narrative Authorizing ProviderResult TypeResult StatusCorey Bell DOPOINT OF CARE TEST ENTER/EDIT ORDERABLESFinal Result * HBSAG SCREEN (09/21/2025 3:54 PM EST)ComponentValueRef RangeTest Method Analysis TimePerformed AtPathologist SignatureHBSAG SCREENNegativeNegativeTBH Comment: Performed at: ??CB - [facility] [address] ??[id number] Shiftman: Danny Lopez PhD, Phone: ??[phone] Specimen (Source)Anatomical Location / LateralityCollection Method / Volume Collection TimeReceived Time09/21/2025 3:54 PM EST09/21/2025 3:56 PM EST Narrative CLINIS[facility] - 09/23/2025 1:08 PM EST Authorizing ProviderResult TypeResult StatusCorey Bell DOLAB BLOOD ORDERABLES Final ResultPerforming OrganizationAddressCity/State/ZIP CodePhone Number [facility] * RAPID PLASMA REAGIN, QUANT (09/21/2025 3:54 PM EST)ComponentValueRef RangeTest MethodAnalysis TimePerformed AtPathologist SignatureRAPID PLASMA REAGIN, QUANT Non ReactiveNonRea<1:1 titerTBHComment: Please Note: This test does not meet current guidelines for screening and diagnosis of syphilis. This test is intended for following treatment response in patients being treated for syphilis infection. To screen for syphilis infection, a reflex cascade that includes both RPR and a treponema-specific assay should be utilized, such as Treponema pallidum (Syphilis) Screening [place] (761791) or Rapid Plasma Reagin (RPR) Test With Reflex to Quantitative RPR and Confirmatory Treponema pallidum Antibodies (536464). Performed at: ??[address] ??[id number] Shiftman: Danny Lopez PhD, Phone: ??[phone] Specimen (Source)Anatomical Location / LateralityCollection Method / Volume Collection TimeReceived Time09/21/2025 3:54 PM EST09/21/2025 3:56 PM EST Narrative CLINISYNC - 09/23/2025 1:08 PM EST Authorizing ProviderResult TypeResult StatusCorey Bell DOLAB BLOOD ORDERABLES Final ResultPerforming OrganizationAddressty/State/ZIP CodePhone Number [facility] * HIV AB/P24 AG WITH REFLEX (09/21/2025 3:54 PM EST)ComponentValueRef RangeTest MethodAnalysis TimePerformed AtPathologist SignatureHIV AB/P24 AG SCREENNon ReactiveNon ReactiveTBHComment: HIV-1/HIV-2 antibodies and HIV-1 p24 antigen were NOT detected. There is no laboratory evidence of HIV infection. HIV Negative Performed at: ??[address] ??[id number] Shiftman: Danny Lopez PhD, Phone: ??[phone] Specimen (Source)Anatomical Location / LateralityCollection Method / Volume Collection TimeReceived Time09/21/2025 3:54 PM EST09/21/2025 3:56 PM EST Narrative CLINISYNC - 09/23/2025 3:10 AM EST Authorizing ProviderResult TypeResult StatusCorey Bell DOLAB BLOOD ORDERABLES Final ResultPerforming OrganizationAddLatrobe Hospitalty/State/ZIP CodePhone Number [facility] * HCV ANTIBODY RFX TO QUANT PCR (09/21/2025 3:54 PM EST)ComponentValueRef Range Test MethodAnalysis TimePerformed AtPathologist SignatureHCV ABNon ReactiveNon ReactiveTBHINTERPRETATION:Comment.TBHComment: Not infected with HCV unless early or acute infection is suspected (which may be delayed in an immunocompromised individual), or other evidence exists to indicate HCV infection. Performed at: ?? - [facility] [address] ??[id number] Shiftman: Danny Lopez PhD, Phone: ??[phone] Specimen (Source)Anatomical Location / LateralityCollection Method / Volume Collection TimeReceived Time09/21/2025 3:54 PM EST09/21/2025 3:56 PM EST Narrative CLINISYNC - 09/23/2025 5:07 AM EST Authorizing ProviderResult TypeResult StatusCorey Bell DOLAB BLOOD ORDERABLES Final ResultPerforming OrganizationAddLatrobe Hospitalty/State/ZIP CodePhone Number [facility] * MLR HEMOGLOBIN A1C (09/21/2025 3:54 PM EST)ComponentValueRef RangeTest Method Analysis TimePerformed AtPathologist SignatureGLYCOHEMOGLOBIN A1C5.04.5 - 6.2 %TBHComment: ADA RECOMMENDED LIMIT 4.0 - 6.0 ADA THERAPEUTIC TARGET < 7.0 ACTION SUGGESTED > 7.0 ESTIMATED AVERAGE KVNAFSB63lq/dLTBHSpecimen (Source)Anatomical Location / LateralityCollection Method / VolumeCollection TimeReceived Time09/21/2025 3:54 PM EST09/21/2025 3:56 PM EST Narrative CLINISYNC - 09/21/2025 4:32 PM EST Authorizing ProviderResult TypeResult StatusCorey Bell DOCLINISYNCFinal Result Performing OrganizationAddressty/State/ZIP CodePhone Number [facility] * ALL TYPE AND SCREEN (09/21/2025 3:54 PM EST)ComponentValueRef RangeTest Method Analysis TimePerformed AtPathologist SignatureBLOOD TYPEB PositiveTBHANTIBODY SCREENNEGATIVETBHSpecimen (Source)Anatomical Location / LateralityCollection Method / VolumeCollection TimeReceived Time09/21/2025 3:54 PM EST09/21/2025 3:56 PM EST Narrative CLINISYNC - 09/21/2025 5:31 PM EST [facility] , ?? Authorizing ProviderResult TypeResult StatusCorey Bell DOCLINISYNCFinal Result Performing OrganizationAddressCity/State/ZIP CodePhone Number [facility] * ALL RUBELLA IGG AB (09/21/2025 3:54 PM EST)ComponentValueRef RangeTest Method Analysis TimePerformed AtPathologist SignatureRUBELLA ANTIBODIES, IGG2.27 Immune >0.99 indexTBHComment: Non-immune <0.90 ?Equivocal ??0.90 - 0.99 Immune >0.99 Performed at: ?? - [facility] [address] ??[id number] Shiftman: Danny Lopez PhD, Phone: ??[phone] Specimen (Source)Anatomical Location / LateralityCollection Method / Volume Collection TimeReceived Time09/21/2025 3:54 PM EST09/21/2025 3:56 PM EST Narrative CLINISYNC - 09/23/2025 5:07 AM EST Authorizing ProviderResult TypeResult StatusCorey Bell DOCLINISYNCFinal Result Performing OrganizationAddressty/[facility] CodePhone Number [facility] * (ABNORMAL) ALL CBC WITH AUTO DIFF (09/21/2025 3:54 PM EST)ComponentValueRef RangeTest MethodAnalysis TimePerformed AtPathologist SignatureTBH WBC10.94.0 - 11.0 10 3/uLTBHTBH RBC4.444.20 - 5.40 10 6/uLTBHTBH HGB12.912.0 - 16.0 g/dLTBH TBH HCT37.936.0 - 48.0 %TBHTBH MCV85.481.0 - 99.0 fLTBHTBH MCH29.126.7 - 34.0 pgTBHTBH MCHC34.029.9 - 35.2 g/dLTBHTBH RDW13.011.0 - 15.0 %TBHTBH ZEF155573 - 450 10 3/uLTBHTBH MPV10.39.5 - 13.5 fLTBHNEUTROPHILS PERCENT AUTO72.643.0 - 75.0 %TBHLYMPHOCYTES PERCENT AUTO20.0(L)20.5 - 60.0 %TBHMONOCYTES PERCENT AUTO 6.61.7 - 12.0 %TBHTBH EO %0.1(L)0.9 - 7.0 %TBHBASOPHILS PERCENT AUTO0.30.2 - 2.0 %TBHIMMATURE GRANULOCYTES PCT AUTO0.40.0 - 0.5 %TBHNEUTROPHILS ABSOLUTE AUTO7.9(H)1.4 - 6.5 10 3/uLTBHLYMPHOCYTES ABSOLUTE AUTO2.21.2 - 3.8 10 3/uLTBH MONOCYTES ABSOLUTE AUTO0.70.3 - 0.8 10 3/uLTBHTBH EO #0.00.0 - 0.7 10 3/uLTBH BASOPHILS ABSOLUTE AUTO0.00.0 - 0.1 10 3/uLTBHIMMATURE GRANULOCYTES ABS AUTO 0.04(H)0.00 - 0.03 10 3/uLTBHSpecimen (Source)Anatomical Location / Laterality Collection Method / VolumeCollection TimeReceived Time09/21/2025 3:54 PM EST 09/21/2025 3:56 PM EST Narrative CLINISYNC - 09/21/2025 4:11 PM EST Authorizing ProviderResult TypeResult StatusCorey Bell DOCLINISYNCFinal Result Performing OrganizationAddressCity/State/ZIP CodePhone Number [facility] * URINE CULTURE - FR (09/21/2025 3:40 PM EST)ComponentValueRef RangeTest MethodAnalysis TimePerformed AtPathologist SignatureURINE CULTURE - [facility] ??Urine Culture - [facility] SEEFRMC [facility] RESULT^[facility] RESULT TBHURINE CULTURE - FRMCSEEN SEE SCANNED REPORT, NORMAL^SEE SCANNED REPORT, NORMALTBHSpecimen (Source)Anatomical Location / LateralityCollection Method / VolumeCollection TimeReceived Time09/21/2025 3:40 PM EST09/21/2025 3:56 PM EST Narrative CLINISYNC - 09/23/2025 4:51 PM EST Authorizing ProviderResult TypeResult StatusCorey Bell DOLAB BLOOD ORDERABLES Final ResultPerforming OrganizationAddressCity/State/ZIP CodePhone Number [facility] * TBH DRUG SCREEN RAPID (URINE) (09/21/2025 3:40 PM EST)ComponentValueRef Range Test MethodAnalysis TimePerformed AtPathologist SignatureCANNABINOID SCREEN URINENEGATIVENEGATIVETBHPHENCYCLIDINE SCREEN URINENEGATIVENEGATIVETBHCOCAINE SCREEN URINENEGATIVENEGATIVETBHMETHAMPHETAMINES SCREEN URINENEGATIVENEGATIVE TBHOPIATE SCREEN URINENEGATIVENEGATIVETBHAMPHETAMINE SCREEN URINENEGATIVE NEGATIVETBHBENZODIAZEPINES SCREEN URINENEGATIVENEGATIVETBHTRICYCLIC ANTIDEPRESSANT URINENEGATIVENEGATIVETBHMETHADONE SCREEN URINENEGATIVENEGATIVE TBHBARBITURATES SCREEN URINENEGATIVENEGATIVETBHOXYCODONE SCREEN URINENEGATIVE NEGATIVETBHBUPRENORPHINE SCREEN URINENEGATIVENEGATIVETBHComment: DRUG CLASS TEST SYSTEM CUT-OFF CONCENTRATIONS ARE FOLLOWS: AMP (Amphetamine): 500 ng/mL BAR (Barbiturates): 200 ng/mL BZO (Benzodiazepines): 150 ng/mL BUP (Buprenorphine): 10 ng/mL ISATU (Cocaine): 150 ng/mL mAMP (Methamphetamine): 500 ng/mL MTD (Methadone): 200 ng/mL OPI (Opiates): 100 ng/mL OXY (Oxycodone): 100 ng/mL PCP (Phencyclidine): 25 ng/mL THC (Cannabinoids): 50 ng/mL TCA (Trycyclic Antidepressants): 300 ng/mL Specimen (Source)Anatomical Location / LateralityCollection Method / Volume Collection TimeReceived Time09/21/2025 3:40 PM EST09/21/2025 3:56 PM EST Narrative CLINISYNC - 09/21/2025 4:21 PM EST Authorizing ProviderResult TypeResult StatusCorey Bell DOCLINISYNCFinal Result Performing OrganizationAddressCity/State/ZIP CodePhone Number [facility] * Urine culture (09/21/2025 3:40 PM EST)ComponentValueRef RangeTest Method Analysis TimePerformed AtPathologist SignatureFR NOTENo Growth 2 Days 09/23/2025 10:18 AM ESTSelect Medical Specialty [facility] CtrSpecimen (Source) Anatomical Location / LateralityCollection Method / VolumeCollection Time Received TimeUrineUrine specimen obtained by clean catch procedure / Unknown 09/21/2025 3:40 PM EST09/21/2025 9:01 PM ESTComment:Clean-Voided Midstream Narrative [facility] - 09/23/2025 10:18 AM EST Diagnosis: N92.6, Z34.90, Z34.01 Comment: Authorizing ProviderResult TypeResult StatusCorey Bell DOLAB MICROBIOLOGY - GENERAL ORDERABLESFinal ResultPerforming OrganizationAddressCity/State/ZIP Code Phone Number [facility] [address] [place] [address], [facility] [address] [phone] * BOX TEST (09/12/2025 8:20 AM EST)ComponentValueRef RangeTest MethodAnalysis TimePerformed AtPathologist SignatureBOX TEST SENT SFHOBPHUXXQY5BADXLMFUILV7 09/12/25TBHSpecimen (Source)Anatomical Location / LateralityCollection Method / VolumeCollection TimeReceived Time09/12/2025 8:20 AM EST09/12/2025 8:23 AM EST Narrative [facility] - 09/12/2025 8:24 AM EST Authorizing ProviderResult TypeResult StatusCorey Bell DOLAB BLOOD ORDERABLES Final ResultPerforming OrganizationAddressCity/State/ZIP CodePhone Number [facility] * (ABNORMAL) POCT , urine manually resulted (08/25/2025 10:03 AM EST) ComponentValueRef RangeTest MethodAnalysis TimePerformed AtPathologist SignaturePreg Test, UrPositiveNegativeSpecimen (Source)Anatomical Location / LateralityCollection Method / VolumeCollection TimeReceived TimeUrine 08/25/2025 10:03 AM EST Narrative Authorizing ProviderResult TypeResult StatusCorey Bell DOPOINT OF CARE TEST ENTER/EDIT ORDERABLESFinal Result * OB transvaginal (08/25/2025 10:01 AM EST)Anatomical RegionLaterality ModalityBodyUltrasoundSpecimen (Source)Anatomical Location / Laterality Collection Method / VolumeCollection TimeReceived Time08/26/2025 1:56 PM EST Addenda Addendum by Tanmay Duncan MD on 08/30/2025 11:04 AM EST ADDENDUM #1 The entire endocervical canal contains complex fluid, overall length 4.2 cm, maximum thickness 5-6 mm. Correlate with clinical exam findings, follow up imaging as clinically indicated. TRANSCRIBED BY: ? ELECTRONICALLY SIGNED BY: Tanmay Duncan MD Impressions 08/28/2025 8:05 AM EST Findings consistent with a live intrauterine gestation, current sonographic age of 6 weeks and 5 days resulting in an estimated date of delivery of April 15, 2026. TRANSCRIBED BY: ? ELECTRONICALLY SIGNED BY: Tanmay Duncan MD Narrative 08/28/2025 8:05 AM EST FINDINGS: A single intrauterine gestational sac is present. ??No subchorionic hemorrhage. ??A single pole is present. Normal heart rate at 132 beats per minute. ??Yolk sac also is seen. ?? Current sonographic age is 6 weeks and 5 days based on the crown-rump length measurement of 8 mm. ??Based onthis age, current estimated date of delivery is April 15, 2026. ??No pelvic fluid or adnexal mass present. ??Cervix is closed, 4.2 cm. Procedure Note Tanmay Dnucan MD - 08/28/2025 FINDINGS: A single intrauterine gestational sac is present. No subchorionichemorrhage. A single pole is present. Normal heart rate at132 beats per minute. Yolk sac also is seen. Current sonographic age is6 weeks and 5 days based on the crown-rump length measurement of 8 mm.Based on this age, current estimated date of delivery is April 15, 2026.No pelvic fluid or adnexal mass present. Cervix is closed, 4.2 cm. IMPRESSION: Findings consistent with a live intrauterine gestation, currentsonographic age of 6 weeks and 5 days resulting in an estimated date ofdelivery of April 15, 2026. TRANSCRIBED BY: ELECTRONICALLY SIGNED BY: Tanmay Duncan MD Authorizing ProviderResult TypeResult StatusCorey Bell DOIMG OB US PROCEDURES Edited Result - Final from Last 3 Months Insurance * Guarantor: Jess Padroncoyanelis TypeRelation to PatientDate of BirthPhone Billing AddressPersonal/UnkcvpMinv[address] [facility] [place] [address]
--- OUTSIDE RECORDS SUMMARY | 2025-09-29 18:33 | XMS_ITS | Clinical Summary ---
Author Organization [employer] (deja mi) [facility] tem Address [id number] [address] [place] [address] Care Team Providers Care Technical Maintenance Specialist Name Role Phone No Pcp, No Pcp Primary Care Provider Unavailabl e Allergies Active AllergyReactionsCriticalityNoted DateCommentsCodeineOther (See Comments) 05/19/2017Latex, Natural Sxqlgs4505/19/2017 Medications * This document contains information received from the source organization and may not represent a complete record from that organization. MedicationSigDispense QuantityRefillsLast FilledStart DateEnd DateStatus ondansetron ODT (ZOFRAN ODT) 4 mg disintegrating tablet Dissolve 1 tablet (4 mg total) on tongue every 8 (eight) hours as needed for nausea for up to 10 doses. 10 tablet 07/23/2023ctive ibuprofen (MOTRIN) 800 mg tablet Take 1 tablet (800 mg total) by mouth 3 (three) times a day. 21 tablet 07/23/2023ctive acetaminophen (TYLENOL EXTRA STRENGTH) 500 mg tablet Take 2 tablets (1,000 mg total) by mouth every 6 (six) hours as needed for pain. 30 tablet 07/23/2023ctive ibuprofen (MOTRIN) 800 mg tablet Take 1 tablet (800 mg total) by mouth 3 (three) times a day. 21 tablet 07/23/2023ctive dicyclomine (BENTYL) 20 mg tablet Take 1 tablet (20 mg total) by mouth every 6 (six) hours as needed (abdominal cramping). 20 tablet 07/23/2023ctive ondansetron ODT (ZOFRAN ODT) 4 mg disintegrating tablet Dissolve 1 tablet (4 mg total) on tongue every 8 (eight) hours as needed for nausea for up to 10 doses. 10 tablet 3Active ondansetron ODT (ZOFRAN ODT) 4 mg disintegrating tablet Dissolve 1 tablet (4 mg total) on tongue every 8 (eight) hours as needed for nausea for up to 10 doses. 10 tablet 5Active Active Problems ProblemNoted DateDiagnosed DateMild mood atxdonae48/08/2547Gjchhng31/08/2017 Attention deficit hyperactivity disorder, combined type05/26/2017Bipolar 1 disorderAnxiety Resolved Problems ProblemNoted DateDiagnosed DateResolved DateAdjustment hnnuklqr60/16/2020 03/10/2022 Immunizations ImmunizationAdministration DatesNext DueHPV Ijragfdqayal01/26/2020Influenza, Injectable, quadrivalent (PF)11/07/2019Meningococcal Fwuuvzgjw64/17/2017Tdap 06/04/2017 Family History RelationNameStatusCommentsFatherAliveMotherAlive Social History Tobacco UseTypesPacks/DayYears UsedDateSmoking Tobacco: NeverSmokeless Tobacco: Never Tobacco Cessation:Counseling Given: Yes Alcohol UseStandard Drinks/WeekCommentsNo0 (1 standard drink = 0.6 oz pure alcohol)ChildcareAnswerDate PjrgmbawZsfmurtsmPingwix08/12/2019EmploymentAnswer Date AigzqtygCccjypweboRmopyki32/12/2019Hunger ScreeningAnswerDate Recorded Within the past 12 months we worried whether our food would run out before we got money to buy more.Never True04/16/2025Within the past 12 months the food we bought just didn't last and we didn't have money to get more.Never True 04/16/2025Purpose - LifeAnswerDate RecordedPurpose and direction in lifeUnknown 1CommentsNoSex and Gender InformationValueDate RecordedSex Assigned at BirthNot on fileLegal JidVihmom54/06/2015 12:02 PM EDTGender IdentityNot on fileSexual OrientationNot on file Last Filed Vital Signs Vital SignReadingTime TakenCommentsBlood Oawbgnoz174/8104/16/2025 11:02 PM EDT Tuail14360/29/2025 11:02 PM TFZGfcmkhdvkje01.9 ??C (98.4 ??F)04/16/2025 11:02 PM EDTRespiratory Bdxi157004/16/2025 11:02 PM EDTOxygen Pqsjovewza30%04/16/2025 11:02 PM EDTInhaled Oxygen Concentration--Tqskgk92.2 kg (190 lb)04/16/2025 11:02 PM FMDRrtwgo442.3 cm (5' 9 )04/16/2025 11:02 PM EDTBody Mass Index28.0604/16/2025 11:02 PM EDT Plan of Treatment Health MaintenanceDue DateLast DoneCommentsDepression Xsgjewgbr27/19/2017Adult BMI Follow Up Plan2023OVID-19 Vaccine ( season)2025 09/13/2021, 08/23/2021Influenza Dcncxbk67, 07/24/2014, 07/23/2012, Additional history existsAdult BMI Orwxcdwmc11 Tobacco Aqbksfvgh83DTaP,Tdap and Td Vaccines (7 - Td or Tdap) , 02/19/2009, 04/14/2006, Additional history exists Medical Devices Not on file Insurance * Guarantor: Madie Willett TypeRelation to PatientDate of PhoneBilling AddressPersonal/LxworwEpmawe99/13/1981 [address] [address] Care Teams Team MemberRelationshipSpecialtyStart DateEnd Date No [place], [place] [address] [facility]
--- OUTSIDE RECORDS SUMMARY | 2025-09-29 18:33 | XMS_ITS ---
Author Organization [facility] Source Produ ction (ClinicalSummary Clone) Address Unknown Care Team Providers Care Chain Hoist Operator Name Role Phone Unavailable Primary Care Physician Unavailab le Results * [UNITY] CARRIER SCREEN Performed by: Caring in Place Component Value Range Date Sickle Cell Disease/Beta-Thalassemia/Hemoglobino pathies carrier screen NEGATIVE 09/22/2025 07:33 am UTCAlpha-Thalassemia carrier ufivtqMDMIUSFK61/05/2025 07:33 am UTCCystic Fibrosis carrier fzfychQTUXJDHN56/05/2025 07:33 am UTCSpinal Muscular Atrophy carrier screenNEGATIVE 2 SMN1 copies, SNP not rfsinjn2309/22/2025 07:33 am UTCFor detailed report, see PDFSee PDF09/22/2025 07:33 am UTC 09/22/2025 07:33 am UTC Social History Observation Value Start Date End Date
--- OUTSIDE RECORDS SUMMARY | 2025-09-29 18:33 | XMS_ITS | Encounter Summary ---
Author Organization [facility] Address [address] [place] [address] Care Team Providers Care Client Support Analyst Name Role Phone Unavailable Primary Care Provider Unavailabl e Encounter Details DateTypeDepartmentCare Team (Latest Contact Info)Cjvwpdsbaek39/10/2025amboo flowsheet [facility] ZAVALA [address] [place] [address] Soto Luu DO [address] [facility] [address] [place], [facility]11 Social History Tobacco UseTypesPacks/DayYears UsedDateSmoking Tobacco: NeverAlcohol UseStandard Drinks/WeekCommentsNever0 (1 standard drink = 0.6 oz pure alcohol) Estimated Date of XslkihnwLnkzjjflRdp57/28/2026ased on UltrasoundSex and Gender InformationValueDate RecordedSex Assigned at BirthNot on fileLegal SexFemale 12/31/2022 7:15 PM EDTGender IdentityNot on fileSexual OrientationNot on file documented as of this encounter Plan of Treatment DateTypeDepartmentCare Team (Latest Contact Info)Tuabfjwkaub18/22/2025 10:00 AM ESTAncillary Procedure N[facility] ZAVALA [address] [place] [address] 10/25/2025 10:30 AM ESTRoutine NOM[facility]oma ZAVALA [address] [place] [address] Anushka Chandler, LAZ [address] [place] [address] [place] [address] documented as of this encounter Visit Diagnoses Not on filedocumented in this encounter
--- OUTSIDE RECORDS SUMMARY | 2025-09-29 18:33 | XMS_ITS | Encounter Summary ---
Author Organization [facility] Address [address] [place] [address] Care Team Providers Care Sales Warehouse Driver Name Role Phone Unavailable Primary Care Provider Unavailabl e Encounter Details DateTypeDepartmentCare Team (Latest Contact Info)Tpsjqhtzpsc91/12/2025linisync Result Encounter [facility]S External Department Unsolicited Anyi Kelly PA [address] [facility] [address] [place], [facility]11 Social History Tobacco UseTypesPacks/DayYears UsedDateSmoking Tobacco: NeverAlcohol UseStandard Drinks/WeekCommentsNever0 (1 standard drink = 0.6 oz pure alcohol) Estimated Date of HmdfxbtgHfoeluzhHtn44/28/2026Based on UltrasoundSex and Gender InformationValueDate RecordedSex Assigned at BirthNot on fileLegal SexFemale 12/31/2022 7:15 PM EDTGender IdentityNot on fileSexual OrientationNot on file documented as of this encounter Plan of Treatment DateTypeDepartmentCare Team (Latest Contact Info)Bdxzmqtgjld61/22/2025 10:00 AM ESTAncillary Procedure [facility] Robyn ZAVALA [address] [place] [address] [place] [address] 10/25/2025 10:30 AM ESTRoutine NOMHoma ZAVALA [address] [facility] [place] [address] Anushka Chandler, ASSISTANT COACH [address] [facility] [place] [address] NameTypePriorityAssociated DiagnosesDate/TimeURINE CULTURE - [facility]abRoutine 09/29/2025 5:20 PM ESTdocumented as of this encounter Procedures Procedure NamePriorityDate/TimeAssociated DiagnosisCommentsURINE CULTURE - [facility] Umjznud7109/29/2025 5:20 PM ESTdocumented in this encounter Visit Diagnoses Not on filedocumented in this encounter
--- OUTSIDE RECORDS SUMMARY | 2025-09-29 18:33 | XMS_ITS | Encounter Summary ---
Author Organization [facility] Address [address] [place] [address] Care Team Providers Care Lan Support Specialist Name Role Phone Unavailable Primary Care Provider Unavailabl e Encounter Details DateTypeDepartmentCare Team (Latest Contact Info)Fyivsmvgheh45/04/2025External Result Encounter [facility] External Department Unsolicited Soto Luu DO [address] [place], [facility]11 Social History Tobacco UseTypesPacks/DayYears UsedDateSmoking Tobacco: NeverAlcohol UseStandard Drinks/WeekCommentsNever0 (1 standard drink = 0.6 oz pure alcohol) Estimated Date of RvmledjqHgwgoohzRok22/28/2026ased on UltrasoundSex and Gender InformationValueDate RecordedSex Assigned at BirthNot on fileLegal SexFemale 12/31/2022 7:15 PM EDTGender IdentityNot on fileSexual OrientationNot on file documented as of this encounter Plan of Treatment DateTypeDepartmentCare Team (Latest Contact Info)Gxjvpnokbyv41/22/2025 10:00 AM ESTAncillary Procedure [facility] Robyn ZAVALA [address] [facility] [place] [address] 10/25/2025 10:30 AM ESTRoutine [facility] ZAVALA [address] [facility] [place] [address] Anushka Chandler, PLANT PATHOLOGY TEACHER [address] [place] [address] documented as of this encounter Procedures Procedure NamePriorityDate/TimeAssociated DiagnosisCommentsCULTURE, URINE, NUIETLGFjzbpsd44/04/2025 3:40 PM EST documented in this encounter Results * Urine culture (09/21/2025 3:40 PM EST)ComponentValueRef RangeTest Method Analysis TimePerformed AtPathologist SignatureFR NOTENo Growth 2 Days 09/23/2025 10:[address] [facility]trSpec[facility] (Source) Anatomical Location / LateralityCollection Method / VolumeCollection Time Received TimeUrineUrine specimen obtained by clean catch procedure / Unknown 09/21/2025 3:40 PM EST09/21/2025 9:01 PM ESTComment:Clean-Voided Midstream Nick [facility] 09/23/2025 10:18 AM EST Diagnosis: N92.6, Z34.90, Z34.01 Comment: Authorizing ProviderResult TypeResult StatusCorey Bell DOLAB MICROBIOLOGY - GENERAL ORDERABLESFinal ResultPerforming OrganizationAddressCity/State/ZIP Code Phone Number [facility] [address] [place] [address], [facility] [address] [place] [address] documented in this encounter Visit Diagnoses Not on filedocumented in this encounter
[2025-09-29 18:34] VITALS: BP 135/72; PULSE 75; O2SAT 99
--- OUTSIDE RECORDS SUMMARY | 2025-09-29 18:34 | XMS_ITS | Encounter Summary ---
Author Organization [facility] Address [address] [place] [address] Care Team Providers Care Teletype Telegrapher Name Role Phone Unavailable Primary Care Provider Unavailabl e Encounter Details DateTypeDepartmentCare Team (Latest Contact Info)Cevblvatzix55/05/2025bstract DIANELYS ZAVALA [address] [place] [address] Soto Luu DO [address] [place] [address] Dr Doug [place], [facility]11 Social History Tobacco UseTypesPacks/DayYears UsedDateSmoking Tobacco: NeverAlcohol UseStandard Drinks/WeekCommentsNever0 (1 standard drink = 0.6 oz pure alcohol) Estimated Date of QykfueyeJjxpidkeJuw37/28/2026ased on UltrasoundSex and Gender InformationValueDate RecordedSex Assigned at BirthNot on fileLegal SexFemale 12/31/2022 7:15 PM EDTGender IdentityNot on fileSexual OrientationNot on file documented as of this encounter Plan of Treatment DateTypeDepartmentCare Team (Latest Contact Info)Horuwbqydiv81/22/2025 10:00 AM ESTAncillary Procedure N[facility]oma ZAVALA [address] [place] [address] 10/25/2025 10:30 AM ESTRoutine NOM[facility]oma ZAVALA [address] [place] [address] Anushka Chandler LAZ [address] [place] [address] [place] [address] documented as of this encounter Visit Diagnoses Not on filedocumented in this encounter
--- OUTSIDE RECORDS SUMMARY | 2025-09-29 18:34 | XMS_ITS | Encounter Summary ---
Author Organization [facility] Address [address] [place] [address] Care Team Providers Care Microsoft Dynamics Ax Consultant Name Role Phone Unavailable Primary Care Provider Unavailabl e Encounter Details DateTypeDepartmentCare Team (Latest Contact Info)Xfwkeeyzpfg68/01/2025Telephone [facility] Robyn ZAVALA [address] [place] [address] Evie Jacobo MA Social History Tobacco UseTypesPacks/DayYears UsedDateSmoking Tobacco: NeverAlcohol UseStandard Drinks/WeekCommentsNever0 (1 standard drink = 0.6 oz pure alcohol) Estimated Date of MfzphekaKqscjanaXvn40/28/2026Based on UltrasoundSex and Gender InformationValueDate RecordedSex Assigned at BirthNot on fileLegal SexFemale 12/31/2022 7:15 PM EDTGender IdentityNot on fileSexual OrientationNot on file documented as of this encounter Miscellaneous Notes * Telephone Encounter - Evie Jacobo MA - 09/18/2025 4:08 PM EST 10.1wk OB complaining of nausea and vomiting in . Pt requesting zofran. Med sent. documented in this encounter Plan of Treatment DateTypeDepartmentCare Team (Latest Contact Info)Llrknnspvhz92/22/2025 10:00 AM ESTAncillary Procedure [facility] Robyn ZAVALA [address] [place] [address] 10/25/2025 10:30 AM ESTRoutine [facility] Robyn ZAVALA [address] [facility] [place] [address] Anushka Chandler, WARDROBE MANAGER [address] [facility] [place] [address] documented as of this encounter Visit Diagnoses Diagnosis Nausea and vomiting in ([facility]) Unspecified vomiting of , unspecified as to episode of care documented in this encounter
--- OUTSIDE RECORDS SUMMARY | 2025-09-29 18:34 | XMS_ITS | Encounter Summary ---
Author Organization [facility] Address [address] [place] [address] Care Team Providers Care Radio Interference Investigator Name Role Phone Unavailable Primary Care Provider Unavailabl e Encounter Details DateTypeDepartmentCare Team (Latest Contact Info)Madlazguvrp10/04/2025linisync Result Encounter [facility]S External Department Unsolicited Soto Luu DO [address] [place] [address] [place], [facility]11 Social History Tobacco UseTypesPacks/DayYears UsedDateSmoking Tobacco: NeverAlcohol UseStandard Drinks/WeekCommentsNever0 (1 standard drink = 0.6 oz pure alcohol) Estimated Date of XrpimrkrHjmwhrksJbr42/28/2026ased on UltrasoundSex and Gender InformationValueDate RecordedSex Assigned at BirthNot on fileLegal SexFemale 12/31/2022 7:15 PM EDTGender IdentityNot on fileSexual OrientationNot on file documented as of this encounter Plan of Treatment DateTypeDepartmentCare Team (Latest Contact Info)Wdqdwnizpby91/22/2025 10:00 AM ESTAncillary Procedure [facility] Robyn ZAVALA [address] [place] [address] 10/25/2025 10:30 AM ESTRoutine NOM[facility]oma ZAVALA [address] [place] [address] Anushka Chandler, WOOD CARVER HAND [address] [place] [address] documented as of this encounter Procedures Procedure NamePriorityDate/TimeAssociated DiagnosisCommentsHBSAG SCREENRoutine 09/21/2025 3:54 PM EST RAPID PLASMA REAGIN, UBICVLfzuhgw29/04/2025 3:54 PM EST HIV AB/P24 AG WITH SBVVEAJdgtvfl05/04/2025 3:54 PM EST HCV ANTIBODY RFX TO QUANT BQOGgzdjfp49/04/2025 3:54 PM EST MLR HEMOGLOBIN T7VOvxuild73/04/2025 3:54 PM EST ALL TYPE AND PASQSWPyrndoo85/04/2025 3:54 PM EST ALL RUBELLA IGG UNSvzmvlh76/04/2025 3:54 PM EST ALL CBC WITH AUTO OPZHTznzghy18/04/2025 3:54 PM EST URINE CULTURE - ZNGQKzaofxa48/04/2025 3:40 PM EST TBH DRUG SCREEN RAPID (URINE)Tnvkotk6209/21/2025 3:40 PM EST documented in this encounter Results * HBSAG SCREEN (09/21/2025 3:54 PM EST)ComponentValueRef RangeTest Method Analysis TimePerformed AtPathologist SignatureHBSAG SCREENNegativeNegativeTBH Comment: Performed at: ??[facility] [address], [place], [place] ??[id number] Car Customizer: Danny Lopez PhD, Phone: ??[phone] Specimen (Source)Anatomical Location / LateralityCollection Method / Volume Collection TimeReceived Time09/21/2025 3:54 PM EST09/21/2025 3:56 PM EST Narrative CLINISYNC - 09/23/2025 1:08 PM EST Authorizing ProviderResult TypeResult StatusCorey Bell DOLAB BLOOD ORDERABLES Final ResultPerforming OrganizationAddressCity/State/ZIP CodePhone Number RICARDA DOMINGUEZ * RAPID PLASMA REAGIN, QUANT (09/21/2025 3:54 [...] utilized, such as Treponema pallidum (Syphilis) Screening [place] (666340) or Rapid Plasma Reagin (RPR) Test With Reflex to Quantitative RPR and Confirmatory Treponema pallidum Antibodies (972078). Performed at: ??[employer] ??[id number] Car Customizer: Danny Lopez PhD, Phone: ??[phone] Specimen (Source)Anatomical Location / LateralityCollection Method / Volume Collection TimeReceived Time09/21/2025 3:54 PM EST09/21/2025 3:56 PM EST Narrative MILLIENC - 09/23/2025 1:08 PM EST Authorizing ProviderResult TypeResult StatusCorey Bell DOLAB BLOOD ORDERABLES Final ResultPerforming OrganizationAddressty/State/ZIP CodePhone Number RICARDA DOMINGUEZ * HCV ANTIBODY RFX TO QUANT PCR (09/21/2025 3:54 PM EST)ComponentValueRef Range Test MethodAnalysis TimePerformed AtPathologist SignatureHCV ABNon ReactiveNon ReactiveTBHINTERPRETATION:Comment.TBHComment: Not infected with HCV unless early or acute infection is suspected (which may be delayed in an immunocompromised individual), or other evidence exists to indicate HCV infection. Performed at: ??[facility] ??[id number] Car Customizer: Danny Lopez PhD, Phone: ??[phone] Specimen (Source)Anatomical Location / LateralityCollection Method / Volume Collection TimeReceived Time09/21/2025 3:54 PM EST09/21/2025 3:56 PM EST Narrative CLINISYNC - 09/23/2025 5:07 AM EST Authorizing ProviderResult TypeResult StatusCorey Bell DOLAB BLOOD ORDERABLES Final ResultPerforming OrganizationAddEndless Mountains Health Systemsty/State/[place], [place]Phone Number [facility] * ALL RUBELLA IGG AB (09/21/2025 3:54 PM EST)ComponentValueRef RangeTest Method Analysis TimePerformed AtPathologist SignatureRUBELLA ANTIBODIES, IGG2.27 Immune >0.99 indexTBHComment: Non-immune <0.90 ?Equivocal ??0.90 - 0.99 Immune >0.99 Performed at: ??[facility] [employer] ??[id number] Car Customizer: Danny Lopez PhD, Phone: ??[phone] Specimen (Source)Anatomical Location / LateralityCollection Method / Volume Collection TimeReceived Time09/21/2025 3:54 PM EST09/21/2025 3:56 PM EST Narrative CLINISYCA - 09/23/2025 5:07 AM EST Authorizing ProviderResult TypeResult StatusCorey Bell DOCLINISYNCFinal Result Performing OrganizationAddressty/State/ZIP CodePhone Number [facility] * HIV AB/P24 AG WITH REFLEX (09/21/2025 3:54 PM EST)ComponentValueRef RangeTest MethodAnalysis TimePerformed AtPathologist SignatureHIV AB/P24 AG SCREENNon ReactiveNon ReactiveTBHComment: HIV-1/HIV-2 antibodies and HIV-1 p24 antigen were NOT detected. There is no laboratory evidence of HIV infection. HIV Negative Performed at: ??[facility] [employer] ??[id number] Car Customizer: Danny Lopez PhD, Phone: ??[phone] Specimen (Source)Anatomical Location / LateralityCollection Method / Volume Collection TimeReceived Time09/21/2025 3:54 PM EST09/21/2025 3:56 PM EST Narrative CLINISYNC - 09/23/2025 3:10 AM EST Authorizing ProviderResult TypeResult StatusCorey Bell ESPINOSA BLOOD ORDERABLES Final ResultPerforming OrganizationAddressCity/State/ZIP CodePhone Number RICARDA DOMINGUEZ * ALL TYPE AND SCREEN (09/21/2025 3:54 PM EST)ComponentValueRef RangeTest Method Analysis TimePerformed AtPathologist SignatureBLOOD TYPEB PositiveTBHANTIBODY SCREENNEGATIVETBHSpecimen (Source)Anatomical Location / LateralityCollection Method / VolumeCollection TimeReceived Time09/21/2025 3:54 PM EST09/21/2025 3:56 PM EST Narrative CLINISYNC - 09/21/2025 5:31 PM EST [facility] , ?? Authorizing ProviderResult TypeResult StatusCorey Bell DOCLINISYNCFinal Result Performing OrganizationAddressCity/State/ZIP CodePhone Number [facility] * MLR HEMOGLOBIN A1C (09/21/2025 3:54 PM EST)ComponentValueRef RangeTest Method Analysis TimePerformed AtPathologist SignatureGLYCOHEMOGLOBIN A1C5.04.5 - 6.2 %TBHComment: ADA RECOMMENDED LIMIT 4.0 - 6.0 ADA THERAPEUTIC TARGET < 7.0 ACTION SUGGESTED > 7.0 ESTIMATED AVERAGE XUXTBIE27bu/dLTBHSpecimen (Source)Anatomical Location / LateralityCollection Method / VolumeCollection TimeReceived Time09/21/2025 3:54 PM EST09/21/2025 3:56 PM EST Narrative CLINISYNC - 09/21/2025 4:32 PM EST Authorizing ProviderResult TypeResult StatusCorey Bell DOCLINISYNCFinal Result Performing OrganizationAddressty/State/ZIP CodePhone Number [facility] * (ABNORMAL) ALL CBC WITH AUTO DIFF (09/21/2025 3:54 PM EST)ComponentValueRef RangeTest MethodAnalysis TimePerformed AtPathologist SignatureTBH WBC10.94.0 - 11.0 10 3/uLTBHTBH RBC4.444.20 - 5.40 10 6/uLTBHTBH HGB12.912.0 - 16.0 g/dLTBH TBH HCT37.936.0 - 48.0 %TBHTBH MCV85.481.0 - 99.0 fLTBHTBH MCH29.126.7 - 34.0 pgTBHTBH MCHC34.029.9 - 35.2 g/dLTBHT RDW13.011.0 - 15.0 %TBHTBH YDO507043 - 450 10 3/uLTBHTBH MPV10.39.5 - 13.5 [...] Bell DOCLINISYNCFinal Result Performing OrganizationAddressCity/State/ZIP CodePhone Number [facility] * URINE CULTURE - FR (09/21/2025 3:40 [...] BLOOD ORDERABLES Final ResultPerforming OrganizationAddressCity/State/ZIP CodePhone Number [facility] * TBH DRUG SCREEN RAPID (URINE) (09/21/2025 [...] 3:40 PM EST09/21/2025 3:56 PM EST Narrative CLINISYCA - 09/21/2025 4:21 PM EST Authorizing ProviderResult TypeResult StatusCorey Bell DOCLINISYNCFinal Result Performing OrganizationAddressCity/State/ZIP CodePhone Number [facility] documented in this encounter Visit Diagnoses Not on filedocumented in this encounter
--- OUTSIDE RECORDS SUMMARY | 2025-09-29 18:34 | XMS_ITS | Encounter Summary ---
Author Organization [facility] Address [address] [place] [address] Care Team Providers Care Automated Teller Manager Name Role Phone Unavailable Primary Care Provider Unavailabl e Encounter Details DateTypeDepartmentCare Team (Latest Contact Info)Vchxtvwdtay44/03/2025bstract DIANELYS ZAVALA [address] [place] [address] Soto Luu DO [address] [place] [address] Dr Doug [place], [facility]11 Social History Tobacco UseTypesPacks/DayYears UsedDateSmoking Tobacco: NeverAlcohol UseStandard Drinks/WeekCommentsNever0 (1 standard drink = 0.6 oz pure alcohol) Estimated Date of VxqnnjmjHjdrmsysHzy26/28/2026ased on UltrasoundSex and Gender InformationValueDate RecordedSex Assigned at BirthNot on fileLegal SexFemale 12/31/2022 7:15 PM EDTGender IdentityNot on fileSexual OrientationNot on file documented as of this encounter Plan of Treatment DateTypeDepartmentCare Team (Latest Contact Info)Nreldzhtpox42/22/2025 10:00 AM ESTAncillary Procedure NOMHoma ZAVALA [address] [place] [address] 10/25/2025 10:30 AM ESTRoutine NOMHoma ZAVALA [address] [facility] [place] [address] Anushka Chandler LAZ [address] [place] [address] [place] [address] documented as of this encounter Visit Diagnoses Not on filedocumented in this encounter
--- OUTSIDE RECORDS SUMMARY | 2025-09-29 18:35 | XMS_ITS | Patient Health Record ---
Author Organization [facility] [place] Address [address] [place] [address] Support Name Relationship Address Phone Bassam Padron Emergency Contact Unknown Madie Padron Guarantor Unknown Reason For Referral No Information Plan Of Treatment No Information Insurance Providers Payer Name Payer Address Payer Phone Subscriber Number Group Number Insured Name Patient Relationship to Insured Coverage Start Date Coverage End Date SELF PAY ON PATIENT DEMOGRAPHICS Jose Padronelf - patient is the gshwzik0009/07/2008
--- OUTSIDE RECORDS SUMMARY | 2025-09-29 18:35 | XMS_ITS | Clinical Summary ---
Author Organization [facility] Address [address] [facility], [address] [place] [address] Care Team Providers Care Magazine Keeper Name Role Phone No, Pcp Primary Care Provider Unavailabl e Allergies Active AllergyReactionsCriticalityNoted DateCommentsCodeineHives,Other (See Comments)Iiltri9305/19/20171791MeuueCmjgzXxynbm35/01/2017 Medications No known medications Active Problems ProblemNoted DateDiagnosed DateRecurrent peritonsillar umcqgkk6708/30/2024 Peritonsillar uubdszr8508/29/20247432Uabiecx09/11/2024 Immunizations ImmunizationAdministration DatesNext DueDTaP, INFANRIX, (age 6w-6y), IM, 0.5mL 02/19/2009,04/14/2006,2005,2005,2005Hep B, ENGERIX-B, RECOMBIVAX-HB, (age - 19y), IM, 0.5mL2005,2005,2005 Hepatitis A Ped/Adol (Vaqta)08/04/2008,01/12/2007Hib PRP-OMP, PEDVAXHIB, (age 2m-6y, Adlt Risk), IM, 0.5mL01/14/2006,2005,2005,2005Influenza Virus Drywtcu0807/23/2012,08/25/2011,09/05/2009,08/30/2007MMR, PRIORIX, M-M-R II, (age 12m+), SC, 0.5mL02/19/2009,01/14/2006Pneumococcal, PCV-13, PREVNAR 13, (age 6w+), IM, 0.5mL01/14/2006,2005,2005,2005Poliovirus, IPOL, (age 6w+), SC/IM, 0.5mL2005,2005Varicella, VARIVAX, (age 12m+), SC, 0.5mL 01/14/2006 Family History Medical HistoryRelationNameCommentsNo Known ProblemsFatherNo Known Problems MotherRelationNameStatusCommentsFatherAliveMotherAlive Social History Tobacco UseTypesPacks/DayYears UsedDateSmoking Tobacco: NeverPassive Smoke Exposure: NeverSmokeless Tobacco: Never Tobacco Cessation:Counseling Given: Not Answered Alcohol UseStandard Drinks/WeekCommentsNever0 (1 standard drink = 0.6 oz pure alcohol)Interpersonal Safety Domain Source: IP Abuse ScreeningAnswerDate RecordedPhysical uipxaEwadya97/06/2025Verbal zdiprVqdsln05/06/2025Emotional oyrzyZoqkjc24/06/2025Financial xnyltTzoifa37/06/2025Sexual olkujDugpfe55/06/2025 CommentsNoSex and Gender InformationValueDate RecordedSex Assigned at BirthNot on fileLegal IgnOussjb55/10/2013 8:42 PM ESTGender IdentityNot on file Sexual OrientationNot on file Last Filed Vital Signs Vital SignReadingTime TakenCommentsBlood Fuaklvhi078/8410/24/2024 11:00 AM EST Kxvpx645510/24/2024 11:00 AM FSLQttoesighus56.6 ??C (97.9 ??F)10/24/2024 11:00 AM ESTRespiratory Hwon546810/24/2024 11:00 AM ESTOxygen Zbneagycuw61%10/24/2024 11:00 AM ESTInhaled Oxygen Concentration--Ewqcaa56.2 kg (190 lb)10/24/2024 7:53 AM EST Gldqtl353.3 cm (5' 9 )10/24/2024 7:53 AM ESTBody Mass Index28.0610/24/2024 7:53 AM EST Plan of Treatment Health MaintenanceDue DateLast DoneCommentsPolio vaccine (3 of 3 - 4-dose series), 2005Varicella vaccine (2 of 2 - 2-dose childhood series)Depression Eroath0601/04/2017HIV screen 01/05/2020HPV vaccine (2 - 3-dose series)/Chlamydia/GC screen 2021Meningococcal B vaccine (1 of 2 - Standard)2021Hepatitis C fykmnu8801/04/2023Flu vaccine (#1)501/, 07/23/2012, 08/25/2011, Additional history existsCOVID-19 Vaccine ( - season)2025 DTaP/Tdap/Td vaccine (7 - Td or Tdap)7006/04/2017, 02/19/2009, 04/14/2006, Additional history existsHepatitis B cjkqpbvEfoetrrqk2005, 2005, 2005Hib nfdyyzvOdgpinowi41/29/2006, 2005, 2005, Additional history existsPneumococcal 0-49 years VparauuCrsekacjx87/29/2006, 2005, 2005, Additional history existsHepatitis A vaccineCompleted 08/04/2008, 01/12/2007Measles,Mumps,Rubella (MMR) qruwusqVusaoomoyqlm62/04/2009, 01/14/2006Meningococcal (ACWY) vaccineAged Out06/04/2017No longer eligible based on patient's age to complete this topic Insurance * Guarantor: Kenia WILLETT TypeRelation to PatientDate of BirthPhone Billing AddressPersonal/FamilyMother [address] [place] [address] Advance Directives * Full Code (Latest Code Status on File) Date ActivatedDate OaglxbdbopsJzssuixc50/11/2024 9:25 AM08/30/2024 2:34 PM Care Teams Team MemberRelationshipSpecialtyStart DateEnd Date No, Pcp PCP - General07/04/24
--- OUTSIDE RECORDS SUMMARY | 2025-09-29 18:35 | XMS_ITS ---
Author Organization [facility] Source Produ ction (ClinicalSummary Clone) Address Unknown Care Team Providers Care Desk Officer Name Role Phone Unavailable Primary Care Physician Unavailab le Results * [UNITY] ANEUPLOIDY NIPT Performed by: [facility] Component Value Range Date Fraction 4.2% 09/19/2025 08:34 pm UTCRh(D) NIPTRhD UUNALKSI78/02/2025 08:34 pm UTCSex Chromosome AneuploidyNOT UEXRGTDI27/02/2025 08:34 pm UTCMonosomy XLOW RISK <1 in 08:34 pm UTCTrisomy 13LOW RISK <1 in 08:34 pm UTCTrisomy 18LOW RISK <1 in 08:34 pm UTCTrisomy 21LOW RISK <1 in 08:34 pm UTCFetal DhuRONW13/02/2025 08:34 pm UTCPregnancy ZqxeuylqeNPQHHVMLZ23/02/2025 08:34 pm UTCFor detailed report, see PDFSee PDF 09/19/2025 08:34 pm UT09/19/2025 08:34 pm UTC Social History Observation Value Start Date End Date
--- NOTE | 2025-09-29 18:52 | ED_ITS ---
HPI HPI - General Adult General Chief complaint: Nausea/Vomiting/Diarrhea Stated complaint: 12 WEEKS , VOMITING EVEN WITH MEDS Time Seen by Provider: 09/29/25 17:08 Source: patient Mode of arrival: walk-in Limitations: no limitations History of Present Illness HPI narrative: 20-year-old female 1 para 0 presents with chief complaint of increased vomiting with . She states she has had a 10 pound weight loss since her . She is approximately 12 to 13 weeks . She has had her MANAGER [employer] intake and is seeing Dr. Luu. She is currently on Phenergan and Zofran. She states she has vomited several times throughout the day today was unable to keep any fluids down. She is not febrile. Denies any urinary symptoms. Denies vaginal bleeding or discharge. Related Data Home Medications ?Medication ?Instructions ?Recorded ?Confirmed Vitamin PO DAILY 08/20/25 ondansetron 4 mg disintegrating 4 mg PO Q6H PRN nausea and vomiting 09/29/25 09/29/25 tablet promethazine 12.5 mg tablet 12.5 mg PO Q6H PRN nausea and 09/29/25 09/29/25 vomiting Previous Rx's ?Medication ?Instructions ?Recorded nitrofurantoin 100 mg PO BID 7 days #14 cap s 09/29/25 monohydrate/macrocrystals 100 mg capsule (Macrobid) Allergies Allergy/AdvReac Type Severity Reaction Status Date / Time codeine Allergy Severe Swelling Verified 09/29/25 16:56 of Lip/Tongue/Throat latex AdvReac Mild Hives Verified 09/29/25 16:56 Opioid HPI Opioid Management Most Recent Opioid Data: Last Pain Scale 2 08/20/25, 09:02 Ur Phencyclidine Scrn, (NEGATIVE) Negative , 15:40 Review of Systems ROS Status of ROS 10 or more systems reviewed and unremark able except as noted in history and below PFSH PFSH Social History Little interest or pleasure in doing things: not at all Feeling down, depressed, or hopeless: not at all Exam Narrative Exam Narrative: All Systems are negative except as noted/marked.All systems reviewed and otherwise negative Nurses note and vital signs reviewed and patient is not hypoxic. General: The patient appears well and in no apparent distress. Patient is resting comfortably on cart. Skin: Warm, dry, no pallor noted. There is no rash noted. Head: Normocephalic, atraumatic Eye: Normal conjunctiva, no drainage, EOMI. PERRL Ears, Nose, Mouth, and Throat: oral mucosa is moist. Nares patent. Mouth without vesicles. Ear canals patent. Tm's without Erythema Cardiovascular: Regular Rate and Rhythm Respiratory: Patient is in no distress, no accessory muscle use, lungs are clear to auscultation, no wheezing, rales or rhonchi Back: non-tender, no CVA tenderness bilaterally to percussion. GI: Normal bowel sounds, no tenderness to palpation, no masses appreciated. No rebound, guarding, or rigidity noted. Musculoskeletal: The patient has no evidence of calf tenderness, no pitting edema, symmetrical pulses noted bilaterally Neurological: A&O x4, normal speech Psychiatric: Cooperative Constitutional Vital Signs, click to edit/add: Last Vital Signs Temp 99 F 09/29/25 17:00 Pulse 75 09/29/25 18:34 Resp 16 09/29/25 18:34 BP 135/72 09/29/25 18:34 Pulse Ox 99 09/29/25 18:34 O2 Del Method Room Air 09/29/25 17:00 Course Vital Signs Vital signs: Vital Signs Temperature 99 F 09/29/25 17:00 Pulse Rate 102 H 09/29/25 17:00 Respiratory Rate 16 09/29/25 17:00 Blood Pressure 135/82 09/29/25 17:00 Pulse Oximetry 99 09/29/25 17:00 Oxygen Delivery Method Room Air 09/29/25 17:00 Temperature 99 F 09/29/25 17:00 Pulse Rate 75 09/29/25 18:34 Respiratory Rate 16 09/29/25 18:34 Blood Pressure 135/72 09/29/25 18:34 Pulse Oximetry 99 09/29/25 18:34 Oxygen Delivery Method Room Air 09/29/25 17:00 Medical Decision Making MDM Narrative Medical decision making narrative: 20-year-old female 1 para 0 presents with chief complaint of increased vomiting with . She states she has had a 10 pound weight loss since her . She is approximately 12 to 13 weeks . She has had her MANAGER [employer] intake and is seeing Dr. Luu. She is currently on Phenergan and Zofran. She states she has vomited several times throughout the day today was unable to keep any fluids down. She is not febrile. Denies any urinary symptoms. Denies vaginal bleeding or discharge. Patient presented here chief complaint nausea vomiting. She received a liter of fluids. CBC CMP were reviewed. Patient feels much better after receiving Compazine and Zofran and a liter of fluid. She be discharged home and follow-up with her MANAGER CONTRACT the next week reasons return to emergency room were discussed. Patient does have 5-10 WBCs with her urine. Denies urinary symptoms. Be placed on Macrobid. Differential Diagnosis Differential Diagnosis: UTI, hyperemesis Medical Records Medical records reviewed: Yes I reviewed the patient's medical records Lab Data Lab results reviewed: Yes I reviewed the patient's lab results Labs: Lab Results 09/29/25 09/29/25 Range/Units 17:20 18:03 WBC 9.5 (4.0-11.0) 10^3/uL RBC 4.29 (4.20-5.40) 10^6/uL Hgb 12.3 (12.0-16.0) g/dL Hct 36.4 (36.0-48.0) % MCV 84.8 (81.0-99.0) fL MCH 28.7 (26.7-34.0) pg MCHC 33.8 (29.9-35.2) g/dL RDW 13.0 (11.0-15.0) % Plt Count 214 (150-450) 10^3/uL MPV 10.5 (9.5-13.5) fL Neut % (Auto) 73.8 (43.0-75.0) % Lymph % (Auto) 19.2 L (20.5-60.0) % [place] % (Auto) 6.3 (1.7-12.0) % Eos % (Auto) 0.2 L (0.9-7.0) % Baso % (Auto) 0.2 (0.2-2.0) % Neut # (Auto) 7.0 H (1.4-6.5) 10^3/uL Lymph # (Auto) 1.8 (1.2-3.8) 10^3/uL [place] # (Auto) 0.6 (0.3-0.8) 10^3/uL Eos # (Auto) 0.0 (0.0-0.7) 10^3/uL Baso # (Auto) 0.0 (0.0-0.1) 10^3/uL Abs Immat Gran (auto) 0.03 (0.00-0.03) 10^3/uL Imm/Tot Granulo (auto) 0.3 (0.0-0.5) % Sodium 134 L (136-145) mmol/L Potassium 3.6 (3.5-5.1) mmol/L Chloride 103 (98-107) mmol/L Carbon Dioxide 23.8 (21.0-32.0) mmol/L Anion Gap 10.8 BUN 6.0 L (7.0-18.0) mg/dL Creatinine 0.75 (0.55-1.02) mg/dL Est GFR ( Amer) >60 (>=60 mL/min/1.73m^2) Est GFR (Non-Af Amer) >60 (>=60 mL/min/1.73m^2) BUN/Creatinine Ratio 8.0 Glucose 75 (74-106) mg/dL Calcium 8.9 (8.5-10.1) mg/dL Total Bilirubin 0.4 (0.2-1.0) mg/dL AST 12 L (15-37) U/L ALT 21 (14-59) U/L Alkaline Phosphatase 49 (46-116) U/L Total Protein 6.7 (6.4-8.2) g/dL Albumin 3.4 (3.4-5.0) g/dL Globulin 3.3 g/dL Albumin/Globulin Ratio 1.0 Urine Color Lt. yellow (YELLOW) Urine Clarity Sl cloudy (CLEAR) Urine pH 6.5 (5.0-9.0) Ur Specific [place] 1.015 (1.005-1.025) Urine Protein Trace (NEG/TRACE) mg/dL Urine Glucose (UA) Negative (NEGATIVE) mg/dL Urine Ketones >=80 A (NEGATIVE) mg/dL Urine Occult Blood Negative (NEGATIVE) Urine Nitrite Negative (NEGATIVE) Urine Bilirubin Small A (NEGATIVE) Urine Urobilinogen 0.2 (0.2-1.0) EU/dL Ur Leukocyte Esterase Small A (NEGATIVE) Urine RBC 0-2 (0-2) #/HPF Urine WBC 5-10 A (NONE SEEN) #/HPF Ur Squamous Epith Cells Moderate A (NONE/RARE) #/LPF Urine Crystals None seen (None Seen) #/HPF Urine Bacteria Small A (NONE SEEN) #/HPF Urine Casts None seen (NONE SEEN) #/LPF Urine Mucus Moderate A (NONE SEEN) Ur Culture Indicated? Yes-[facility] [place] Discharge Plan Discharge Chief Complaint: Nausea/Vomiting/Diarrhea Clinical Impression: Hyperemesis affecting , antepartum, Urinary tract infection Patient Disposition: Home, Self-Care Time of Disposition Decision: 18:50 Condition: Good Prescriptions / Home Meds: New nitrofurantoin monohyd/m-cryst [Macrobid] 100 mg capsule 100 mg PO BID 7 Days Qty: 14 0RF Rx Instructions: must administer with a meal/food No Action Vitamin tablet PO DAILY promethazine 12.5 mg tablet 12.5 mg PO Q6H PRN (Reason: nausea and vomiting) ondansetron 4 mg tablet,disintegrating 4 mg PO Q6H PRN (Reason: nausea and vomiting) Print Language: Danish Instructions: Hyperemesis Gravidarum (ED), Urinary Tract Infection in (ED) Referrals: Soto Luu DO [Physician, MANAGER CONTRACT] - 1 week Physician,Non-Staff, MD [Primary Care Provider] - 1 week
[2025-09-29] MEDS: NITROFURANTOIN MONOHYD/MAC-CRST 100 MG CAPSULE PO (19:38)
== END 2025-09-29 19:42 | disposition home or self-care (01) ==
PROVIDERS: Physician Assistant; Emergency Provider Emergency Medicine
DX: O21.0 Mild hyperemesis gravidarum (principal); O23.41 Unspecified infection of urinary tract in pregnancy, first trimester; N39.0 Urinary tract infection, site not specified; Z3A.12 12 weeks gestation of pregnancy
CPT/HCPCS: 36415; 80053; 81001; 85025; 87086; 87106; 96361; 96374; 96375; 99284; J0780; J2405